=== PATIENT | male | born 1940 | race Caucasian/White ===

== ENCOUNTER → 2019-08-03 | Outpatient (CLI) | payer MEDICARE, SELFPAY ==
--- NOTE | 2019-08-03 13:21 | VDLE_ITS ---
Reason For Study: Swelling, Pain RIGHT GSV is normal. CFV is compressible, spontaneous, phasic, competent and demonstrates normal augmentation. FV is compressible, spontaneous, phasic, competent and demonstrates normal augmentation. POP V is compressible, spontaneous, phasic, competent and demonstrates normal augmentation. T/P Trunk is compressible. PTV is compressible. RT PerV is compressible. Procedure Exam performed in department. A preliminary report was called and/or faxed to Dr. Fried. Interpretation Summary Deep veins of the right lower extremity are patent and compressible segmentally. There is no evidence of right lower extremity deep vein thrombosis. Valvular competence appears intact within the proximal deep venous system on the right . The right great saphenous vein appears patent and compressible segmentally. Ordering Physician: Chris Fried Referring Physician: Chris Fried Performed By: Afua Hensley, ELLEN, RVT
== END | disposition home or self-care (01) ==
PROVIDERS: Family Provider Family Medicine; PCP Family Medicine; Referring Provider Family Medicine; Visit Provider Family Medicine
DX: M79.89 Other specified soft tissue disorders (principal); M79.661 Pain in right lower leg
CPT/HCPCS: 93971

== ENCOUNTER 2019-08-14 07:24 | Emergency (ER) | payer MEDICARE, SELFPAY ==
[2019-08-14 07:25] VITALS: BP 164/84; PULSE 60; RESP 19; TEMP 36.7; O2SAT 99; BMI 25.8
--- NOTE | 2019-08-14 07:39 | EKG12_ITS ---
Test Reason : CP Blood Pressure : / mmHG Vent. Rate : 059 BPM Atrial Rate : 059 BPM P-R Int : 186 ms QRS Dur : 088 ms QT Int : 428 ms P-R-T Axes : 112 044 001 degrees QTc Int : 423 ms Sinus bradycardia Left ventricular hypertrophy with repolarization abnormality Abnormal ECG Confirmed by NAVEEN MCCABE, MINDY ([id number]), department editor SHERIDAN GARRIDO ([id number]) on 08/17/2019 9:39:02 AM Referred By: TREE Confirmed By:MINDY HODGE MD
[2019-08-14 07:42] VITALS: O2SAT 99
--- NOTE | 2019-08-14 07:43 | RAD_ITS ---
STUDY: X-RAY CHEST REASON FOR EXAM: Male, 79 years old. Chest pain TECHNIQUE: Single AP portable view of the chest. COMPARISON: 12/29/2012 FINDINGS: Status post median sternotomy. The lungs are clear and expanded. There is no demonstrated pleural abnormality. Normal size heart. Normal mediastinum and myles. Normal visualized pulmonary arteries. Normal visualized aortic arch and descending thoracic aorta. Normal visualized thoracic spine. Multiple healed left rib fractures. There is no demonstrated abnormality of the visualized soft tissue structures of the upper abdomen. RAD/Chest 1 View (Portable) IMPRESSION: No active disease. Electronically Signed: Earl Perdomo MD at 8:05 EST Tel , Service support ,
--- NOTE | 2019-08-14 07:50 | ED.VIS.GEN ---
History of Present Illness Chief Complaint: Chest Pain Informant: Patient Limited by: - - Required redirection since he would not answer questions. Onset: Today, Yesterday Context: Sudden Onset Timing: Intermittent Quality: Discomfort neck and anterior right chest Location: Throat and anterior right chest Current Severity: - - Not present Maximum Severity: Moderate Worsened by: Nothing Relieved by: Sitting upright Associated Symptoms: Shortness of breath, diaphoresis Narrative: Patient is an elderly male with history of coronary bypass surgery 30 years ago and placement of stent 20 years ago. He states he had a stress test September of this year at [place] which revealed no abnormality. He does have history of GERD. He reports yesterday morning he awakened from sleep several times with sensation of his throat feeling closed and shortness of breath. The discomfort and sensation of his throat closing was alleviated after sitting up. He had several episodes this morning. He also experienced diaphoresis this morning. Symptoms were alleviated with sitting upright. States he had an episode every 30 minutes. He ate approximately 6 hours prior to going to bed. He had nothing between dinner and time he went to bed. He denies fever, chills or night sweats. He denies ocular, visual or auditory symptoms. He denies swelling of his tongue or throat at this time. He is not on an SHERRIE inhibitor. He did inform me several nights ago he woke up in a cold sweat. He had no other symptoms at that time. He denies black or maroon-colored stool. He does have swelling of his right lower extremity status post trauma and is wearing a compressive hose. Prior similar symptoms: No Recent Illness/Hospitalization: No - Past Medical History (1) Atherosclerotic coronary vascular disease Status: Acute (2) History of hypertension Status: Acute (3) History of type 2 diabetes mellitus Status: Acute (4) History of BPH Status: Acute (5) History of gastroesophageal reflux (GERD) Status: Acute Past Medical History - Allergies and Home Meds Allergies/Adverse Reactions: Allergies alprazolam [From Xanax] Adverse Reaction (Verified 08/14/19 07:41) Other EXTREME AGITATION Primary Care Physician: Chris Fried MD [Primary Care Provider] - Prior records reviewed: Yes Surgical History: coronary bypass surgery Lives: Spouse/ Significant Other Smoking Status: Never smoker Alcohol: None Drugs: None Review of Systems General: Reports: Sweats. Denies: Chills, Fever, Weight loss Eyes: Denies: Visual changes - bilaterally, Blurred Vision - bilaterally ENT: Denies: Rhinorrhea, Sore throat Cardiovascular: Reports: Chest pain Respiratory: Reports: Dyspnea Gastrointestinal: Denies: Abdominal pain, Nausea, Vomiting, Diarrhea, Melena, Hematochezia Genitourinary: Denies: Dysuria, Hematuria, Frequency Musculoskeletal: Denies: Myalgias, Arthralgias, Neck pain, Back pain, Swelling, Extremity Pain, -, - Neurological: Denies: Headache, Weakness, Numbness Hematologic: Denies: Easy bruising, Easy bleeding Allergy: Denies: Uticaria, Swelling of the mouth, Swelling of the tongue Physical Exam Vital Signs/Narrative: Vital Signs Temp Pulse Resp BP Pulse Ox 08/14/19 07:42 99 08/14/19 07:25 98.1 F 60 19 H 164/84 H 99 Inital Vital Signs reviewed: Yes General: Well nourished, Well developed, No Acute Distress Head: Normocephalic, Atraumatic Eyes: Perrl, EOMI. Negative for: Pale conjunctiva, Scleral icterus ENT: Moist mucous membranes, No rhinorrhea, - - Uvula is midline. There is no edema. Neck: Supple, Nontender, No lymphadenopathy, No JVD Cardiovascular: Regular rate, Regular rhythm, No murmurs, Normal S1, Normal S2, - - There is a well-healed median sternotomy scar noted. Respiratory: No distress, CTA bilaterally, Chest nontender Abdomen: Soft, Nontender, Nondistended, Normal bowel sounds Back: Nontender, Normal Inspection Extremities: Nontender, No edema Skin: Normal color, No rash, No Trauma. Negative for: Cyanosis, Diaphoresis, Jaundice Neurological: Alert, Oriented x3, Cranial nerves II-XII grossly intact, Normal Strength, Normal Sensation, Normal Gait Psychological: Normal affect, Normal Mood Diagnostic/Tx/Re-eval Chest X-Ray - ED: 1 View, Read by ED Physician, Normal, Heart, Bony Structures, No Acute Disease, Chronic Changes Impressions Chest X-Ray 08/14/19 07:43 IMPRESSION: No active disease. Electronically Signed: Earl Perdomo MD at 8:05 EST Tel , Service support , 08/14/19 07:43 Chest 1 View (Portable) [RAD] Stat Laboratory Results 08/14/19 08/14/19 07:30 07:30 WBC 5.8 RBC 3.70 L Hgb 11.3 L Hct 34.0 L MCV 91.9 MCH 30.5 MCHC 33.2 RDW Std Deviation 40.6 RDW Coeff of Shana 12.0 Plt Count 581 H MPV 9.2 Immature Gran % (Auto) 0.500 Neut % (Auto) 48.7 Lymph % (Auto) 35.2 [place] % (Auto) 12.3 H Eos % (Auto) 2.3 Baso % (Auto) 1.0 Absolute Neuts (auto) 2.8 Absolute Lymphs (auto) 2.03 Nucleated RBC % 0 Sodium 126 L Potassium 5.3 H Chloride 93 L Carbon Dioxide 25.0 Anion Gap 8 BUN 20 H Creatinine 1.77 H Estim Creat Clear Calc 36.09 Est GFR (MDRD) Af Amer 48 L Est GFR (MDRD) Non-Af 40 L BUN/Creatinine Ratio 11.3 Glucose 163 H Calcium 9.2 Troponin I < 0.015 CBC is unremarkable. There is mild anemia, which is not new per patient and . Creatinine is elevated at 1.77. Patient states that is baseline for him. Troponin with onset of symptoms approximate 48 hours ago is normal. Based on patient's history and negative work-up suspect his chest pain is secondary to GERD. - EKG Initial EKG Interpretation: Sinus Bradycardia - Has bradycardia with a ventricular rate of 59. [place] interval is 186 ms. QS duration 88 ms. QT duration 428 ms. [place] is normal. There is evidence of mild LVH with no ossific ST-T wave changes. Prior: Unchanged - Medical Decision Making Since patient is greater than age 65 with known coronary disease and risk factors EKG blood work is obtained to assess for cardiac etiology. History is suggestive of reflux. Appropriate blood work was obtained to assess for anemia, renal function. EKG was obtained as well. Will obtain chest x-ray to determine if there is hiatal hernia or any pulmonary process that may be causing his symptoms. This would include esophageal disease. Since cardiac work-up is negative and symptoms are consistent with GERD he was prescribed omeprazole. ED Disposition - Plan for ED Patient: Disposition: Home or Assisted Living Diagnosis: Chest pain due to GERD Instructions: GERD (Adult), Lifestyle Changes for Controlling GERD Prescriptions: Omeprazole 40 mg PO DAILY #30 capsule.dr Prescription Printed Referrals: Chris Fried MD [Primary Care Provider] - 3-5 Days if not improving
[2019-08-14 07:59] LABS: Absolute Lymphocyte Count 2.03 X10^3/uL (0.83-4.51); Absolute Neutrophil Count 2.8 X10^3/uL (2.0-7.7); Basophil# 0.06 X10^3/uL; Eosinophil# 0.13 X10^3/uL; Eosinophils% 2.3 % (0-5); Hemoglobin 11.3 g/dL (13.0-16.5); Lymphocyte # 2.03 X10^3/ul (4.0); Lymphocyte % 35.2 % (19-41); Mean Corp Hgb Conc 33.2 g/dL (32-36); Mean Corpuscular Hgb 30.5 pg (27.0-32.0); Mean Corpuscular Volume 91.9 fL (80-94); Mean Platelet Vol. 9.2 fl (6.2-12.0); Monocyte# 0.71 X10^3/uL; Monocyte% 12.3 % (0-10); NRBC Flagged by Analyzer 0 % (0-5); Neutrophil # 2.81 X10^3/uL (2.7-7.7); Neutrophil % 48.7 % (47-70); Platelet Count 581 K/mm3 (150-450); RBC Distribution Width SD 40.6 fl (35.1-43.9); White Blood Count 5.8 K/mm3 (4.4-11.0)
[2019-08-14 08:02] LABS: Anion Gap 8 (5-15); BUN 20 mg/dL (7-18); BUN/Creat Ratio 11.3 RATIO (10-20); Calcium,Total 9.2 mg/dL (8.5-10.1); Chloride 93 mmol/L (98-107); Creatinine, Serum 1.77 mg/dL (0.70-1.30); EST Glomerular Filtration Rate 40 mL/min (>60); Est Glom Filt Rate - Afr Amer 48 mL/min (>60); Estimated Creatinine Clearance 36.09 ml/min; Glucose 163 mg/dL (74-106); Potassium 5.3 mmol/L (3.5-5.1); Sodium Level 126 mmol/L (136-145)
[2019-08-14 09:13] VITALS: BP 134/76; PULSE 55; RESP 19; O2SAT 98
[2019-08-14 09:41] VITALS: BP 133/78; PULSE 56; RESP 18; O2SAT 99
== END 2019-08-14 09:41 | disposition home or self-care (01) ==
PROVIDERS: Emergency Provider Emergency Medicine; Family Provider Family Medicine; PCP Family Medicine
DX: K21.9 Gastro-esophageal reflux disease without esophagitis (principal); R07.9 Chest pain, unspecified; I25.10 Atherosclerotic heart disease of native coronary artery without angina pectoris; Z95.1 Presence of aortocoronary bypass graft; I10 Essential (primary) hypertension; E11.9 Type 2 diabetes mellitus without complications; N40.0 Benign prostatic hyperplasia without lower urinary tract symptoms
CPT/HCPCS: 71045; 80048; 84484; 85025; 93005; 99284; A4216

== ENCOUNTER 2019-09-01 12:55 | Inpatient (IN) | payer MEDICARE, SELFPAY ==
[2019-09-01] VITALS (8 sets, daily range): BP systolic 135–154; BP diastolic 66–78; PULSE 57–71; RESP 15–16; TEMP 36.6–37.1; O2SAT 97–98; BMI 26.4; BMI 25.9
--- NOTE | 2019-09-01 13:14 | EKG12_ITS ---
Test Reason : ABNL LABS Blood Pressure : / mmHG Vent. Rate : 060 BPM Atrial Rate : 060 BPM P-R Int : 186 ms QRS Dur : 096 ms QT Int : 412 ms P-R-T Axes : 000 056 027 degrees QTc Int : 412 ms Normal sinus rhythm Normal ECG Confirmed by NAVEEN MCCABE, MINDY ([id number]), rewrite editor RANDA PEDERSEN ([id number]) on 09/02/2019 11:25:05 AM Referred By: Bonita Randall Confirmed By:MINDY HODGE MD
--- NOTE | 2019-09-01 13:15 | ED.DCSUM_ITS ---
History of Present Illness Chief Complaint: Abn Labs Informant: Patient Narrative: Patient is a 79-year-old male with history of BPH, hypertension and diabetes mellitus presenting with abnormal lab work. Patient had blood work that showed a sodium of 120 and a potassium 5.7. This was a repeat lab draw. He was sent to the emergency room for further evaluation. Patient is on losartan. He denies any history of hyponatremia. He is not currently on any steroids. He states otherwise he is been feeling well. He denies any physical complaints at this time. Past Medical History - Allergies and Home Meds Allergies/Adverse Reactions: Allergies alprazolam [From Xanax] Adverse Reaction (Verified 09/01/19 12:58) Other EXTREME AGITATION Past Medical History: - - BPH, hypertension, proximal atrial fibrillation, coronary artery disease, hyperlipidemia, DM 2, CKD 3 Surgical History: coronary bypass surgery Lives: With Family Smoking Status: Never smoker Review of Systems General: Denies: Chills, Fever, Sweats Eyes: Denies: Visual changes - bilaterally, Diplopia ENT: Denies: Rhinorrhea, Sore throat Cardiovascular: Denies: Chest pain, Palpitations Respiratory: Denies: Dyspnea, Cough, Dyspnea on exertion Gastrointestinal: Denies: Abdominal pain, Nausea, Vomiting, Diarrhea, Melena, Hematochezia Genitourinary: Denies: Dysuria, Hematuria, Frequency Musculoskeletal: Denies: Back pain, Extremity Pain Skin: Denies: Rash, Wounds Neurological: Denies: Headache, Weakness, Numbness Physical Exam Vital Signs/Narrative: Vital Signs Temp Pulse Resp BP Pulse Ox 09/01/19 12:55 98.8 F 68 15 147/66 H 98 Inital Vital Signs reviewed: Yes General: Well nourished, Well developed, No Acute Distress Head: Normocephalic, Atraumatic Eyes: Perrl, EOMI ENT: Moist mucous membranes, No rhinorrhea Neck: Supple, Nontender Cardiovascular: Regular rate, Regular rhythm, No murmurs Respiratory: No distress, CTA bilaterally, Chest nontender Abdomen: Soft, Nontender, Nondistended, Normal bowel sounds Back: Nontender, Normal Inspection Extremities: Nontender, No edema Skin: Normal color, No rash Neurological: Alert, Oriented x3, Cranial nerves II-XII grossly intact, Normal Strength, Normal Sensation Psychological: Normal affect, Normal Mood Diagnostic/Tx/Re-eval Chest X-Ray - ED: 2 View, Read by ED Physician, Read by Radiologist, No Acute Disease Clinical Impression(s) from Imaging Studies Chest X-Ray 09/01/19 14:00 IMPRESSION: Hyperinflation. No acute abnormality is seen. Electronically Signed: Jerson Brasher, at 14:20 EST , Service support , Laboratory Data 09/01/19 09/01/19 09/01/19 13:30 13:30 14:05 WBC 7.5 RBC 3.17 L Hgb 9.9 L Hct 28.4 L MCV 89.6 MCH 31.2 MCHC 34.9 RDW Std Deviation 41.4 RDW Coeff of Shana 12.6 Plt Count 213 MPV 10.2 Immature Gran % (Auto) 0.300 Neut % (Auto) 74.1 H Lymph % (Auto) 14.6 L [place] % (Auto) 8.9 Eos % (Auto) 1.7 Baso % (Auto) 0.4 Absolute Neuts (auto) 5.6 Absolute Lymphs (auto) 1.09 Nucleated RBC % 0 Sodium Cancelled 125 L Potassium Cancelled 6.1 H* Chloride Cancelled 95 L Carbon Dioxide Cancelled 24.0 Anion Gap Cancelled 6 BUN Cancelled 21 H Creatinine Cancelled 1.61 H Estim Creat Clear Calc Cancelled 39.67 Est GFR (MDRD) Af Amer Cancelled 54 L Est GFR (MDRD) Non-Af Cancelled 44 L BUN/Creatinine Ratio Cancelled 13.0 Glucose Cancelled 117 H Calcium Cancelled 8.8 Urine Color Urine Clarity Urine pH Ur Specific [place] Urine Protein Urine Glucose (UA) Urine Ketones Urine Occult Blood Urine Nitrite Urine Bilirubin Urine Urobilinogen Ur Leukocyte Esterase Urine RBC Urine WBC Ur Squamous Epith Cells Urine Bacteria Urine Mucus 09/01/19 14:20 WBC RBC Hgb Hct MCV MCH MCHC RDW Std Deviation RDW Coeff of Shana Plt Count MPV Immature Gran % (Auto) Neut % (Auto) Lymph % (Auto) [place] % (Auto) Eos % (Auto) Baso % (Auto) Absolute Neuts (auto) Absolute Lymphs (auto) Nucleated RBC % Sodium Potassium Chloride Carbon Dioxide Anion Gap BUN Creatinine Estim Creat Clear Calc Est GFR (MDRD) Af Amer Est GFR (MDRD) Non-Af BUN/Creatinine Ratio Glucose Calcium Urine Color Yellow Urine Clarity Clear Urine pH 6.0 Ur Specific [place] 1.010 Urine Protein 30 H Urine Glucose (UA) Normal Urine Ketones Negative Urine Occult Blood Negative Urine Nitrite Negative Urine Bilirubin Negative Urine Urobilinogen Normal Ur Leukocyte Esterase Negative Urine RBC 0 SEEN Urine WBC 0 SEEN Ur Squamous Epith Cells 0 SEEN Urine Bacteria 0 SEEN Urine Mucus 0 SEEN - Rhythm Strip Rhythm Strip: Sinus Rhythm Rate: 60 Ectopy: None - EKG Initial EKG Interpretation: Sinus Rhythm, - - Normal sinus rhythm with a rate of [address] segments Normal axis - Medical Decision Making Patient is evaluated for abnormal hemoglobin potassium. He was found to have an elevated potassium as well as a low sodium. Patient is not have any EKG changes and is asymptomatic. He has not given sodium bicarb or calcium gluconate as he is not having any EKG changes. He is given a total of 1 L of IV fluids in the emergency room. He will be admitted to PCU for further electrolyte monitoring. I imagine his electrode abnormalities are secondary to his diuretics. Chest x- rays obtained does not show any abnormal masses. Patient is stable at time of disposition. He is agreeable with this plan. ED Disposition - Plan for ED Patient: Disposition: Acute Care Hospital [facility] Diagnosis: Hyperkalemia, Hyponatremia
[2019-09-01 13:37] LABS: Absolute Lymphocyte Count 1.09 X10^3/uL (0.83-4.51); Absolute Neutrophil Count 5.6 X10^3/uL (2.0-7.7); Basophil# 0.03 X10^3/uL; Basophil% 0.4 % (0-1); Eosinophil# 0.13 X10^3/uL; Eosinophils% 1.7 % (0-5); Hematocrit 28.4 % (40-54); Hemoglobin 9.9 g/dL (13.0-16.5); Lymphocyte # 1.09 X10^3/ul (4.0); Lymphocyte % 14.6 % (19-41); Mean Corp Hgb Conc 34.9 g/dL (32-36); Mean Corpuscular Hgb 31.2 pg (27.0-32.0); Mean Corpuscular Volume 89.6 fL (80-94); Mean Platelet Vol. 10.2 fl (6.2-12.0); Monocyte# 0.67 X10^3/uL; Monocyte% 8.9 % (0-10); NRBC Flagged by Analyzer 0 % (0-5); Neutrophil # 5.55 X10^3/uL (2.7-7.7); Neutrophil % 74.1 % (47-70); Platelet Count 213 K/mm3 (150-450); RBC Distribution Width CV 12.6 % (11.6-14.6); RBC Distribution Width SD 41.4 fl (35.1-43.9); Red Blood Count 3.17 M/mm3 (4.6-6.2); White Blood Count 7.5 K/mm3 (4.4-11.0)
--- NOTE | 2019-09-01 14:00 | RAD_ITS ---
STUDY: X-RAY CHEST REASON FOR EXAM: Male, 79 years old. Add potassium and decreased sodium levels. TECHNIQUE: PA and lateral views of the chest. COMPARISON: Comparison is made with prior examination of August 14, 2019. FINDINGS: EKG electrodes are seen. Hyperinflation. Scattered calcified granulomas. There is no demonstrated pleural abnormality. Sternal cerclage wires and vascular clips are present from a prior sternotomy and coronary artery bypass graft procedure (CABG). Normal mediastinum and myles. Normal visualized pulmonary arteries. There is atherosclerotic tortuosity of the aortic arch and descending thoracic aorta. There are degenerative changes of the visualized thoracic spine. Normal visualized ribs, clavicles, and shoulders. There is no demonstrated abnormality of the visualized soft tissue structures of the upper abdomen. RAD/Chest PA and Lateral IMPRESSION: Hyperinflation. No acute abnormality is seen. Electronically Signed: Jerson Brasher, at 14:20 EST , Service support ,
[2019-09-01 14:28] LABS: Bacteria 0 SEEN /hpf (None Seen); Mucous, Urine 0 SEEN /hpf (<or=2+); Red Blood Cells-Urine 0 SEEN /hpf (0-5); Squamous Epithelial Cells - UA 0 SEEN /hpf (0-5); White Blood Cells 0 SEEN /hpf (0-5)
[2019-09-01 14:29] LABS: Anion Gap 6 (5-15); BUN 21 mg/dL (7-18); Calcium,Total 8.8 mg/dL (8.5-10.1); Chloride 95 mmol/L (98-107); Creatinine, Serum 1.61 mg/dL (0.70-1.30); EST Glomerular Filtration Rate 44 mL/min (>60); Est Glom Filt Rate - Afr Amer 54 mL/min (>60); Estimated Creatinine Clearance 39.67 ml/min; Glucose 117 mg/dL (74-106); Potassium 6.1 mmol/L (3.5-5.1); Sodium Level 125 mmol/L (136-145)
--- NOTE | 2019-09-01 14:29 | ED.RN ---
LAB CALLED WITH POTASSIUM 6.1.
[2019-09-01 14:30] LABS: Color, Urine Yellow (Yellow); Glucose, Dipstick Normal (Normal); Ketone-Dipstick Negative (Negative); Leukocyte Esterase-Dipstick Negative /ul (Negative); Nitrite-Dipstick Negative (Negative); Occult Blood-Urine Negative /ul (Negative); Protein-Dipstick 30 mg/dl (Negative); Urine Bilirubin Dipstick Negative (Negative); Urine Clarity Clear (Clear); Urine Urobilinogen Normal (Normal)
--- NOTE | 2019-09-01 15:12 | PCM.HP.STD ---
Problem List (1) Atherosclerotic coronary vascular disease Status: Chronic Qualifiers: Coronary Disease-Associated Artery/Lesion type: unspecified vessel or lesion type Associated angina: angina presence unspecified (2) History of BPH Status: Chronic (3) History of gastroesophageal reflux (GERD) Status: Chronic (4) History of hypertension Status: Chronic (5) History of type 2 diabetes mellitus Status: Chronic History of Present Illness Date of Admission: 09/01/19 Chief Complaint: Abnormal labs The patient is a 79 year old M with past medical history of CAD status post CABG, stents, hypertension, hyperlipidemia, type II DM who presented from his primary care doctor's office with abnormal blood work. Patient denied any complaints of diarrhea or nausea or vomiting. He is on losartan. He denied any fever or chills or dizziness or chest pain. Vitals in ED show temperature of 98.8F, heart rate 68, blood pressure 147 over 60s, respiratory 15, SPO2 was 90% on room air. BC count of 7.5, hemoglobin 9.9, platelet count 213, sodium 125, potassium 2.5, chloride 95, BUN 21, creatinine 1.61, which is about his baseline. His UA was unremarkable. Admitting chest x-ray showed no acute cardiopulmonary process. Past Medical History Past Medical History (Chronic Problems): Chronic Problems Atherosclerotic coronary vascular disease (Chronic) History of hypertension (Chronic) History of type 2 diabetes mellitus (Chronic) History of BPH (Chronic) History of gastroesophageal reflux (GERD) (Chronic) Allergies alprazolam [From Xanax] Adverse Reaction (Verified 09/01/19 12:58) Other EXTREME AGITATION Home Medications: Ambulatory Orders Medication Instructions Recorded Amlodipine [Norvasc] 5 mg PO DAILY 08/14/19 Aspirin 325 mg PO DAILY 08/14/19 Atorvastatin Calcium [Lipitor] 40 mg PO QHS 08/14/19 Cinnamon Bark [Cinnamon] 500 mg PO DAILY 08/14/19 Isosorbide Mononitrate [Imdur] 60 mg PO DAILY 08/14/19 Losartan Potassium [Cozaar] 50 mg PO DAILY 08/14/19 Metformin HCl 850 mg PO BID 08/14/19 Metoprolol Tartrate [Lopressor 50 mg PO BID 08/14/19 (Beta Jessy)] [place]-3 Fatty Acids/Fish Oil 1 cap PO BID 08/14/19 [[place] 3 Fish Oil Softgel] Omeprazole 40 mg PO DAILY #30 capsule. 08/14/19 Vitamin A 10,000 unit PO DAILY 08/14/19 Ascorbic Acid [Vitamin C] 1,000 mg PO DAILY 09/01/19 Cyanocobalamin (Vitamin B-12) 1,000 mcg PO DAILY 09/01/19 [Vitamin B-12] Magnesium Oxide [Mag-Ox 400] 400 mg PO DAILY 09/01/19 Tamsulosin HCl [Flomax] 0.4 mg PO QHS 09/01/19 Turmeric 400 mg PO DAILY 09/01/19 Vitamin E 400 unit PO DAILY 09/01/19 Surgical History: coronary bypass surgery, - - s/p cardiac stenst Lives: Spouse/ Significant Other Smoking Status: Never smoker Tobacco Use: Non-smoker Alcohol: None Drugs: None Review of Systems Constitutional: Denies: Anorexia, Chills, Fever, Night Sweats, Malaise, Weakness, Weight Change, Fatigue Eyes: Denies: Cataracts, Conjunctivae Inflammation, Pain, Redness HEENT: Denies: Difficulty Hearing, Difficulty Swallowing, Head Aches, Hearing Changes, Sinus Congestion, Sinus Drainage Cardiovascular: Denies: Chest Pain, Claudication, Orthopnea, Palpitations, Paroxysmal Noc. Dyspnea Respiratory: Denies: Cough, Hemoptysis, Shortness of breath at rest, Shortness of breath upon exertion, Sputum production Gastrointestinal: Denies: Abdominal Pain, Constipation, Hematemesis, Hematochezia, Nausea, Vomiting Genitourinary: Denies: Dysuria, Frequency, Incontinence, Nocturia Musculoskeletal: Denies: Joint Pain, Joint stiffness, Joint swelling, Joint Tenderness Skin: Denies: Pruritis, Rash, Wounds Neurological: Denies: Difficulty swallowing, Focal weakness, Numbness, Tingling Psychiatric: Denies: Anxiety, Depression, Homicidal Ideations, Suicidal Ideations Hematologic/ Lymphatic: Denies: Easy Bruising, Easy Bleeding VTE Information - Inpt Only VTE Present on Admission: No VTE Pharm Prophylaxis ordered?: Yes Patient Problems: Active and Suspected Problems Hyperkalemia (Acute) Hyponatremia (Acute) - Physical Exam Vitals/I&O's: Vital Signs Temp Pulse Resp BP Pulse Ox 98.8 F 57 L 16 136/70 H 97 09/01/19 12:55 09/01/19 15:00 09/01/19 15:00 09/01/19 15:00 09/01/19 15:00 Oxygen Delivery Method Room Air Weight: 83.6 kg Body Mass Index (BMI) 26.4 General: Alert, Oriented x3, Cooperative HEENT: Atraumatic, PERRLA, EOMI, Normocephalic Neck: Supple, No JVD, Negative Carotid Bruits Lungs: Clear to auscultation, Normal air movement Cardiovascular: Regular rate, No murmurs Abdomen: Bowel Sounds Present, Soft, Non Tender Extremities: No edema, Capillary Refill Less than 3 Seconds Skin: No rashes, No breakdown Musculoskeletal: No Tenderness to Palpation of Joints or Extremities Neurological: Cranial nerves II-XII grossly intact Psych/Mental Status: Normal Affect, Appropriate Laboratory Results 09/01/19 13:30: WBC 7.5, RBC 3.17 L, Hgb 9.9 L, Hct 28.4 L, MCV 89.6, MCH 31.2, MCHC 34.9, RDW Std Deviation 41.4, RDW Coeff of Shana 12.6, Plt Count 213, MPV 10.2, Immature Gran % (Auto) 0.300, Neut % (Auto) 74.1 H, Lymph % (Auto) 14.6 L, [place] % (Auto) 8.9, Eos % (Auto) 1.7, Baso % (Auto) 0.4, Absolute Neuts (auto) 5.6, Absolute Lymphs (auto) 1.09, Nucleated RBC % 0 09/01/19 13:30: Sodium Cancelled, Potassium Cancelled, Chloride Cancelled, Carbon Dioxide Cancelled, Anion Gap Cancelled, BUN Cancelled, Creatinine Cancelled, Estim Creat Clear Calc Cancelled, Est GFR (MDRD) Af Amer Cancelled, Est GFR (MDRD) Non-Af Cancelled, BUN/Creatinine Ratio Cancelled, Glucose Cancelled, Calcium Cancelled 09/01/19 14:05: Sodium 125 L, Potassium 6.1 H*, Chloride 95 L, Carbon Dioxide 24.0, Anion Gap 6, BUN 21 H, Creatinine 1.61 H, Estim Creat Clear Calc 39.67, Est GFR (MDRD) Af Amer 54 L, Est GFR (MDRD) Non-Af 44 L, BUN/Creatinine Ratio 13.0, Glucose 117 H, Calcium 8.8 09/01/19 14:20: Urine Color Yellow, Urine Clarity Clear, Urine pH 6.0, Ur Specific [place] 1.010, Urine Protein 30 H, Urine Glucose (UA) Normal, Urine Ketones Negative, Urine Occult Blood Negative, Urine Nitrite Negative, Urine Bilirubin Negative, Urine Urobilinogen Normal, Ur Leukocyte Esterase Negative, Urine RBC 0 SEEN, Urine WBC 0 SEEN, Ur Squamous Epith Cells 0 SEEN, Urine Bacteria 0 SEEN, Urine Mucus 0 SEEN Current Medications Sodium Chloride () 500 mls @ 999 mls/hr IV .Q31M [facility] Stop: 09/01/19 15:45 Assessment/Plan All Active Problems Hyperkalemia (Acute) Hyponatremia (Acute) 79 year old M with past medical history of CAD status post CABG, stents, hypertension, hyperlipidemia, type II DM who presented from his primary care doctor's office with abnormal blood work. 1. Electrolyte imbalances -hyponatremia, hyperkalemia. No acute EKG changes Patient is on losartan; hold losartan Continue on IV fluids, repeat blood work Nephrology consult 2. Hypertension, controlled, continue on noted pain, continue to monitor vitals 3. Hyperlipidemia, continue on atorvastatin 4. CAD status post stent, status post CABG, continue on aspirin, statin 5. Type II DM, will hold metformin, will monitor with blood glucose checks and insulin sliding scale 6. DVT prophylaxis - Heparin SC 7. Code status - Full code Discussed in detail with the patient explaining the various types of CODE STATUS-full code, DNR CCA, DNR CC. Recommended he appoints a healthcare power of energy attorney. He says he does not want to be kept on artificial life support and would like to have a DNR. He however could not determine if he wants to be a DNR CCA or DNR CCA. He would like some more time to decide on that. He will let the team know later. Time spent discussing CODE STATUS 18 minutes Code Visit Inpatient E&M: 49316 Init Hosp L2 Procedures: 41672 Advncd Care Plan 30 Min
[2019-09-01] MEDS: 0.9% Normal Saline 1,000 ML 75 ML IV (16:54)
[2019-09-01 17:00] LABS: Bedside Glucose 112 mg/dL (70-110)
[2019-09-01 17:26] LABS: Albumin, Serum 3.4 g/dL (3.2-5.0); BUN 19 mg/dL (7-18); BUN/Creat Ratio 12.8 RATIO (10-20); Calcium,Total 8.2 mg/dL (8.5-10.1); Chloride 97 mmol/L (98-107); Creatinine, Serum 1.49 mg/dL (0.70-1.30); EST Glomerular Filtration Rate 49 mL/min (>60); Est Glom Filt Rate - Afr Amer 59 mL/min (>60); Estimated Creatinine Clearance 42.87 ml/min; Glucose 119 mg/dL (74-106); Phosphorus 2.8 mg/dL (2.5-4.9); Potassium 4.9 mmol/L (3.5-5.1); Sodium Level 128 mmol/L (136-145)
[2019-09-01] MEDS: Atorvastatin Calcium 40 MG Tablet PO (22:17)
[2019-09-01] MEDS: Tamsulosin HCl 0.4 MG Capsule PO (22:17)
[2019-09-01 22:26] LABS: Bedside Glucose 106 mg/dL (70-110)
[2019-09-01 23:19] LABS: Urine Sodium 47 mmol/L (Not Establ.)
[2019-09-01 23:26] LABS: Protein, Urine (Random) 45.1 mg/dL (<11.9)
[2019-09-02] VITALS (9 sets, daily range): BP systolic 124–142; BP diastolic 69–76; PULSE 70–92; RESP 16–18; TEMP 36.6–36.7; O2SAT 97–98
--- NOTE | 2019-09-02 05:55 | US_ITS ---
STUDY: RENAL ULTRASOUND - COMPLETE REASON FOR EXAM: Male, 79 years old. Chronic kidney disease. TECHNIQUE: Ultrasound evaluation of the kidneys was performed with real-time and static jackson-scale imaging. COMPARISON: None. FINDINGS: RIGHT KIDNEY: Normal location of the right kidney, which is normal in size. The right kidney measures 11.1 cm x 5.7 cm x 5.9 cm. There is a normal cortex of the right kidney. The renal cortex measures 1.5 cm. There is no right renal mass or cyst. There are no right renal calculi. There is no right hydronephrosis. DISTAL RIGHT URETER: There is non-visualization of the distal right ureter. There is no demonstrated right ureterovesical junction calculus. There is a visualized right ureteral jet. LEFT KIDNEY: Normal location of the left kidney, which is normal in size. The left kidney measures 11.1 cm x 4.8 cm x 5.5 cm. There is a normal cortex of the left kidney. The renal cortex measures 1.5 cm. There is no left renal mass or cyst. There are no left renal calculi. There is no left hydronephrosis. DISTAL LEFT URETER: There is non-visualization of the distal left ureter. There is no demonstrated left ureterovesical junction calculus. There is a visualized left ureteral jet. BLADDER: The distended urinary bladder has a volume of 579 ml. There is a normal wall thickness of the distended urinary bladder. There is no demonstrated mass within the urinary bladder. There are no demonstrated bladder calculi. US/Kidney and Bladder IMPRESSION: Normal ultrasound of the kidneys and urinary bladder. Electronically Signed: Jerson Brasher, at 13:11 EST , Service support ,
[2019-09-02] MEDS: Heparin Injection (Vial) 5,000 UNIT/ML VIAL 5000 UNIT SC (06:25)
[2019-09-02 06:51] LABS: Bedside Glucose 118 mg/dL (70-110)
[2019-09-02 07:00] LABS: Absolute Lymphocyte Count 1.24 X10^3/uL (0.83-4.51); Basophil# 0.02 X10^3/uL; Basophil% 0.4 % (0-1); Eosinophil# 0.13 X10^3/uL; Eosinophils% 2.6 % (0-5); Hematocrit 30.6 % (40-54); Hemoglobin 10.6 g/dL (13.0-16.5); Lymphocyte # 1.24 X10^3/ul (4.0); Lymphocyte % 24.8 % (19-41); Mean Corp Hgb Conc 34.6 g/dL (32-36); Mean Corpuscular Hgb 31.4 pg (27.0-32.0); Mean Corpuscular Volume 90.5 fL (80-94); Mean Platelet Vol. 9.8 fl (6.2-12.0); NRBC Flagged by Analyzer 0 % (0-5); Platelet Count 205 K/mm3 (150-450); RBC Distribution Width CV 12.7 % (11.6-14.6); RBC Distribution Width SD 42.2 fl (35.1-43.9); Red Blood Count 3.38 M/mm3 (4.6-6.2)
[2019-09-02 07:16] LABS: ALB/GLOB Ratio 0.9 RATIO (0.9-2.4); AST(SGOT) 22 U/L (15-37); Alanine Aminotransfer ALT/SGPT 23 U/L (16-61); Albumin, Serum 3.6 g/dL (3.2-5.0); Alkaline Phosphatase 65 U/L (45-117); Anion Gap 6 (5-15); BUN 18 mg/dL (7-18); BUN/Creat Ratio 13.4 RATIO (10-20); Calcium,Total 8.9 mg/dL (8.5-10.1); Chloride 103 mmol/L (98-107); Creatinine, Serum 1.34 mg/dL (0.70-1.30); EST Glomerular Filtration Rate 55 mL/min (>60); Est Glom Filt Rate - Afr Amer 67 mL/min (>60); Estimated Creatinine Clearance 47.67 ml/min; Globulin 3.9 g/dL (2.2-4.2); Glucose 119 mg/dL (74-106); Potassium 4.8 mmol/L (3.5-5.1); Protein, Total 7.5 g/dL (6.4-8.2); Sodium Level 134 mmol/L (136-145)
--- NOTE | 2019-09-02 08:24 | CON.PCM_ITS ---
Consultation - Renal 09/02/19 PCP/ Referring MD: Requesting physician: [] Primary care physician: Chris Fried MD Reason for Consultation:: electrolyte imbalance - History of Present Illness History of Present Illness: The patient is a 79 year old M with past medical history of CAD s/p CABG, stents, hypertension, hyperlipidemia, type II DM who presented from his primary care doctor's office for abnormal blood work. Patient denied any complaints of nausea, vomiting, diarrhea or anorexia. He denied fever or chills, no recent infectious process, no chest pain, no SOB. Denied urinary complaints. He is on losartan and aleve at home. Creatinine on admit 1.6 improved to 1.34 after Losartan discontinued and iv fluids received. Potassium was elevated at 6.1. He admits to drinking OJ. Sodium low at 125 improved to 134 today. His baseline creatinine appears to be 1.3. He has not seen a communication skills instructor in the past. Renal US ordered pending. His UA was unremarkable for blood but had trace protein. Admitting chest x-ray showed no acute cardiopulmonary process. - Allergies Allergies: Allergies alprazolam [From Xanax] Adverse Reaction (Verified 09/01/19 12:58) Other EXTREME AGITATION - Current Medications Current Medications: Current Medications Acetaminophen (Tylenol) 650 mg PO Q6H PRN PRN PRN Reason: Pain Score 1-3/Temp > 100.7 F Amlodipine Besylate (Norvasc) 5 mg PO DAILY [facility] Aspirin (Aspirin) 325 mg PO DAILY@0800 [facility] Atorvastatin Calcium (Lipitor) 40 mg PO QHS [facility] Last Admin: 09/01/19 22:17 Dose: 40 mg Documented by: Dextrose (D50w Syringe) 0 gm IV X1 PRN; Protocol PRN Reason: Hypoglycemia Glucagon () 1 mg IM .X1 PRN PRN Reason: Hypoglycemia Heparin Sodium (Porcine) (Heparin Na) 5,000 unit SC Q8 [facility] Last Admin: 09/02/19 06:25 Dose: 5,000 unit Documented by: Insulin Human Lispro (Humalog Kwikpen (Bkc)) 0 unit SC ACHS [facility]; Protocol Last Admin: 09/02/19 06:29 Dose: Not Given Documented by: Isosorbide Mononitrate (Imdur) 60 mg PO DAILY [facility] Magnesium Oxide (Mag-Ox 400) 400 mg PO DAILYCM [facility] Nitroglycerin (Nitrostat) 0.4 mg SUBLINGUAL Q5M PRN PRN Reason: CARDIAC/CHEST PAIN Ondansetron HCl (Zofran) 4 mg IV Q8H PRN PRN PRN Reason: NAUSEA/VOMITING Pantoprazole Sodium (Protonix) 40 mg PO DAILY [facility] Sodium Chloride () 10 - 40 ml IV UD PRN PRN Reason: SALINE FLUSH Tamsulosin HCl (Flomax) 0.4 mg PO QHS [facility] Last Admin: 09/01/19 22:17 Dose: 0.4 mg Documented by: - Past Medical History Past Medical History (Chronic Problems): Chronic Problems Atherosclerotic coronary vascular disease (Chronic) History of hypertension (Chronic) History of type 2 diabetes mellitus (Chronic) History of BPH (Chronic) History of gastroesophageal reflux (GERD) (Chronic) - Past Surgical History Surgical History: coronary bypass surgery, - - s/p cardiac stenst - Social History Smoking Status: Never smoker Alcohol: None Drugs: None Review of Systems Constitutional: Denies: Anorexia, Chills, Fever, Weakness, Fatigue Eyes: Denies: Vision Change Cardiovascular: Denies: Chest Pain Respiratory: Denies: Cough, Shortness of Breath Gastrointestinal: Denies: Abdominal Pain, Constipation, Diarrhea, Nausea, Vomiting Genitourinary: Denies: Dysuria, Frequency, Hematuria Musculoskeletal: Denies: Arm Pain, Back Pain Skin: Denies: Rash Neurological: Denies: Balance problems Hematologic/ Lymphatic: Denies: Anemia Patient Problems: Active and Suspected Problems Hyperkalemia (Acute) Hyponatremia (Acute) - Physical Exam Vitals/I&O's: Vital Signs Temp Pulse Resp BP Pulse Ox 98.1 F 75 16 132/76 H 97 09/02/19 02:01 09/02/19 07:50 09/02/19 02:01 09/02/19 02:01 09/02/19 02:01 Oxygen Delivery Method Room Air Weight: 80.1 kg Body Mass Index (BMI) 25.9 Intake and Output for Last 24 Hours 08/31/19 09/01/19 09/02/19 23:59 23:59 23:59 Intake Total 1240 / 1480 1540 / 1540 Output Total 2300 / 2300 Balance 1240 / 80 -760 / -760 General: Alert, Oriented x3, Cooperative, No apparent distress HEENT: PERRLA, EOMI Neck: Supple Lungs: Clear to auscultation Cardiovascular: Regular rate Abdomen: Bowel Sounds Present, Soft, Non Tender, Non-Distended Extremities: No edema Skin: No rashes Musculoskeletal: No Muscle Wasting Neurological: Cranial nerves II-XII grossly intact Psych/Mental Status: Normal Affect, Appropriate, Alert and oriented to time, place, person, mood and affect Laboratory Results 09/01/19 13:30: WBC 7.5, RBC 3.17 L, Hgb 9.9 L, Hct 28.4 L, MCV 89.6, MCH 31.2, MCHC 34.9, RDW Std Deviation 41.4, RDW Coeff of Shana 12.6, Plt Count 213, MPV 10.2, Immature Gran % (Auto) 0.300, Neut % (Auto) 74.1 H, Lymph % (Auto) 14.6 L, [place] % (Auto) 8.9, Eos % (Auto) 1.7, Baso % (Auto) 0.4, Absolute Neuts (auto) 5.6, Absolute Lymphs (auto) 1.09, Nucleated RBC % 0 09/01/19 13:30: Sodium Cancelled, Potassium Cancelled, Chloride Cancelled, Carbon Dioxide Cancelled, Anion Gap Cancelled, BUN Cancelled, Creatinine Cancelled, Estim Creat Clear Calc Cancelled, Est GFR (MDRD) Af Amer Cancelled, Est GFR (MDRD) Non-Af Cancelled, BUN/Creatinine Ratio Cancelled, Glucose Cancelled, Calcium Cancelled 09/01/19 14:05: Sodium 125 L, Potassium 6.1 H*, Chloride 95 L, Carbon Dioxide 24.0, Anion Gap 6, BUN 21 H, Creatinine 1.61 H, Estim Creat Clear Calc 39.67, Est GFR (MDRD) Af Amer 54 L, Est GFR (MDRD) Non-Af 44 L, BUN/Creatinine Ratio 13.0, Glucose 117 H, Calcium 8.8 09/01/19 14:20: Urine Color Yellow, Urine Clarity Clear, Urine pH 6.0, Ur Specific [place] 1.010, Urine Protein 30 H, Urine Glucose (UA) Normal, Urine Ketones Negative, Urine Occult Blood Negative, Urine Nitrite Negative, Urine Bilirubin Negative, Urine Urobilinogen Normal, Ur Leukocyte Esterase Negative, Urine RBC 0 SEEN, Urine WBC 0 SEEN, Ur Squamous Epith Cells 0 SEEN, Urine Bacteria 0 SEEN, Urine Mucus 0 SEEN 09/01/19 14:20: Urine Creatinine 73.90 09/01/19 14:20: Ur Random Sodium 47 09/01/19 14:20: U Random Total Protein 45.1 H 09/01/19 16:40: Sodium 128 L, Potassium 4.9, Chloride 97 L, Carbon Dioxide 23.0, BUN 19 H, Creatinine 1.49 H, Estim Creat Clear Calc 42.87, Est GFR (MDRD) Af Amer 59 L, Est GFR (MDRD) Non-Af 49 L, BUN/Creatinine Ratio 12.8, Glucose 119 H, Calcium 8.2 L, Phosphorus 2.8, Albumin 3.4 09/01/19 16:52: POC Glucose 112 H 09/01/19 22:16: POC Glucose 106 09/02/19 06:29: POC Glucose 118 H 09/02/19 06:36: WBC 5.0, RBC 3.38 L, Hgb 10.6 L, Hct 30.6 L, MCV 90.5, MCH 31.4, MCHC 34.6, RDW Std Deviation 42.2, RDW Coeff of Shana 12.7, Plt Count 205, MPV 9.8, Immature Gran % (Auto) 0.200, Neut % (Auto) 60.0, Lymph % (Auto) 24.8, [place] % (Auto) 12.0 H, Eos % (Auto) 2.6, Baso % (Auto) 0.4, Absolute Neuts (auto) 3.0, Absolute Lymphs (auto) 1.24, Nucleated RBC % 0 09/02/19 06:36: Sodium 134 L, Potassium 4.8, Chloride 103, Carbon Dioxide 25.0, Anion Gap 6, BUN 18, Creatinine 1.34 H, Estim Creat Clear Calc 47.67, Est GFR (MDRD) Af Amer 67, Est GFR (MDRD) Non-Af 55 L, BUN/Creatinine Ratio 13.4, Glucose 119 H, Calcium 8.9, Total Bilirubin 0.60, AST 22, ALT 23, Alkaline Phosphatase 65, Total Protein 7.5, Albumin 3.6, Globulin 3.9, Albumin/Globulin Ratio 0.9 Clinical Impression(s) from Imaging Studies Chest X-Ray 09/01/19 14:00 IMPRESSION: Hyperinflation. No acute abnormality is seen. Electronically Signed: Jerson Brasher, at 14:20 EST , Service support , Current Medications Acetaminophen (Tylenol) 650 mg PO Q6H PRN PRN PRN Reason: Pain Score 1-3/Temp > 100.7 F Amlodipine Besylate (Norvasc) 5 mg PO DAILY [facility] Aspirin (Aspirin) 325 mg PO DAILY@0800 [facility] Atorvastatin Calcium (Lipitor) 40 mg PO QHS [facility] Last Admin: 09/01/19 22:17 Dose: 40 mg Documented by: Dextrose (D50w Syringe) 0 gm IV X1 PRN; Protocol PRN Reason: Hypoglycemia Glucagon () 1 mg IM .X1 PRN PRN Reason: Hypoglycemia Heparin Sodium (Porcine) (Heparin Na) 5,000 unit SC Q8 [facility] Last Admin: 09/02/19 06:25 Dose: 5,000 unit Documented by: Insulin Human Lispro (Humalog Kwikpen (Bkc)) 0 unit SC ACHS [facility]; Protocol Last Admin: 09/02/19 06:29 Dose: Not Given Documented by: Isosorbide Mononitrate (Imdur) 60 mg PO DAILY [facility] Magnesium Oxide (Mag-Ox 400) 400 mg PO DAILYCM [facility] Nitroglycerin (Nitrostat) 0.4 mg SUBLINGUAL Q5M PRN PRN Reason: CARDIAC/CHEST PAIN Ondansetron HCl (Zofran) 4 mg IV Q8H PRN PRN PRN Reason: NAUSEA/VOMITING Pantoprazole Sodium (Protonix) 40 mg PO DAILY [facility] Sodium Chloride () 10 - 40 ml IV UD PRN PRN Reason: SALINE FLUSH Tamsulosin HCl (Flomax) 0.4 mg PO QHS [facility] Last Admin: 09/01/19 22:17 Dose: 0.4 mg Documented by: Assessment/Plan All Active Problems Hyperkalemia (Acute) Hyponatremia (Acute) 1. Hyponatremia likely due to dehydration. BP stable so doubt due to adrenal insuff. Sodium 125 improved to 134. Await renal US results. Ok to dc home if US unremarkable. F/U in office with me in 1-2 weeks with labs. 2. ABHIJIT on CKD Stage 3. Baseline creatinine appears to be 1.3. Creatinine 1.6 on admit. Off Losartan. 3. Hyperkalemia resolved. Follow low K diet. 4. HTN stable 5. CAD s/p CABG asymptomatic. F/U with cardiology.
[2019-09-02] MEDS: Magnesium Oxide 400 MG Tablet PO (09:22)
[2019-09-02] MEDS: Aspirin 325 MG Tablet PO (09:22)
[2019-09-02] MEDS: Isosorbide Mononitrate 60 MG Tablet PO (09:22)
[2019-09-02] MEDS: amLODIPine 5 MG Tablet PO (09:22)
[2019-09-02] MEDS: Pantoprazole Sodium 40 MG Tablet PO (09:22)
--- NOTE | 2019-09-02 11:36 | CASEMGMT ---
CRISTELA DUPREE assessment: Face to Face with patient for initial transition planning/care coordination assessment. CRISTELA DUPREE introduced self and role at [facility], pt voices understanding and consents to assessment at this time. Pt is sitting up in bed in no distress at this time. Pt is A/Ox4 at this time and answers all questions appropriately at this time. Care providers, pharmacy, and demographics verified at this time. Presentation: Low Na and K per PCP office Admitting dx: Abnormal labs PCP: Fariha Specialists: Chris nephsujey(new c/s); Mina cardio in [place] Preferred Pharmacy: [facility] Insurance: AeR Prescription Benefit: AeR Living Will/HPOA: Pt states has LW/HPOA and is aware that they are not currently on file at [facility] at this time. Pt states that Phylicia Hernandez, , is HPOA. LNOK: Phylicia Hernandez, Living Arrangements: Pt states lives with in 1 story home with 3 steps in and states no concerns at home at this time. Pt states is independent with ADL's. Transportation: Pt states drives self and states no transportation concerns at this time. DME/HHC: Pt states has the following DME but does not use: cane, walker, and grab bars in shower. Pt states no need for any further DME at this time. Pt states no hx of HHC or SNF in the past. Pt states did have a recent fall at home but is currently getting OP therapy at [facility]. Pt states no concerns with going home at time of discharge. Pt is retired. Pt states does not smoke or drink ETOH. Pt states no further concerns/needs at this time. CM to follow for any further discharge planning/needs. Advised pt to ask for CM if any further questions/concerns/needs arise, voices understanding. Pt Goal: Home Plan[place] CRISTELA DUPREE
[2019-09-02] MEDS: Insulin Lispro 100 UNIT/ML INSULN.PEN SC (11:38)
[2019-09-02 11:45] LABS: Bedside Glucose 182 mg/dL (70-110)
--- NOTE | 2019-09-02 13:43 | DCINST_ITS ---
- Discharge Diagnoses Current Active Problems: Current Active and Chronic Problems Hyperkalemia (Acute) Hyponatremia (Acute) You will use the following diet at home:: Regular Your food should be the consistency of: Regular Your liquids should be the consistency of: Regular/Thin Discharge Activity: Return to Normal Activity Call your doctor if you observe: Fever of 101 or Higher, Shortness of breath Allergies/Adverse Reactions: Allergies alprazolam [From Xanax] Adverse Reaction (Verified 09/01/19 12:58) Other EXTREME AGITATION Medications to take at Discharge Amlodipine [Norvasc] 5 mg PO DAILY 08/14/19 Aspirin 325 mg PO DAILY 08/14/19 Atorvastatin Calcium [Lipitor] 40 mg PO QHS 08/14/19 Cinnamon Bark [Cinnamon] 500 mg PO DAILY 08/14/19 Isosorbide Mononitrate [Imdur] 60 mg PO DAILY 08/14/19 Metformin HCl 850 mg PO BID 08/14/19 Metoprolol Tartrate [Lopressor (beta kings)] 50 mg PO BID 08/14/19 [place]-3 Fatty Acids/Fish Oil [[place] 3 Fish Oil Softgel] 1 cap PO BID 08/14/19 Omeprazole 40 mg PO DAILY #30 capsule. 08/14/19 Vitamin A 10,000 unit PO DAILY 08/14/19 Ascorbic Acid [Vitamin C] 1,000 mg PO DAILY 09/01/19 Cyanocobalamin (Vitamin B-12) [Vitamin B-12] 1,000 mcg PO DAILY 09/01/19 Magnesium Oxide [Mag-Ox 400] 400 mg PO DAILY 09/01/19 Tamsulosin HCl [Flomax] 0.4 mg PO QHS 09/01/19 Turmeric 400 mg PO DAILY 09/01/19 Vitamin E 400 unit PO DAILY 09/01/19 Orders to be completed after discharge: Basic Metabolic Profile (BMP) Time Frame: 1 Week, Facility: [facility], Location: Laboratory Primary Care Physician: Chris Fried MD [Primary Care Provider] - Within 1 Week Test Results: Test results from this visit will be discussed in further detail at your follow- up appointment, if applicable. Proposed Discharge Date: 09/02/19
--- NOTE | 2019-09-02 13:46 | PCM.DC.SUM ---
Discharge Date and Diagnosis - Problem List Patient Problems: Active and Suspected Problems Hyperkalemia (Acute) Hyponatremia (Acute) Date of Admission: 09/01/19 Date of Discharge: 09/02/19 - Primary Discharge Diagnosis Active and Suspected Problems Hyperkalemia (Acute) Hyponatremia (Acute) - Secondary Discharge Diagnosis Chronic Problems Atherosclerotic coronary vascular disease (Chronic) History of hypertension (Chronic) History of type 2 diabetes mellitus (Chronic) History of BPH (Chronic) History of gastroesophageal reflux (GERD) (Chronic) Hospital Course and Treatment Imaging Results: 09/02/19 05:55 Kidney and Bladder [US] AM (NON MEDS) Clinical Impression(s) from Imaging Studies Chest X-Ray 09/01/19 14:00 IMPRESSION: Hyperinflation. No acute abnormality is seen. Electronically Signed: Jerson Brasher, at 14:20 EST , Service support , Renal Ultrasound 09/02/19 05:55 IMPRESSION: Normal ultrasound of the kidneys and urinary bladder. Electronically Signed: Jerson Brasher, at 13:11 EST , Service support , Roseanna Perez: nephrology Operations: None Procedures: None Summary of Care Provided: The patient is a 79 year old M with abnormal labs. Patient had lab work that was abnormal sent to the emergency room. In the emergency room, patient sodium was 125, potassium was 6.1 and not hemolyzed and creatinine was 1.61. Patient did receive IV fluids and sodium, potassium and kidney function have all improved. Patient was on losartan which will be held. Patient will have follow-up BMP in a week's time. Patient was seen by nephrology and a ultrasound was performed. Ultrasound of the kidneys was unremarkable. Patient is advised to hold off on losartan. [] Patient Problems: Active and Suspected Problems Hyperkalemia (Acute) Hyponatremia (Acute) - Physical Exam Vitals/I&O's: Vital Signs Temp Pulse Resp BP Pulse Ox 36.6 C 75 18 142/69 H 97 09/02/19 08:00 09/02/19 08:00 09/02/19 08:00 09/02/19 08:00 09/02/19 08:40 Oxygen Delivery Method Room Air Weight: 80.1 kg Body Mass Index (BMI) 25.9 Intake and Output for Last 24 Hours 08/31/19 09/01/19 09/02/19 23:59 23:59 23:59 Intake Total 1240 / 1480 1540 / 1540 Output Total 2300 / 2300 Balance 1240 / 80 -760 / -760 General: Alert, Cooperative, No apparent distress HEENT: Atraumatic, Normocephalic Oral: Moist Mucosa, No Gingival or Mucosal Lesions/ Ulcerations Neck: No Nodes, Trachea Midline Lungs: Clear to auscultation, Normal air movement, No rhonchi, No wheeze, No rales Cardiovascular: Regular rate, Regular Rhythm, Normal S1, Normal S2 Abdomen: Bowel Sounds Present, Soft, Non Tender, Non-Distended, No Hepato-splenomegaly Psych/Mental Status: Normal Affect, Appropriate Laboratory Results 09/01/19 13:30: Sodium Cancelled, Potassium Cancelled, Chloride Cancelled, Carbon Dioxide Cancelled, Anion Gap Cancelled, BUN Cancelled, Creatinine Cancelled, Estim Creat Clear Calc Cancelled, Est GFR (MDRD) Af Amer Cancelled, Est GFR (MDRD) Non-Af Cancelled, BUN/Creatinine Ratio Cancelled, Glucose Cancelled, Calcium Cancelled 09/01/19 14:05: Sodium 125 L, Potassium 6.1 H*, Chloride 95 L, Carbon Dioxide 24.0, Anion Gap 6, BUN 21 H, Creatinine 1.61 H, Estim Creat Clear Calc 39.67, Est GFR (MDRD) Af Amer 54 L, Est GFR (MDRD) Non-Af 44 L, BUN/Creatinine Ratio 13.0, Glucose 117 H, Calcium 8.8 09/01/19 14:20: Urine Color Yellow, Urine Clarity Clear, Urine pH 6.0, Ur Specific [place] 1.010, Urine Protein 30 H, Urine Glucose (UA) Normal, Urine Ketones Negative, Urine Occult Blood Negative, Urine Nitrite Negative, Urine Bilirubin Negative, Urine Urobilinogen Normal, Ur Leukocyte Esterase Negative, Urine RBC 0 SEEN, Urine WBC 0 SEEN, Ur Squamous Epith Cells 0 SEEN, Urine Bacteria 0 SEEN, Urine Mucus 0 SEEN 09/01/19 14:20: Urine Creatinine 73.90 09/01/19 14:20: Ur Random Sodium 47 09/01/19 14:20: U Random Total Protein 45.1 H 09/01/19 16:40: Sodium 128 L, Potassium 4.9, Chloride 97 L, Carbon Dioxide 23.0, BUN 19 H, Creatinine 1.49 H, Estim Creat Clear Calc 42.87, Est GFR (MDRD) Af Amer 59 L, Est GFR (MDRD) Non-Af 49 L, BUN/Creatinine Ratio 12.8, Glucose 119 H, Calcium 8.2 L, Phosphorus 2.8, Albumin 3.4 09/01/19 16:52: POC Glucose 112 H 09/01/19 22:16: POC Glucose 106 09/02/19 06:29: POC Glucose 118 H 09/02/19 06:36: WBC 5.0, RBC 3.38 L, Hgb 10.6 L, Hct 30.6 L, MCV 90.5, MCH 31.4, MCHC 34.6, RDW Std Deviation 42.2, RDW Coeff of Shana 12.7, Plt Count 205, MPV 9.8, Immature Gran % (Auto) 0.200, Neut % (Auto) 60.0, Lymph % (Auto) 24.8, [place] % (Auto) 12.0 H, Eos % (Auto) 2.6, Baso % (Auto) 0.4, Absolute Neuts (auto) 3.0, Absolute Lymphs (auto) 1.24, Nucleated RBC % 0 09/02/19 06:36: Sodium 134 L, Potassium 4.8, Chloride 103, Carbon Dioxide 25.0, Anion Gap 6, BUN 18, Creatinine 1.34 H, Estim Creat Clear Calc 47.67, Est GFR (MDRD) Af Amer 67, Est GFR (MDRD) Non-Af 55 L, BUN/Creatinine Ratio 13.4, Glucose 119 H, Calcium 8.9, Total Bilirubin 0.60, AST 22, ALT 23, Alkaline Phosphatase 65, Total Protein 7.5, Albumin 3.6, Globulin 3.9, Albumin/Globulin Ratio 0.9 09/02/19 11:08: POC Glucose 182 H Current Medications Acetaminophen (Tylenol) 650 mg PO Q6H PRN PRN PRN Reason: Pain Score 1-3/Temp > 100.7 F Amlodipine Besylate (Norvasc) 5 mg PO DAILY [facility] Last Admin: 09/02/19 09:22 Dose: 5 mg Documented by: Aspirin (Aspirin) 325 mg PO DAILY@0800 [facility] Last Admin: 09/02/19 09:22 Dose: 325 mg Documented by: Atorvastatin Calcium (Lipitor) 40 mg PO QHS [facility] Last Admin: 09/01/19 22:17 Dose: 40 mg Documented by: Glucagon () 1 mg IM .X1 PRN PRN Reason: Hypoglycemia Heparin Sodium (Porcine) (Heparin Na) 5,000 unit SC Q8 [facility] Last Admin: 09/02/19 06:25 Dose: 5,000 unit Documented by: Dextrose (Dextrose 10%-Water) 250 mls @ 999 mls/hr IV X1 PRN; Protocol PRN Reason: HYPOGLYCEMIA Insulin Human Lispro (Humalog Kwikpen (Bkc)) 0 unit SC ACHS [facility]; Protocol Last Admin: 09/02/19 11:38 Dose: 1 u Documented by: Isosorbide Mononitrate (Imdur) 60 mg PO DAILY [facility] Last Admin: 09/02/19 09:22 Dose: 60 mg Documented by: [facility] Last Admin: 09/02/19 09:22 Dose: 400 mg Documented by: Nitroglycerin (Nitrostat) 0.4 mg SUBLINGUAL Q5M PRN PRN Reason: CARDIAC/CHEST PAIN Ondansetron HCl (Zofran) 4 mg IV Q8H PRN PRN PRN Reason: NAUSEA/VOMITING Pantoprazole Sodium (Protonix) 40 mg PO DAILY [facility] Last Admin: 09/02/19 09:22 Dose: 40 mg Documented by: Sodium Chloride () 10 - 40 ml IV UD PRN PRN Reason: SALINE FLUSH Tamsulosin HCl (Flomax) 0.4 mg PO QHS [facility] Last Admin: 09/01/19 22:17 Dose: 0.4 mg Documented by: Discharge Diet: 1800 Calorie Control Diet Discharge Activity: Return to Normal Activity Call your doctor if you observe: Fever of 101 or Higher, Shortness of breath Home Medications: Medications to take at Discharge Amlodipine [Norvasc] 5 mg PO DAILY 08/14/19 Aspirin 325 mg PO DAILY 08/14/19 Atorvastatin Calcium [Lipitor] 40 mg PO QHS 08/14/19 Cinnamon Bark [Cinnamon] 500 mg PO DAILY 08/14/19 Isosorbide Mononitrate [Imdur] 60 mg PO DAILY 08/14/19 Metformin HCl 850 mg PO BID 08/14/19 Metoprolol Tartrate [Lopressor (beta kings)] 50 mg PO BID 08/14/19 [place]-3 Fatty Acids/Fish Oil [[place] 3 Fish Oil Softgel] 1 cap PO BID 08/14/19 Omeprazole 40 mg PO DAILY #30 capsule.dr 08/14/19 Vitamin A 10,000 unit PO DAILY 08/14/19 Ascorbic Acid [Vitamin C] 1,000 mg PO DAILY 09/01/19 Cyanocobalamin (Vitamin B-12) [Vitamin B-12] 1,000 mcg PO DAILY 09/01/19 Magnesium Oxide [Mag-Ox 400] 400 mg PO DAILY 09/01/19 Tamsulosin HCl [Flomax] 0.4 mg PO QHS 09/01/19 Turmeric 400 mg PO DAILY 09/01/19 Vitamin E 400 unit PO DAILY 09/01/19 Other Amb Orders: Basic Metabolic Profile (BMP) Time Frame: 1 Week, Facility: [facility], Location: Laboratory Primary Care Physician: Chris Fried MD [Primary Care Provider] - Within 1 Week Disposition: Home Minutes spent on discharge:: 32 Patient Condition:: Good Medical Necessity - Tobacco Use Smoking Status: Never smoker Tobacco Use: Non-smoker Meaningful Use Info Meaningful Use Diagnoses (Choose all that apply): None applicable Code Visit OBSV E&M: 23669 Observation care discharge
== END 2019-09-02 15:00 | disposition home or self-care (01) | DRG 683 ==
LOC: ED 13:14 → PCU 15:41
PROVIDERS: Internal Medicine Nephrology; Admitting Provider Internal Medicine; Emergency Provider Emergency Medicine; Family Provider Family Medicine; PCP Family Medicine; Referring Provider Internal Medicine
DX: N17.9 Acute kidney failure, unspecified (principal); E87.1 Hypo-osmolality and hyponatremia; E87.5 Hyperkalemia; E78.5 Hyperlipidemia, unspecified; I25.10 Atherosclerotic heart disease of native coronary artery without angina pectoris; Z95.5 Presence of coronary angioplasty implant and graft; Z79.82 Long term (current) use of aspirin; N18.3 Chronic kidney disease, stage 3 (moderate); E11.22 Type 2 diabetes mellitus with diabetic chronic kidney disease; Z79.84 Long term (current) use of oral hypoglycemic drugs; I12.9 Hypertensive chronic kidney disease with stage 1 through stage 4 chronic kidney disease, or unspecified chronic kidney disease
CPT/HCPCS: 36415; 71046; 76770; 80048; 80053; 80069; 81001; 82570; 82962; 84156; 84300; 85025; 93005; 97802; 99251; 99285; J7030; J7040; A4216; G0463

== ENCOUNTER 2019-10-16 16:52 | Emergency (ER) | payer MEDICARE, SELFPAY ==
[2019-09-01 16:30] VITALS: BMI 25.9
[2019-10-16 16:53] VITALS: BP 144/55; PULSE 85; RESP 16; TEMP 37.2; O2SAT 96; BMI 25.9
--- NOTE | 2019-10-16 18:04 | ED.DCSUM_ITS ---
History of Present Illness Chief Complaint: Complaint Informant: Patient Onset: Today Context: Gradual Onset Timing: Intermittent Narrative: Patient is a 79-year-old male with history of BPH and CKD presenting with di fficulty urinating. Patient states that he will feel like he needs to urinate but cannot get much urine out. His symptoms started today. He sometimes has abdominal pain with it but does not have any currently. He states he has had normal bowel movements today. He denies any dysuria or hematuria. He was seen by his PCP today who ordered a urine sample. He gave a urine sample to the lab but does not know what the results were. I am unable to see any laboratory results in the computer at this time. Patient denies any other complaints at this time. He is currently asymptomatic. Past Medical History - Allergies and Home Meds Allergies/Adverse Reactions: Allergies alprazolam [From Xanax] Adverse Reaction (Verified 10/16/19 16:52) Other EXTREME AGITATION Primary Care Physician: Chris Fried MD [Primary Care Provider] - Past Medical History: - - BPH, hypertension, CKD Surgical History: coronary bypass surgery, - - s/p cardiac stenst Smoking Status: Never smoker Review of Systems General: Denies: Chills, Fever, Sweats Eyes: Denies: Visual changes - bilaterally, Diplopia ENT: Denies: Rhinorrhea, Sore throat Cardiovascular: Denies: Chest pain, Palpitations Respiratory: Denies: Dyspnea, Cough, Dyspnea on exertion Gastrointestinal: Denies: Abdominal pain, Nausea, Vomiting, Diarrhea, Melena, Hematochezia Genitourinary: Reports: - - Hesitancy. Denies: Dysuria, Hematuria, Frequency Musculoskeletal: Denies: Back pain, Extremity Pain Skin: Denies: Rash, Wounds Neurological: Denies: Headache, Weakness, Numbness Physical Exam Vital Signs/Narrative: Vital Signs Temp Pulse Resp BP Pulse Ox 10/16/19 16:53 99.0 F 85 16 144/55 H 96 Inital Vital Signs reviewed: Yes General: Well nourished, Well developed, No Acute Distress Head: Normocephalic, Atraumatic Eyes: Perrl, EOMI ENT: Moist mucous membranes, No rhinorrhea Neck: Supple, Nontender Cardiovascular: Regular rate, Regular rhythm, No murmurs Respiratory: No distress, CTA bilaterally, Chest nontender Abdomen: Soft, Nontender, Nondistended, Normal bowel sounds, - - No distended bladder palpated. Negative for: No masses, Guarding, Rebound tenderness Rectal: Deferred Back: Nontender, Normal Inspection Extremities: Nontender, No edema Skin: Normal color, No rash Neurological: Alert, Oriented x3, Cranial nerves II-XII grossly intact, Normal Strength, Normal Sensation Psychological: Normal affect, Normal Mood Diagnostic/Tx/Re-eval Laboratory Data 10/16/19 10/16/19 10/16/19 18:20 18:20 18:40 WBC 3.6 L RBC 3.42 L Hgb 10.5 L Hct 31.3 L MCV 91.5 MCH 30.7 MCHC 33.5 RDW Std Deviation 44.1 H RDW Coeff of Shana 13.1 Plt Count 175 MPV 10.2 Immature Gran % (Auto) 0.600 Neut % (Auto) 62.3 Lymph % (Auto) 17.8 L [place] % (Auto) 18.1 H Eos % (Auto) 0.6 Baso % (Auto) 0.6 Absolute Neuts (auto) 2.3 Absolute Lymphs (auto) 0.64 L Nucleated RBC % 0 Sodium 127 L Potassium 4.3 Chloride 96 L Carbon Dioxide 24.0 Anion Gap 7 BUN 24 H Creatinine 1.80 H Estim Creat Clear Calc 35.49 Est GFR (MDRD) Af Amer 47 L Est GFR (MDRD) Non-Af 39 L BUN/Creatinine Ratio 13.3 Glucose 105 Calcium 8.5 Urine Color Yellow Urine Clarity Clear Urine pH 5.0 Ur Specific [place] 1.015 Urine Protein 100 H Urine Glucose (UA) Normal Urine Ketones Negative Urine Occult Blood 10 H Urine Nitrite Negative Urine Bilirubin Negative Urine Urobilinogen Normal Ur Leukocyte Esterase Negative Urine RBC 0 SEEN Urine WBC 0 SEEN Ur Squamous Epith Cells 0 SEEN Urine Bacteria 0 SEEN Urine Mucus 0 SEEN - Medical Decision Making Patient is evaluated for hesitancy associated urination. He appears nontoxic in no acute distress. He is not have a physical exam or history consistent with acute urinary retention. He does have a history of BPH. Urinalysis is not consistent with infection. A CBC and BMP are obtained. CBC shows a leukopenia that is mild. This does seem to be slightly worsening over time. He does have a mild anemia but this is at his baseline. In addition patient does have hyponatremia at 127. Patient's creatinine is mildly elevated but at his baseline. He is given a liter of IV fluids for his hyponatremia. I think he is safe to follow-up outpatient I did touch base with PCP on-call, Dr. Myers. He is aware of the patient's hyponatremia and is agreeable to follow-up on Saturday. Patient is counseled on signs symptoms require return the emergency room. He verbalizes agreement understand this plan. He is discharged home in stable condition. ED Disposition - Plan for ED Patient: Disposition: Home or Assisted Living Diagnosis: Hyponatremia, Urinary hesitancy Instructions: Hyponatremia Referrals: Chris Fried MD [Primary Care Provider] - Additional Instructions: You do not have a urinary tract infection. You do have some urinary hesitancy but you do not have acute urinary retention. You do not require a Jerome catheter at this time. Your sodium was low today. You need to follow-up with the office on Saturday for reevaluation of your hyponatremia (low sodium). You were given IV fluids in the emergency room for this. Please return the emergency room if you have any worsening symptoms.
[2019-10-16 18:31] LABS: Absolute Lymphocyte Count 0.64 X10^3/uL (0.83-4.51); Absolute Neutrophil Count 2.3 X10^3/uL (2.0-7.7); Basophil# 0.02 X10^3/uL; Basophil% 0.6 % (0-1); Eosinophil# 0.02 X10^3/uL; Eosinophils% 0.6 % (0-5); Hematocrit 31.3 % (40-54); Hemoglobin 10.5 g/dL (13.0-16.5); Lymphocyte # 0.64 X10^3/ul (4.0); Lymphocyte % 17.8 % (19-41); Mean Corp Hgb Conc 33.5 g/dL (32-36); Mean Corpuscular Hgb 30.7 pg (27.0-32.0); Mean Corpuscular Volume 91.5 fL (80-94); Mean Platelet Vol. 10.2 fl (6.2-12.0); Monocyte# 0.65 X10^3/uL; Monocyte% 18.1 % (0-10); NRBC Flagged by Analyzer 0 % (0-5); Neutrophil # 2.25 X10^3/uL (2.7-7.7); Neutrophil % 62.3 % (47-70); Platelet Count 175 K/mm3 (150-450); RBC Distribution Width CV 13.1 % (11.6-14.6); RBC Distribution Width SD 44.1 fl (35.1-43.9); Red Blood Count 3.42 M/mm3 (4.6-6.2); White Blood Count 3.6 K/mm3 (4.4-11.0)
[2019-10-16 18:44] LABS: Bacteria 0 SEEN /hpf (None Seen); Mucous, Urine 0 SEEN /hpf (<or=2+); Red Blood Cells-Urine 0 SEEN /hpf (0-5); Squamous Epithelial Cells - UA 0 SEEN /hpf (0-5); White Blood Cells 0 SEEN /hpf (0-5)
[2019-10-16 18:50] LABS: Anion Gap 7 (5-15); BUN 24 mg/dL (7-18); BUN/Creat Ratio 13.3 RATIO (10-20); Calcium,Total 8.5 mg/dL (8.5-10.1); Chloride 96 mmol/L (98-107); EST Glomerular Filtration Rate 39 mL/min (>60); Est Glom Filt Rate - Afr Amer 47 mL/min (>60); Estimated Creatinine Clearance 35.49 ml/min; Glucose 105 mg/dL (74-106); Potassium 4.3 mmol/L (3.5-5.1); Sodium Level 127 mmol/L (136-145)
[2019-10-16 18:54] LABS: Color, Urine Yellow (Yellow); Glucose, Dipstick Normal (Normal); Ketone-Dipstick Negative (Negative); Leukocyte Esterase-Dipstick Negative /ul (Negative); Nitrite-Dipstick Negative (Negative); Occult Blood-Urine 10 /ul (Negative); Protein-Dipstick 100 mg/dl (Negative); Specific Gravity, Urine 1.015 (1.002-1.030); Urine Bilirubin Dipstick Negative (Negative); Urine Clarity Clear (Clear); Urine Urobilinogen Normal (Normal)
[2019-10-16] MEDS: 0.9% Normal Saline 1,000 ML 999 ML IV (19:43)
[2019-10-16 20:30] VITALS: BP 138/74; PULSE 77; RESP 16; TEMP 37.6; O2SAT 94
== END 2019-10-16 21:17 | disposition home or self-care (01) ==
PROVIDERS: Emergency Provider Emergency Medicine; PCP Family Medicine; Referring Provider Family Medicine
DX: E87.1 Hypo-osmolality and hyponatremia (principal); N40.1 Benign prostatic hyperplasia with lower urinary tract symptoms; R39.11 Hesitancy of micturition; D64.9 Anemia, unspecified; I12.9 Hypertensive chronic kidney disease with stage 1 through stage 4 chronic kidney disease, or unspecified chronic kidney disease; N18.9 Chronic kidney disease, unspecified; Z95.1 Presence of aortocoronary bypass graft; Z79.82 Long term (current) use of aspirin; Z79.899 Other long term (current) drug therapy
CPT/HCPCS: 80048; 81001; 85025; 96360; 99283; J7030; A4216

== ENCOUNTER 2019-11-16 09:30 | Outpatient (RCR) | payer MEDICARE, SELFPAY ==
[2019-09-01 16:30] VITALS: BMI 25.9
--- NOTE | 2019-09-07 07:47 | HP.PTEVAL ---
Patient's Visit Information DERRICK BRADSHAW is a 79 year old M referred to Physical Therapy by Chris Fried MD with a diagnosis of Unsteady gait. Date of Evaluation: 09/07/19 Physical Therapist: Terrance Solis, ELISABET, OCS, CSCS - Visit Plan Frequency: 2x /Week Duration: 4-6 Weeks Plan: 2x/week for 4-6 weeks, please teach ankle strength and balance vestibular and forward weight shift to progress to via HEP(foam, step adn recover, FW weight shift and functional balance with ankle TB. - Subjective Findings: Fell a couple weeks ago at night and swelled up R leg. It has healed but doc wants him to wrok on balance. Falls because he just loses his balance, sometimes doesn't lift feet high enough. Working at [employer] to strengthen legs. Uses a cane sometimes,i should use it more Numbness is not present but has neuropathy in feet without a lot of sensitivity. Has DM. No spinning dizzyness. Sleeps OK most of the time. Not employed. 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 Hasn't done that in a while. Was in therapy in the past for sciatic pain. No pain. Basic ADLs are getting done but not a lot of energy. Doing weight machines and TM at [employer], leg lifts. - Objective Walks normal albeit slow, some swaying in stance. Steps reciprocal with one rail today. R LE weak vs L particularly in the ankle DF at 4- vs 4 on L. knee ext adn flexion 4+ L and 4 R. hips 4 B. Coordination to reciproacl toe and heel tap is fair. able to walk on toes strength king. Sensation at deficit in R LE today past the knee to gross light touch moderately to maximally, L leg is mostly in foot. reflexes 0/3 B achilles and 1/3 B patella. Flexibility is poor in B HS nad gastroc making neutral Df on R side difficult with knee straight. - Balance Scores Functional Gait Assessment Score: 21 % Disability: 30.0000 CATSIB Score (Max score 120 seconds): 93 - Goals Goal 1:: FGA to diminish fall risk Goal Time Frame: 4-6 Weeks Goal 2:: I approp HEP to minimize future problems Goal Time Frame: 4-6 Weeks Goal 3:: Pt feel 50% better in balance and mobility. Goal Time Frame: 4-6 Weeks - Rehabilitation Potential Physical Therapy Diagnosis: Unsteady gait from neuropathy likely. Rehabilitation Potential: Good - Anticipated Interventions Patient/Client Instruction: Educate patient on: Condition, Plan of Care For the Purpose of:: To improve muscle performance and motor function, To improve ability of physical actions for home/community/work/leisure Therapeutic Exercise to Include: Strength training, Balance training, Flexibilty training, Gait and locomotor training For the Purpose of:: To improve muscle performance and motor function, To increase tolerance to activity/condition/position, To improve ability of physical actions for home/community/work/leisure Thank you for the opportunity to evaluate your patient. For Medicare and Medicare HMO plans, please review the plan of care and approve it. It will need to be FAXED BACK to us at [phone] for Medicare purposes. For Medicare only, by signing this I certify the plan of care. Please let me know if there are questions or concerns regarding this plan of care. Physician Signature: Date:
[2019-09-24 17:53] LABS: Albumin, Serum 3.7 g/dL (3.2-5.0); BUN 25 mg/dL (7-18); BUN/Creat Ratio 13.8 RATIO (10-20); Calcium,Total 8.5 mg/dL (8.5-10.1); Chloride 105 mmol/L (98-107); Creatinine, Serum 1.81 mg/dL (0.70-1.30); EST Glomerular Filtration Rate 39 mL/min (>60); Est Glom Filt Rate - Afr Amer 47 mL/min (>60); Glucose 133 mg/dL (74-106); Phosphorus 3.1 mg/dL (2.5-4.9); Potassium 4.5 mmol/L (3.5-5.1); Sodium Level 135 mmol/L (136-145)
--- NOTE | 2019-10-08 10:42 | HP.PTREVAL ---
Chris Fried MD, It has been my pleasure to treat DERRICK BRADSHAW over the last 8 visits for Unsteady gait. Please see the progress note below for an update on the physical therapy plan of care! Subjective: Stability is much better. getting up out of bed still needs to wait for a second but then very stable. Objective/Function: Walking with moving head and VOR can be a challenge. Better otherwise improving 3 points on FGA. Good progress adn still some room to get better with functional gait balance. Plan Plan: weekly x 4 for gait balance with head movements, VOR, bending, turning, steps. This is to compliment his I gym workout in [facility] for balance and strength. Goals Goal 1:: FGA to diminish fall risk Goal Time Frame: 4-6 Weeks Goal Progress: Goal Met Goal 2:: I approp HEP to minimize future problems Goal Time Frame: 4-6 Weeks Goal Progress: Goal Met Goal 3:: Pt feel 50% better in balance and mobility. Goal Time Frame: 4-6 Weeks Goal Progress: Goal Met Goal 4:: FGa to diminish fall risk Goal Time Frame: 2-4 Weeks Goal Progress: NEW GOAL Anticipated Interventions Patient/Client Instruction: Educate patient on: Condition, Plan of Care For the Purpose of:: To improve muscle performance and motor function, To improve ability of physical actions for home/community/work/leisure Therapeutic Exercise to Include: Strength training, Balance training, Flexibilty training, Gait and locomotor training For the Purpose of:: To improve muscle performance and motor function, To increase tolerance to activity/condition/position, To improve ability of physical actions for home/community/work/leisure Please do not hesitate to contact me at [phone] by phone or if you have questions or concerns regarding this new plan of care! Sincerely, Terrance Solis, DPT, OCS, CSCS
--- NOTE | 2019-11-16 10:13 | HP.PTDCSUM ---
HP - PT D/C Summary It has been my pleasure to treat DERRICK BRADSHAW under orders from Chris Fried MD, for the diagnosis of Unsteady gait for a total of 12 visit(s). Discharge Date: 11/16/19 Please see the following information for a summary of their discharge status. - Subjective Subjective: Getting better. Going to fitness center at [place]. Goes there 3x/week. Balance is pretty good. No problems with balance outside of exercises. Core focus has been helpful. - Overall Improvement % Improvement: 75 - Objective Objective/Function: FGA is +8 overall and higher than expected for his age. Doing very well with gait. Feeling safer adn ready to arya on hos own. - Goals Goal 1:: FGA to diminish fall risk Goal Progress: Goal Met Goal 2:: I approp HEP to minimize future problems Goal Progress: Goal Met Goal 3:: Pt feel 50% better in balance and mobility. Goal Progress: Goal Met Goal 4:: FGa to diminish fall risk Goal Progress: Goal Met - Plan Plan: d/c - D/C Information If there are questions or concerns regarding this patient's physical therapy, please feel free to call me at [phone]. Thank you for the referral of this patient. Sincerely, Terrance Solis, DPT, OCS, CSCS
== END 2019-11-16 19:00 | disposition home or self-care (01) ==
LOC: PT 09:30
PROVIDERS: Internal Medicine Nephrology; Family Provider Family Medicine; PCP Family Medicine; Referring Provider Family Medicine; Visit Provider Family Medicine
DX: R26.81 Unsteadiness on feet (principal)
CPT/HCPCS: 36415; 80069; 97110; 97116; 97162; 97164; 97530

== ENCOUNTER → 2020-02-11 11:16 | Outpatient (CLI) | payer MEDICARE, SELFPAY ==
[2020-02-11 13:07] LABS: Albumin, Serum 3.8 g/dL (3.2-5.0); BUN 25 mg/dL (7-18); Calcium,Total 9.1 mg/dL (8.5-10.1); Chloride 101 mmol/L (98-107); Creatinine, Serum 1.78 mg/dL (0.70-1.30); EST Glomerular Filtration Rate 40 mL/min (>60); Est Glom Filt Rate - Afr Amer 48 mL/min (>60); Glucose 140 mg/dL (74-106); Phosphorus 3.9 mg/dL (2.5-4.9); Potassium 4.7 mmol/L (3.5-5.1); Sodium Level 134 mmol/L (136-145)
== END ==
PROVIDERS: PCP Family Medicine; Visit Provider Internal Medicine Nephrology
DX: E87.1 Hypo-osmolality and hyponatremia (principal)
CPT/HCPCS: 36415; 80069; 82088; 82533

== ENCOUNTER → 2020-03-21 10:01 | Outpatient (CLI) | payer MEDICARE, SELFPAY ==
[2020-03-21 11:06] LABS: Albumin, Serum 3.3 g/dL (3.2-5.0); BUN 21 mg/dL (7-18); BUN/Creat Ratio 13.9 RATIO (10-20); Calcium,Total 8.6 mg/dL (8.5-10.1); Chloride 103 mmol/L (98-107); Creatinine, Serum 1.51 mg/dL (0.70-1.30); EST Glomerular Filtration Rate 48 mL/min (>60); Est Glom Filt Rate - Afr Amer 58 mL/min (>60); Glucose 165 mg/dL (74-106); Phosphorus 2.7 mg/dL (2.5-4.9); Potassium 4.1 mmol/L (3.5-5.1); Sodium Level 137 mmol/L (136-145)
== END ==
PROVIDERS: PCP Family Medicine; Referring Provider Internal Medicine Nephrology; Visit Provider Internal Medicine Nephrology
DX: N18.3 Chronic kidney disease, stage 3 (moderate) (principal)
CPT/HCPCS: 36415; 80069

== ENCOUNTER → 2020-08-03 10:26 | Outpatient (CLI) | payer MEDICARE, SELFPAY ==
[2020-08-03 12:42] LABS: Albumin, Serum 3.6 g/dL (3.2-5.0); BUN 21 mg/dL (7-18); BUN/Creat Ratio 13.1 RATIO (10-20); Calcium,Total 8.5 mg/dL (8.5-10.1); Chloride 103 mmol/L (98-107); EST Glomerular Filtration Rate 45 mL/min (>60); Est Glom Filt Rate - Afr Amer 54 mL/min (>60); Glucose 145 mg/dL (74-106); Phosphorus 2.7 mg/dL (2.5-4.9); Potassium 4.1 mmol/L (3.5-5.1); Sodium Level 137 mmol/L (136-145)
== END ==
PROVIDERS: PCP Family Medicine; Visit Provider Internal Medicine Nephrology
DX: E87.1 Hypo-osmolality and hyponatremia (principal)
CPT/HCPCS: 36415; 80069

== ENCOUNTER → 2020-08-10 09:21 | Outpatient (CLI) | payer MEDICARE, SELFPAY ==
[2020-08-10 12:33] LABS: PTHIN 206.5 pg/mL (18.4-80.1)
== END ==
PROVIDERS: PCP Family Medicine; Visit Provider Internal Medicine Nephrology
DX: N18.32 Chronic kidney disease, stage 3b (principal)
CPT/HCPCS: 36415; 83970

== ENCOUNTER → 2021-02-08 12:04 | Outpatient (CLI) | payer MEDICARE, SELFPAY ==
[2021-02-08 13:12] LABS: Albumin, Serum 3.2 g/dL (3.2-5.0); BUN 19 mg/dL (7-18); BUN/Creat Ratio 11.7 RATIO (10-20); Calcium,Total 8.1 mg/dL (8.5-10.1); Chloride 104 mmol/L (98-107); Creatinine, Serum 1.62 mg/dL (0.70-1.30); EST Glomerular Filtration Rate 44 mL/min (>60); Est Glom Filt Rate - Afr Amer 53 mL/min (>60); Glucose 136 mg/dL (74-106); Phosphorus 2.7 mg/dL (2.5-4.9); Potassium 3.5 mmol/L (3.5-5.1); Sodium Level 140 mmol/L (136-145)
[2021-02-08 13:23] LABS: PTHIN 153.5 pg/mL (18.4-80.1)
== END ==
PROVIDERS: PCP Family Medicine; Referring Provider Internal Medicine Nephrology; Visit Provider Internal Medicine Nephrology
DX: E87.1 Hypo-osmolality and hyponatremia (principal); N18.32 Chronic kidney disease, stage 3b
CPT/HCPCS: 36415; 80069; 83970

== ENCOUNTER 2021-12-01 08:12 | Emergency (ER) | payer MEDICARE, SELFPAY ==
[2021-12-01 08:15] VITALS: BP 186/67; PULSE 55; RESP 18; TEMP 36.6; O2SAT 97; BMI 26.5
--- NOTE | 2021-12-01 08:49 | EKG12_ITS ---
Test Reason : CHEST TIGHTNESS Blood Pressure : / mmHG Vent. Rate : 054 BPM Atrial Rate : 054 BPM P-R Int : 182 ms QRS Dur : 096 ms QT Int : 470 ms P-R-T Axes : 068 035 038 degrees QTc Int : 445 ms Sinus bradycardia Left ventricular hypertrophy with repolarization abnormality Abnormal ECG Confirmed by NAVEEN MCCABE, MINDY ([id number]), publications editor HAKAN NOWAK ([id number]) on 12/04/2021 11:11:42 AM Referred By: CHEO Confirmed By:MINDY HODGE MD
--- NOTE | 2021-12-01 08:57 | RAD_ITS ---
STUDY: X-RAY CHEST REASON FOR EXAM: Male, 81 years old. Chest pain TECHNIQUE: Single AP portable view of the chest. COMPARISON: Comparison is made with prior study dated 09/01/2019. FINDINGS: EKG electrodes are seen. Hyperinflation. The lungs are clear. There is no demonstrated pleural abnormality. Sternal cerclage wires and vascular clips are present from a prior sternotomy and coronary artery bypass graft procedure (CABG). Normal mediastinum and myles. Normal visualized pulmonary arteries. There is atherosclerotic calcification of the aortic arch with tortuosity. Normal visualized thoracic spine. Healed left rib fractures. Calcific tendinitis of the right shoulder. There is no demonstrated abnormality of the visualized soft tissue structures of the upper abdomen. RAD/Chest 1 View (Portable) IMPRESSION: Hyperinflation. The lungs are clear. Calcific tendinitis of the right shoulder. Healed left rib fractures. Electronically Signed: Jerson Brasher MD at 9:21 EST ,
--- NOTE | 2021-12-01 08:59 | ED.VIS.CHEST ---
HPI History of Present Illness Chief Complaint: Chest Pain Informant: patient Onset/Context/Timing Onset: Today Timing: Intermittent Quality: Positive for Dull Current Severity: Mild Maximum Severity: Mild Worsened By: Nothing Relieved By: Nothing Associated Symptoms: Negative for Nausea, Vomiting, Diaphoresis, Dyspnea, Cough, Fever, Lightheadedness, Acid Reflux and Palpitations Narrative Narrative: 81-year-old male history of CAD, diabetes, reflux, stage III chronic kidney disease. Patient underwent double bypass surgery 1991 and a cardiac stent in 2001. He is on aspirin only. States he been under a lot of stress because his was diagnosed with dementia. He is not sure that is what is causing this or if it something else. He does walk on a treadmill at least 10 minutes twice a week and said that has not been any problem. He has had no exertional chest pain or shortness of breath recently. He states he has tingling in both arms but no radiation of pain to his arm neck or back. No dyspnea. Prior Similar Symptoms: Yes Recent Illness/Hospitalization: No CVD Risk Factors: Positive for Hypertension and Diabetes; Negative for Smoking PE Risk Factors: Negative for Recent Travel/Surgery, Recent Immobilization, Prior DVT or PE, Cancer and OCP + Smoking + >/=35 TAD Risk Factors: Negative for Marfan's Syndrome [facility] Medical History Hypertension Home Medications amlodipine 5 mg PO DAILY 08/14/19 [History Last Taken 09/01/19] aspirin 325 mg PO DAILY 08/14/19 [History Last Taken 09/01/19] atorvastatin 40 mg PO QHS 08/14/19 [History Last Taken 08/31/19] cinnamon bark 500 mg PO DAILY 08/14/19 [History Last Taken 09/01/19] isosorbide mononitrate 60 mg PO DAILY 08/14/19 [History Last Taken 09/01/19] metformin 850 mg PO BID 08/14/19 [History Last Taken 09/01/19] metoprolol tartrate 50 mg PO BID 08/14/19 [History Last Taken 09/01/19] omega-3 fatty acids-fish oil 1 cap PO BID 08/14/19 [History Last Taken 09/01/19] omeprazole 40 mg PO DAILY #30 capsule. 08/14/19 [Rx Last Taken 09/01/19] vitamin A 10,000 unit PO DAILY 08/14/19 [History Last Taken 09/01/19] ascorbic acid (vitamin C) 1,000 mg PO DAILY 09/01/19 [History Last Taken 08/31/19] cyanocobalamin (vitamin B-12) 1,000 mcg PO DAILY 09/01/19 [History Last Taken 08/31/19] magnesium oxide 400 mg PO DAILY 09/01/19 [History Last Taken 08/31/19] tamsulosin 0.4 mg PO QHS 09/01/19 [History Last Taken 08/31/19] turmeric 400 mg PO DAILY 09/01/19 [History Last Taken 08/31/19] vitamin E 400 unit PO DAILY 09/01/19 [History Last Taken 09/01/19] Allergy/AdvReac Type Severity Reaction Status Date / Time alprazolam [From Xanax] AdvReac Other Verified 12/01/21 08:18 Surgical History History of coronary artery stent placement Hx of CABG Social History Smoking Status: Never smoker ROS ROS ED ROS Narrative No recent illness. Review of Systems ROS Unobtainable: Denies due to encephalopathy Constitutional Constitutional ED: Denies fever(s) Eyes Eyes: Denies none ENT ENT ED: Denies ear pain Cardiovascular Cardiovascular: Reports as per HPI and chest pain; Denies palpitations or racing heartbeat Respiratory/Chest Respiratory/Chest: Denies cough or dyspnea Gastrointestinal Gastrointestinal: Denies abdominal pain Genitourinary Genitourinary ED: Denies dysuria Musculoskeletal Musculoskeletal: Denies myalgias Integumentary Denies rash Neurologic Neurologic: Denies headache(s) Psychiatric Psychiatric: Denies depression Endocrine Endocrinology: Denies polyuria Hematologic/Lymphatic Hematologic/Lymphatic: Denies easy bruising Allergic/Immunologic Allergic/Immunologic ED: Denies urticaria EXAM Physical Exam Narrative Exam Narrative: 81-year-old male no acute distress vital signs stable afebrile. Pulse ox 97% on room air no hypoxia. H EENT exam unremarkable. Moist weeks membranes. Lungs are clear. Heart regular rhythm rate about 55. No murmur. Chest wall nontender. Abdomen soft nontender. Moving all 4 extremities. Equal symmetrical radial pulses. Calves are nontender without edema or cords. Neurologically is awake and alert with no focal motor deficits. Const Vital Signs: 12/01/21 08:15 12/01/21 08:18 12/01/21 09:07 Temperature 98 F Temperature Source Oral Pulse Rate 55 L Respiratory Rate 18 Respiratory Effort Normal Blood Pressure 186/67 H Blood Pressure Mean 106 Pulse Ox 97 Oxygen Delivery Method Room Air Room Air 12/01/21 09:53 12/01/21 10:00 12/01/21 11:00 Temperature Temperature Source Pulse Rate 52 L 48 L 53 L Respiratory Rate 18 16 16 Respiratory Effort Blood Pressure 143/88 H 165/69 H 159/78 H Blood Pressure Mean 106 101 105 Pulse Ox 98 92 98 Oxygen Delivery Method Room Air Room Air Room Air Positive well nourished and well developed; Negative for obese, cachectic, contractures or unkempt General Appearance ED: well developed and NAD; Negative for unkempt, cachectic, contractures or pallor Nutritional Appearance: Negative for cachectic or obese HEENT Reports moist mucous membranes normocephalic and atraumatic; Negative for trauma or tenderness Eyes PERRL and EOMs intact bilaterally Neck no lymphadenopathy, supple and no JVD Chest Wall Negative for inspection of chest normal or palpation of chest normal Resp normal respiratory effort and clear to auscultation bilaterally Effort and Inspection: respiratory distress Auscultation: Negative for rales, rhonchi or wheezes Cardio regular rhythm, S1 normal heart sound, S2 normal heart sound and no murmurs; Negative for regular rate Rate: Negative for bradycardia GI normal to inspection, nondistended, normoactive bowel sounds, soft to palpation, non-tender, non-distended and no masses; Negative for hepatosplenomegaly Auscultation: hyperactive bowel sounds Palpation: Negative for splenomegaly Back/Spine no CVA tenderness General Back: Negative for CVA tenderness Extremity normal to inspection General Extremety ED: Negative for edema, pulses abnormal or tenderness General Extremity: Negative for edema or pulses abnormal Neuro oriented x3 Sensorium / Orientation: awake, alert, oriented to person, oriented to place and oriented to time Motor Exam: strength 5/5 throughout Psych mental status grossly normal Appearance: Negative for unkempt Attitude: No agitated Mood & Affect: Negative for depressed or tearful Skin no rashes or lesions noted and no wounds General Skin Exam: Negative for jaundice or pallor Heart Score History: Slightly/Non-Suspicious ECG: Normal Age: >/= 65 years Risk Factors: >/= 3 Risk Factors or History of CAD Troponin: </= Normal Limit Score: 4 MDM MDM MDM Narrative Medical decision making narrative: 81-year-old male with atypical nonreproducible chest pain with a prior cardiac history. Will undergo a cardiac work-up. Treated with p.o. aspirin. Repeat exam patient is doing well at 11:30 AM. We went over all his test results. He and I are both comfortable with him being discharged home with outpatient follow-up. Lab Data Attestation: I reviewed the patient's lab results. Lab results narrative: CBC White count 7. H&H 11.7 and 32.4. Platelets normal. Electrolytes unremarkable gap of 6 BUN of 28 creatinine of 2.15 is got a history of renal insufficiency. Glucose is 181. He has a history of diabetes. His initial troponin was 19 and a repeat 2-hour delta troponin was 17. Labs: Laboratory Results - last 24 hr 12/01/21 12/01/21 12/01/21 08:30 08:30 10:59 WBC 7.0 RBC 3.78 L Hgb 11.7 L Hct 32.4 L MCV 85.7 MCH 31.0 MCHC 36.1 H RDW Std Deviation 39.2 RDW Coeff of Shana 12.6 Plt Count 259 MPV 10.2 Immature Gran % (Auto) 0.300 Neut % (Auto) 61.3 Lymph % (Auto) 22.9 [place] % (Auto) 13.0 H Eos % (Auto) 1.9 Baso % (Auto) 0.6 Absolute Neuts (auto) 4.3 Absolute Lymphs (auto) 1.61 Nucleated RBC % 0 Sodium 136 Potassium 3.6 Chloride 100 Carbon Dioxide 30.0 Anion Gap 6 BUN 28 H Creatinine 2.15 H Estim Creat Clear Calc 28.77 Est GFR (MDRD) Af Amer 38 L Est GFR (MDRD) Non-Af 32 L BUN/Creatinine Ratio 13.0 Glucose 181 H Calcium 9.4 Troponin I High Sens 19 17 Radiography Chest X-Ray - ED: 1 View, Read by ED Physician, Heart, Lungs, Mediastinum, Bony Structures, No Acute Disease and Chronic Changes Diagnostic Testing: Clinical Impression(s) from Imaging Studies Chest X-Ray 12/01/21 08:57 IMPRESSION: Hyperinflation. The lungs are clear. Calcific tendinitis of the right shoulder. Healed left rib fractures. Electronically Signed: Jesron Brasher MD at 9:21 EST , Chest x-ray cuddles portable, single view interpreted globally soft and radiologist shows chronic changes no acute process. Normal cardiac silhouette. Prior sternal wires from his CABG. Old left healed rib fractures. Rhythm Strip Rhythm Strip: Sinus Rhythm Rate: 54 Ectopy: None EKG Initial EKG: Attestation: I personally reviewed and interpreted this EKG as follows: Interpretation: Sinus Rhythm, No Acute Injury Pattern and Sinus Bradycardia Comments: Sinus bradycardia rate of 54 no acute signs of [place] nor ischemia. Discharge Plan Triage Chief Complaint: Chest Pain ED Provider: Yfn Benítez Dx/Rx/DC Orders Clinical Impression: Chest pain, History of hypertension, History of type 2 diabetes mellitus, CKD stage 3 due to type 2 diabetes mellitus Instructions: ED Pain, Acute, Uncertain Cause Prescriptions: No Action atorvastatin 40 MG tablet 40 mg PO QHS RF: 0 aspirin 325 MG tablet 325 mg PO DAILY RF: 0 metformin 850 MG tablet 850 mg PO BID RF: 0 amlodipine 5 MG tablet 5 mg PO DAILY RF: 0 isosorbide mononitrate 60 MG tablet 60 mg PO DAILY RF: 0 vitamin A 10,000 UNIT capsule 10,000 unit PO DAILY RF: 0 metoprolol tartrate 50 MG tablet 50 mg PO BID RF: 0 cinnamon bark 500 MG capsule 500 mg PO DAILY RF: 0 omega-3 fatty acids-fish oil 1 EACH capsule,delayed release(DR/EC) 1 cap PO BID RF: 0 omeprazole 40 MG capsule,delayed release(DR/EC) 40 mg PO DAILY Qty: 30 RF: 0 ascorbic acid (vitamin C) 1,000 MG tablet 1,000 mg PO DAILY RF: 0 tamsulosin 0.4 MG capsule 0.4 mg PO QHS RF: 0 cyanocobalamin (vitamin B-12) 1,000 MCG capsule 1,000 mcg PO DAILY RF: 0 turmeric 400 MG capsule 400 mg PO DAILY RF: 0 magnesium oxide 400 MG tablet 400 mg PO DAILY RF: 0 vitamin E 400 UNIT capsule 400 unit PO DAILY RF: 0 Primary Care Provider: Chris Fried Referrals: Chris Fried MD [Primary Care Provider] - 3-5 Days if not improving Activity Restrictions/Additional Instructions: Follow-up your primary care physician or 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 Your labs and chest x-ray today were unremarkable as was your EKG. If you are feeling worse or have increasing pain return. Otherwise follow-up they may want further evaluation. Disposition Disposition: Home, Self Care
[2021-12-01] MEDS: Aspirin 81 MG TAB.CHEW 324 MG PO (09:09)
[2021-12-01 09:14] LABS: Absolute Lymphocyte Count 1.61 X10^3/uL (0.83-4.51); Absolute Neutrophil Count 4.3 X10^3/uL (2.0-7.7); Basophil# 0.04 X10^3/uL; Basophil% 0.6 % (0-1); Eosinophil# 0.13 X10^3/uL; Eosinophils% 1.9 % (0-5); Hematocrit 32.4 % (40-54); Hemoglobin 11.7 g/dL (13.0-16.5); Lymphocyte # 1.61 X10^3/ul (0.83-4.51); Lymphocyte % 22.9 % (19-41); Mean Corp Hgb Conc 36.1 g/dL (32-36); Mean Corpuscular Volume 85.7 fL (80-94); Mean Platelet Vol. 10.2 fl (6.2-12.0); Monocyte# 0.91 X10^3/uL; NRBC Flagged by Analyzer 0 % (0-5); Neutrophil # 4.31 X10^3/uL (2.7-7.7); Neutrophil % 61.3 % (47-70); Platelet Count 259 K/mm3 (150-450); RBC Distribution Width CV 12.6 % (11.6-14.6); RBC Distribution Width SD 39.2 fl (35.1-43.9); Red Blood Count 3.78 M/mm3 (4.6-6.2)
[2021-12-01 09:23] LABS: Anion Gap 6 (5-15); BUN 28 mg/dL (7-18); Calcium,Total 9.4 mg/dL (8.5-10.1); Chloride 100 mmol/L (98-107); Creatinine, Serum 2.15 mg/dL (0.70-1.30); EST Glomerular Filtration Rate 32 mL/min (>60); Est Glom Filt Rate - Afr Amer 38 mL/min (>60); Estimated Creatinine Clearance 28.77 ml/min; Glucose 181 mg/dL (74-106); Potassium 3.6 mmol/L (3.5-5.1); Sodium Level 136 mmol/L (136-145); Troponin-I HS 19 pg/mL (3.0-78.0)
[2021-12-01 09:53] VITALS: BP 143/88; PULSE 52; RESP 18; O2SAT 98
[2021-12-01 10:00] VITALS: BP 165/69; PULSE 48; RESP 16; O2SAT 92
[2021-12-01 11:00] VITALS: BP 159/78; PULSE 53; RESP 16; O2SAT 98
[2021-12-01 11:20] LABS: Troponin-I HS 17 pg/mL (3.0-78.0)
[2021-12-01 11:52] VITALS: BP 154/79; PULSE 58; O2SAT 98
== END 2021-12-01 11:59 | disposition home or self-care (01) ==
PROVIDERS: Emergency Provider Emergency Medicine; PCP Family Medicine; Visit Provider Emergency Medicine
DX: R07.9 Chest pain, unspecified (principal); E11.22 Type 2 diabetes mellitus with diabetic chronic kidney disease; N18.30 Chronic kidney disease, stage 3 unspecified; I25.10 Atherosclerotic heart disease of native coronary artery without angina pectoris; I12.9 Hypertensive chronic kidney disease with stage 1 through stage 4 chronic kidney disease, or unspecified chronic kidney disease; Z95.5 Presence of coronary angioplasty implant and graft; Z79.82 Long term (current) use of aspirin; Z79.84 Long term (current) use of oral hypoglycemic drugs; Z79.899 Other long term (current) drug therapy
CPT/HCPCS: 71045; 80048; 84484; 85025; 93005; 99285; A4216

== ENCOUNTER → 2022-05-31 | Outpatient (CLI) | payer MEDICARE, SELFPAY ==
[2022-05-31 12:39] LABS: Protein:Creat Ratio 757 mg/g CRE (0-200)
== END | disposition home or self-care (01) ==
PROVIDERS: PCP Family Medicine; Visit Provider Internal Medicine Nephrology
DX: E11.22 Type 2 diabetes mellitus with diabetic chronic kidney disease (principal); N18.9 Chronic kidney disease, unspecified
CPT/HCPCS: 82570; 84156

== ENCOUNTER → 2022-07-02 | Outpatient (CLI) | payer MEDICARE, SELFPAY ==
[2022-07-02 12:45] LABS: PTHIN 130.8 pg/mL (18.4-80.1)
[2022-07-02 13:18] LABS: Anion Gap 6 (5-15); BUN 35 mg/dL (7-18); BUN/Creat Ratio 16.4 RATIO (10-20); Calcium,Total 8.6 mg/dL (8.5-10.1); Chloride 99 mmol/L (98-107); Creatinine, Serum 2.13 mg/dL (0.70-1.30); EST Glomerular Filtration Rate 32 mL/min (>60); Est Glom Filt Rate - Afr Amer 39 mL/min (>60); Glucose 151 mg/dL (74-106); Potassium 3.5 mmol/L (3.5-5.1); Sodium Level 136 mmol/L (136-145)
== END | disposition home or self-care (01) ==
LOC: POLAB3 11:13
PROVIDERS: PCP Family Medicine; Visit Provider Internal Medicine Nephrology
DX: E87.5 Hyperkalemia (principal); N25.81 Secondary hyperparathyroidism of renal origin
CPT/HCPCS: 36415; 80048; 83970

== ENCOUNTER → 2022-12-04 | Outpatient (CLI) | payer MEDICARE, SELFPAY ==
[2022-12-04 12:36] LABS: PTHIN 133.2 pg/mL (18.4-80.1)
[2022-12-04 12:49] LABS: Albumin, Serum 3.6 g/dL (3.2-5.0); BUN 25 mg/dL (7-18); BUN/Creat Ratio 14.2 RATIO (10-20); Calcium,Total 8.6 mg/dL (8.5-10.1); Chloride 99 mmol/L (98-107); Creatinine, Serum 1.76 mg/dL (0.70-1.30); EST Glomerular Filtration Rate 40 mL/min (>60); Est Glom Filt Rate - Afr Amer 48 mL/min (>60); Glucose 184 mg/dL (74-106); Phosphorus 2.8 mg/dL (2.5-4.9); Potassium 3.7 mmol/L (3.5-5.1); Sodium Level 134 mmol/L (136-145)
== END | disposition home or self-care (01) ==
PROVIDERS: PCP Family Medicine; Referring Provider Internal Medicine Nephrology; Visit Provider Internal Medicine Nephrology
DX: N25.81 Secondary hyperparathyroidism of renal origin (principal); N18.32 Chronic kidney disease, stage 3b; E87.5 Hyperkalemia
CPT/HCPCS: 36415; 80069; 83970

== ENCOUNTER → 2023-06-11 | Outpatient (CLI) | payer MEDICARE, SELFPAY ==
[2023-06-11 10:49] LABS: Albumin, Serum 3.5 g/dL (3.2-5.0); BUN 41 mg/dL (7-18); BUN/Creat Ratio 22.4 RATIO (10-20); Calcium,Total 8.9 mg/dL (8.5-10.1); Chloride 109 mmol/L (98-107); Creatinine, Serum 1.83 mg/dL (0.70-1.30); EST Glomerular Filtration Rate 38 mL/min (>60); Est Glom Filt Rate - Afr Amer 46 mL/min (>60); Glucose 162 mg/dL (74-106); Phosphorus 3.7 mg/dL (2.5-4.9); Potassium 5.3 mmol/L (3.5-5.1); Sodium Level 137 mmol/L (136-145)
[2023-06-11 12:36] LABS: Protein, Urine (Random) 79.8 mg/dL (<11.9); Protein:Creat Ratio 889 mg/g CRE (0-200)
== END | disposition home or self-care (01) ==
LOC: LAB 09:14
PROVIDERS: PCP Family Medicine; Referring Provider Internal Medicine Nephrology; Visit Provider Internal Medicine Nephrology
DX: E11.22 Type 2 diabetes mellitus with diabetic chronic kidney disease (principal); N25.81 Secondary hyperparathyroidism of renal origin; N18.32 Chronic kidney disease, stage 3b
CPT/HCPCS: 36415; 80069; 82570; 83970; 84156

== ENCOUNTER 2023-12-25 16:31 | Emergency (ER) | payer MEDICARE, SELFPAY ==
[2023-12-25 16:32] VITALS: BP 145/111; PULSE 74; RESP 16; TEMP 35.6; O2SAT 95
--- NOTE | 2023-12-25 16:48 | EDS_ITS ---
HPI History of Present Illness HPI Narrative: 83-year-old male [id number]. He was walking today normally walks about a couple miles a day. Tripped and fell and when he landed he went to catch himself with his right hand and injured his right long and ring fingers. He has lacerations and appears to have dislocations. He went to the urgent care setting the emergency department. He is unsure of his last tetanus shot. He denies any other injuries. Did not hit his head. He is on no blood thinners. Chief Complaint: Upper Extremity Injury Informant: patient Occured/Mechanism Mechanism/Context: Yes injury and Yes blunt trauma Onset/Context/Timing Onset: Today and Hours Context: Sudden Onset Timing: Continuous Quality of Pain: Aching Current Severity: Moderate Maximum Severity: Moderate Associated Symptoms Associated Symptoms: Negative for Parasthesia, Weakness or Loss of Funtion Narrative Narrative: 83-year-old male [id number] tripped and fell and went to catch himself injuring his right hand both the long and ring fingers with lacerations and suspected dislocations. Tetanus Immunization: Unknown Prior similar symptoms: No Recent Illness/Hospitalization: No [facility] Medical History Hypertension Home Medications amlodipine 5 mg tablet 5 mg PO DAILY 08/14/19 [History Last Taken 09/01/19] aspirin 325 mg tablet 325 mg PO DAILY 08/14/19 [History Last Taken 09/01/19] atorvastatin 40 mg tablet 40 mg PO QHS 08/14/19 [History Last Taken 08/31/19] cinnamon bark 500 mg capsule 500 mg PO DAILY 08/14/19 [History Last Taken 09/01/19] isosorbide mononitrate 60 mg tablet,extended release 24 hr 60 mg PO DAILY 08/14/19 [History Last Taken 09/01/19] metformin 850 mg tablet 850 mg PO BID 08/14/19 [History Last Taken 09/01/19] metoprolol tartrate 50 mg tablet 50 mg PO BID 08/14/19 [History Last Taken 09/01/19] omega-3 fatty acids-fish oil 684 mg-1,200 mg capsule,delayed release 1 cap PO BID 08/14/19 [History Last Taken 09/01/19] omeprazole 40 mg capsule,delayed release 40 mg PO DAILY ##30 08/14/19 [Rx Last Taken 09/01/19] vitamin A 3,000 mcg (10,000 unit) capsule 10,000 unit PO DAILY 08/14/19 [History Last Taken 09/01/19] ascorbic acid (vitamin C) 1,000 mg tablet 1,000 mg PO DAILY 09/01/19 [History Last Taken 08/31/19] cyanocobalamin (vitamin B-12) 1,000 mcg capsule 1,000 mcg PO DAILY 09/01/19 [History Last Taken 08/31/19] magnesium oxide 400 mg (241.3 mg magnesium) tablet 400 mg PO DAILY 09/01/19 [History Last Taken 08/31/19] tamsulosin 0.4 mg capsule 0.4 mg PO QHS 09/01/19 [History Last Taken 08/31/19] turmeric 400 mg capsule 400 mg PO DAILY 09/01/19 [History Last Taken 08/31/19] vitamin E 268 mg (400 unit) capsule 400 unit PO DAILY 09/01/19 [History Last Taken 09/01/19] cephalexin 500 mg capsule 500 mg PO TID 7 days #21 caps 12/25/23 [Rx Last Taken Unknown] Allergy/AdvReac Type Severity Reaction Status Date / Time alprazolam [From Xanax] AdvReac Other Verified 12/01/21 08:18 Surgical History History of coronary artery stent placement Hx of CABG Social History Smoking Status: Never smoker ROS ROS ED ROS Narrative Denies recent illness. Review of Systems ROS Unobtainable: Denies due to encephalopathy Constitutional Constitutional ED: Denies chills or fever(s) Eyes Eyes: Denies blurry vision ENT ENT ED: Denies ear pain Cardiovascular Cardiovascular: Denies chest pain or palpitations Respiratory/Chest Respiratory/Chest: Denies cough or dyspnea Gastrointestinal Gastrointestinal: Denies abdominal pain, constipation, diarrhea, melena, nausea or vomiting Genitourinary Genitourinary ED: Denies dysuria or hematuria Musculoskeletal Musculoskeletal: Denies back pain Integumentary Denies abscess Neurologic Neurologic: Denies headache(s) Psychiatric Psychiatric: Denies anxiety or depression Endocrine Endocrinology: Denies cold intolerance Hematologic/Lymphatic Hematologic/Lymphatic: Denies easy bleeding, easy bruising or lymphadenopathy Allergic/Immunologic Allergic/Immunologic ED: Denies mouth swelling, tongue swelling or urticaria EXAM Physical Exam Narrative Exam Narrative: Well-appearing 83-year-old male. Vital signs stable afebrile. Initial blood pressure elevated 145/111. H EENT exam pupils round react to light. No signs of trauma to his face or scalp. Nontender. No hematoma. No lacerations. Neck nontender. Trachea midline. Back nontender. Lungs clear equal symmetrical. Heart regular rhythm rate about 75 no murmur. Chest wall ribs nontender. Abdomen soft nontender. Pelvic girdle intact. Left upper and both lower extremities are nontender no deformities. Normal range of motion. Right hand he has a laceration on the right long finger and the ring finger at the PIP on the palmar side. The one has exposed tendons. They may be dislocated. Neurologically is awake and alert. Answering questions and following commands. He ambulated into the room himself. Const Vital Signs: 12/25/23 16:32 Temperature 96.1 F L Temperature Source Temporal Pulse Rate 74 Respiratory Rate 16 Blood Pressure 145/111 H Blood Pressure Mean 122 Pulse Ox 95 Oxygen Delivery Method Room Air Positive well nourished and well developed; Negative for obese, cachectic, contractures or unkempt General Appearance ED: well developed and NAD; Negative for unkempt, cachectic, contractures, cyanotic or diaphoretic Nutritional Appearance: Negative for cachectic or obese HEENT Reports moist mucous membranes normocephalic and atraumatic; Negative for trauma or tenderness Eyes EOMs intact bilaterally General Eye ED: Negative for other Neck full ROM and supple General: Negative for tenderness Chest Wall inspection of chest normal and palpation of chest normal Chest: Negative for other Resp normal respiratory effort and clear to auscultation bilaterally Effort and Inspection: Negative for pain with movement Auscultation: Negative for rales, rhonchi or wheezes Cardio regular rate, regular rhythm, S1 normal heart sound, S2 normal heart sound and no murmurs Rate: Negative for bradycardia or tachycardic Rhythm: Negative for abnormal rhythm GI non-tender, non-distended and no masses Inspection: Negative for abdominal distention Auscultation: normoactive bowel sounds Palpation: soft; Negative for tender, guarding or rebound tenderness present Bladder / Kidney Exam: No other Back/Spine no CVA tenderness General Back: Negative for CVA tenderness Cervical Spine: Negative for cervical spine tenderness Thoracic Spine / Upper Back: Negative for thoracic spinal tenderness Lumbar Spine / Lower Back: Negative for lumbar spinal tenderness Extremity Negative for normal to inspection or full ROM Extremity Narrative: Right hand injury. Palmar aspect laceration of the PIP of both the right long and ring fingers. Palmar side. Exposed tendon. Decreased range of motion. Neuro oriented x3, CN's II-XII intact bilaterally and moves all extremities Sensorium / Orientation: alert, oriented to person, oriented to place and oriented to time; Negative for orientation impaired, lethargic or stuporous Motor Exam: strength 5/5 throughout Psych mental status grossly normal Appearance: Negative for unkempt Attitude: No agitated Mood & Affect: Negative for depressed, anxious or tearful Skin Skin Narrative: Laceration of the palmar side of the PIP of both the right long and ring fingers . General Skin Exam: Negative for petechiae Rashes: no rashes Trauma: laceration; Negative for no lacerations or abrasions MDM MDM MDM Narrative Medical decision making narrative: 83-year-old male [id number]. Tripped and fell went to catch himself and injured his right long and ring fingers. Most likely dislocations at the PIP. With laceration to palmar side of the PIP. Tetanus will be updated. X-ray obtained. Suture set up. There is exposed flexor tendon on at least one of the lacerations. He will need antibiotic coverage and close follow-up. History & Record Review Discussion w/independent historian: Patient Radiography Diagnostic Testing: Right hand x-ray, 3 views, interpreted by myself shows dislocated right long finger at the PIP. With a small avulsion fracture. No other fractures or dislocation noted. Interpreted both by myself and the radiologist. Postreduction x-ray, 3 views, interpreted by myself shows no acute abnormality. Good reduction. Good alignment. Procedures Lacerations Right long finger laceration at flexor PIP:: Length: 2.5 in Depth: Tendon Shape: Linear Prep: Marlena-Nela Laceration repair: Digital block, Irrigated, Nerve block and Skin sutures Number of Sutures/[place]: 6 Suture Information: Ethilon, Simple and 4-0 Comment: Right long finger dislocation with a laceration to PIP involve the skin subcu tissue down to the tendon. Tendon is not a. To be torn or lacerated. Digital block. Cleaned with his Shur-Clens. Washed and irrigated with saline. Explored. Closed using 6 simple erupted 4-0 Ethilon sutures. Proper hemostasis wound closure is obtained. Postreduction he had good flexion extension and sensation. Good hemostasis and wound closure was obtained. Patient was instructed on wound care. Right ring finger PIP laceration repair:: Length: 2.5 in Depth: Tendon Shape: Linear Prep: Shure-Clens Laceration repair: Lidocaine and Local Number of Sutures/[place]: 6 Suture Information: Ethilon, Simple and 4-0 Comment: Right ring finger laceration to PIP. Involve the skin and subcu tissue. You can see the flexor tendon. Does appear to be involved. He has normal range of motion. Normal distal sensation. Local anesthetized lidocaine. Cleaned with Shur-Clens. Irrigated and washed with saline. Explored. Closed using six 4-0 Ethilon simple interrupted sutures. Proper hemostasis and wound closure obtained. Normal flexion extension post closure. Distally normal sensation. Discharge Plan Triage Chief Complaint: Upper Extremity Injury ED Provider: Yfn Benítez Dx/Rx/DC Orders Clinical Impression: Dislocated finger, Finger laceration Instructions: ED Finger Dislocation, ED Laceration, Hand: All Closures Prescriptions: New cephalexin 500 mg capsule 500 mg PO TID 7 Days Qty: 21 0RF No Action atorvastatin 40 MG tablet 40 mg PO QHS aspirin 325 MG tablet 325 mg PO DAILY metformin 850 MG tablet 850 mg PO BID amlodipine 5 MG tablet 5 mg PO DAILY isosorbide mononitrate 60 MG tablet 60 mg PO DAILY vitamin A 10,000 UNIT capsule 10,000 unit PO DAILY metoprolol tartrate 50 MG tablet 50 mg PO BID cinnamon bark 500 MG capsule 500 mg PO DAILY omega-3 fatty acids-fish oil 1 EACH capsule,delayed release(DR/EC) 1 cap PO BID omeprazole 40 MG capsule,delayed release(DR/EC) 40 mg PO DAILY Qty: 30 0RF ascorbic acid (vitamin C) 1,000 MG tablet 1,000 mg PO DAILY tamsulosin 0.4 MG capsule 0.4 mg PO QHS cyanocobalamin (vitamin B-12) 1,000 MCG capsule 1,000 mcg PO DAILY turmeric 400 MG capsule 400 mg PO DAILY magnesium oxide 400 MG tablet 400 mg PO DAILY vitamin E 400 UNIT capsule 400 unit PO DAILY Primary Care Provider: Chris Fried Referrals: Chris Fried MD [Primary Care Provider] - 10-14 Days suture removal Activity Restrictions/Additional Instructions: Clean finger daily with soap and water. Apply antibiotic ointment. Dry thoroughly. Do not soak in any water or liquids. Watch for any signs of infection such as pus, redness, swelling or fever if seen return. Keflex the antibiotic 1 pill 3 times a day for 1 week to try to prevent any infection. Your right long finger was dislocated. Has been reduced. Start doing range of motion with it to prevent stiffness once the stitches were taken out. If you do not have normal range of motion he need to follow-up with an orthopedic physician. At this time it does not appear to be a tendon injury to either finger. I could see the tendons but they do not seem to be torn or lacerated. Disposition Disposition: Home, Self Care
--- NOTE | 2023-12-25 17:21 | RAD_ITS ---
INDICATION: Trauma, fall, hand injury, attention third and fourth digits EXAMINATION/TECHNIQUE: X-RAY - RIGHT XR Hand Min 3 Views 4 VIEWS COMPARISON: None. FINDINGS: SOFT TISSUES: Soft tissue swelling about the third PIP joint. No radiopaque foreign body. BONES/JOINTS: Posteromedial dislocation of the third middle phalanx on the third proximal phalanx with small fragment of avulsed cortex dorsally. Remaining joint spaces anatomically aligned with degenerative changes. No sclerotic or destructive changes observed. RAD/Hand Min 3 Views IMPRESSION: Dislocation at the third PIP joint with small dorsal cortical avulsion fracture. Electronically Signed: Juan Luis Mahoney MD at 17:56 EDT ,
[2023-12-25] MEDS: Diphth,Pertuss(Acell),Tet Vac 0.5 ML Vial IM (17:58)
[2023-12-25] MEDS: Lidocaine 1% (20 ml mdv) 20 ML Vial INFILT (17:58)
--- NOTE | 2023-12-25 18:30 | RAD_ITS ---
INDICATION: Postreduction EXAMINATION/TECHNIQUE: X-RAY - RIGHT HAND XR Fingers Min 2 Views 3 VIEWS COMPARISON: Right hand series earlier same date FINDINGS: Interval anatomic reduction of the third PIP joint. Small avulsed cortical fragment at the joint line medially seen on single view. RAD/Finger(s) Min 2 Views IMPRESSION: Anatomic alignment of the third PIP joint with small cortical avulsion fracture. Electronically Signed: Juan Luis Mahoney MD at 19:23 EDT ,
[2023-12-25 19:06] VITALS: BP 108/77; PULSE 82; RESP 16; TEMP 36.7; O2SAT 96
== END 2023-12-25 19:07 | disposition home or self-care (01) ==
PROVIDERS: Emergency Provider Emergency Medicine; PCP Family Medicine; Visit Provider Emergency Medicine
DX: S63.252A Unspecified dislocation of right middle finger, initial encounter (principal); S63.254A Unspecified dislocation of right ring finger, initial encounter; S61.212A Laceration without foreign body of right middle finger without damage to nail, initial encounter; S61.218A Laceration without foreign body of other finger without damage to nail, initial encounter; Z95.5 Presence of coronary angioplasty implant and graft; Z95.1 Presence of aortocoronary bypass graft; W19.XXXA Unspecified fall, initial encounter
CPT/HCPCS: 12002; 73130; 73140; 90715; 99283

== ENCOUNTER → 2024-06-24 | Outpatient (CLI) | payer MEDICARE, SELFPAY ==
[2024-06-24 13:01] LABS: PTHIN 153.6 pg/mL (18.4-80.1)
[2024-06-24 13:40] LABS: Protein, Urine (Random) 49.5 mg/dL (<11.9); Protein:Creat Ratio 673 mg/g CRE (0-200)
== END | disposition home or self-care (01) ==
LOC: POLAB3 12:09
PROVIDERS: PCP Family Medicine; Visit Provider Internal Medicine Nephrology
DX: E11.22 Type 2 diabetes mellitus with diabetic chronic kidney disease (principal); N18.9 Chronic kidney disease, unspecified; E21.1 Secondary hyperparathyroidism, not elsewhere classified
CPT/HCPCS: 36415; 82570; 83970; 84156

== ENCOUNTER 2025-06-15 12:33 | Inpatient (IN) | payer MEDICARE, SELFPAY ==
[2025-06-15] VITALS (8 sets, daily range): BP systolic 137–178; BP diastolic 66–95; PULSE 62–89; RESP 16–22; TEMP 36.2–37; O2SAT 96–100; BMI 27.3; BMI 26.9
--- NOTE | 2025-06-15 12:57 | ED.VIS.CHEST ---
HPI History of Present Illness Chief Complaint: Chest Pain Detail of Chief Complaint: Chest pain Informant: patient Narrative Narrative: Patient presents to the emergency department with complaint of chest discomfort since around 11 AM. Patient states that he initially started with hiccups that are continuing. Denies recent illness. Denies recent travel or surgery. There is no radiation of the chest pain that he describes more as a pressure. Patient with known history of coronary artery disease with prior CABG and cardiac stenting. Denies recent travel or surgery. [facility] Medical History Hypertension Home Medications ?Medication ?Instructions ?Recorded ?Last Taken ?Type amlodipine 5 mg tablet 5 mg PO DAILY 08/14/19 09/01/19 History aspirin 325 mg tablet 325 mg PO DAILY 08/14/19 09/01/19 History atorvastatin 40 mg tablet 40 mg PO QHS 08/14/19 08/31/19 History cinnamon bark 500 mg capsule 500 mg PO DAILY 08/14/19 09/01/19 History isosorbide mononitrate 60 mg 60 mg PO DAILY 08/14/19 09/01/19 History tablet,extended release 24 hr metformin 850 mg tablet 850 mg PO BID 08/14/19 09/01/19 History metoprolol tartrate 50 mg tablet 50 mg PO BID 08/14/19 09/01/19 History omega-3 fatty acids-fish oil 684 1 cap PO BID 08/14/19 09/01/19 History mg-1,200 mg capsule,delayed release omeprazole 40 mg capsule,delayed 40 mg PO DAILY ##30 08/14/19 09/01/19 Rx release vitamin A 3,000 mcg (10,000 unit) 10,000 unit PO DAILY 08/14/19 09/01/19 History capsule ascorbic acid (vitamin C) 1,000 mg 1,000 mg PO DAILY 09/01/19 08/31/19 History tablet cyanocobalamin (vitamin B-12) 1,000 mcg PO DAILY 09/01/19 08/31/19 History 1,000 mcg capsule magnesium oxide 400 mg (241.3 mg 400 mg PO DAILY 09/01/19 08/31/19 History magnesium) tablet tamsulosin 0.4 mg capsule 0.4 mg PO QHS 09/01/19 08/31/19 History turmeric 400 mg capsule 400 mg PO DAILY 09/01/19 08/31/19 History vitamin E 268 mg (400 unit) capsule 400 unit PO DAILY 09/01/19 09/01/19 History cephalexin 500 mg capsule 500 mg PO TID 7 days #21 caps 12/25/23 Unknown Rx Allergy/AdvReac Type Severity Reaction Status Date / Time alprazolam (From Xanax) AdvReac Other Verified 06/15/25 12:36 Surgical History History of coronary artery stent placement Hx of CABG Social History Smoking Status: Never smoker ROS ROS ED Review of Systems ROS Unobtainable: other Constitutional Constitutional ED: Reports lethargy; Denies chills, fever(s), sweats or weight loss Eyes Eyes: Denies blurry vision, change in vision or diplopia ENT ENT ED: Denies rhinorrhea or sore throat Cardiovascular Cardiovascular: Reports chest pain; Denies orthopnea or racing heartbeat Respiratory/Chest Respiratory/Chest: Denies cough, dyspnea, dyspnea on exertion, orthopnea or sputum Gastrointestinal Gastrointestinal: Reports other Details: Hiccups ; Denies abdominal pain, diarrhea, nausea or vomiting Genitourinary Genitourinary ED: Denies dysuria, hematuria or urinary frequency Musculoskeletal Musculoskeletal: Denies arthralgias, back pain, myalgias or neck pain Integumentary Denies abscess, Abrasions or rash Neurologic Neurologic: Denies headache(s) or weakness Psychiatric Psychiatric: Denies anxiety, depression or suicidal thoughts Endocrine Endocrinology: Denies polydipsia, polyphagia or polyuria Hematologic/Lymphatic Hematologic/Lymphatic: Denies easy bleeding, easy bruising or lymphadenopathy Allergic/Immunologic Allergic/Immunologic ED: Denies mouth swelling, tongue swelling or urticaria EXAM Physical Exam Const Vital Signs: 06/15/25 12:34 06/15/25 13:13 06/15/25 13:14 Temperature 98.1 F Temperature Source Oral Pulse Rate 62 Respiratory Rate 22 H Respiratory Effort Normal Blood Pressure 178/84 H Blood Pressure Mean 115 Pulse Ox 100 Oxygen Delivery Method Room Air Room Air Positive well nourished and well developed General Appearance ED: well developed and NAD HEENT Reports TM's clear and moist mucous membranes normocephalic and atraumatic; Negative for trauma or tenderness Tympanic Membrane ED: Yes TM's clear Eyes PERRL and EOMs intact bilaterally General Eye ED: Negative for pale conjunctiva or scleral icterus Neck no lymphadenopathy, supple and no JVD General: Negative for tenderness Chest Wall inspection of chest normal and palpation of chest normal Chest: Negative for tenderness Resp normal respiratory effort and clear to auscultation bilaterally Effort and Inspection: Negative for respiratory distress or pain with movement Auscultation: Negative for rhonchi, wheezes or diminished lung sounds Cardio regular rate, regular rhythm, S1 normal heart sound, S2 normal heart sound and no murmurs Peripheral Pulses: pulses 2+ throughout GI normal to inspection, nondistended, normoactive bowel sounds, soft to palpation, non-tender, non-distended and no masses Back/Spine no CVA tenderness and no thoracic nor lumbar tenderness Extremity normal to inspection General Extremety ED: Negative for edema General Extremity: Negative for edema Neuro oriented x3, CN's II-XII intact bilaterally, no sensory deficits noted and gait normal Sensorium / Orientation: awake, alert, oriented to person, oriented to place and oriented to time Motor Exam: strength 5/5 throughout and strength abnormal Psych mental status grossly normal Skin no rashes or lesions noted and no wounds MDM MDM MDM Narrative Medical decision making narrative: Patient presents with chest pain and hiccups. Clinically looks well. Will obtain EKG and labs. Will give Thorazine for the hiccups as he has allergy to Xanax. EKG obtained arrival showed a sinus rhythm with rate of 59 bpm with right bundle branch block. CBC with differential obtained showed white count of 9.0 with hemoglobin 13.2 and platelet count 248. Chemistries with a sodium of 116 and potassium of 5.4. CO2 was 19.9. BUN 44 creatinine 2.3. Troponin was elevated at 57. After treatment with Thorazine his hiccups resolved and his chest pain is currently resolved. His D-dimer was elevated however given his kidney function will not be able to obtain a CTA of his chest at this time to rule out PE. I did start patient empirically on heparin given the elevated troponin and the elevated D-dimer. Patient received normal saline. Will discuss with hospitalist to evaluate for admission for hyponatremia as well as non-ST elevation NC. May need hydration and possible CTA of chest to rule out PE versus VQ scan. Lab Data Attestation: I reviewed the patient's lab results. Labs: Laboratory Results - last 24 hr 06/15/25 13:13 WBC 9.0 RBC 4.22 L Hgb 13.2 Hct 36.9 L MCV 87.4 MCH 31.3 MCHC 35.8 RDW Std Deviation 39.2 RDW Coeff of Shana 12.3 Plt Count 248 MPV 10.0 Immature Gran % (Auto) 0.600 Neut % (Auto) 76.0 H Lymph % (Auto) 14.4 L [place] % (Auto) 7.9 Eos % (Auto) 0.9 Baso % (Auto) 0.2 Absolute Neuts (auto) 6.8 Absolute Lymphs (auto) 1.29 Nucleated RBC % 0 D-Dimer Quant (PE/DVT) 1.48 H* Sodium 116 L* Potassium 5.4 H Chloride 81 L Carbon Dioxide 19.9 L Anion Gap 14 BUN 44 H Creatinine 2.30 H Estim Creat Clear Calc 25.57 L Est GFR (MDRD) Non-Af 28 L BUN/Creatinine Ratio 19.0 Glucose 194 H Calcium 8.8 Troponin T High Sens 57 H* Radiography Diagnostic Testing: Clinical Impression(s) from Imaging Studies Chest X-Ray 06/15/25 13:20 IMPRESSION: Hyperinflation. Prior CABG. Findings suggestive of mild linear scarring at the lung bases. Reading Location: [place] [id number] EKG Initial EKG: Attestation: I personally reviewed and interpreted this EKG as follows: Comments: Sinus rhythm with rate of 59 bpm with right bundle branch block Discharge Plan Triage Chief Complaint: Chest Pain ED Provider: Maricruz Valenzuela Dx/Rx/DC Orders Clinical Impression: Acute hyponatremia, Chest pain, Acute hyperkalemia Prescriptions: No Action atorvastatin 40 MG tablet 40 mg PO QHS aspirin 325 MG tablet 325 mg PO DAILY metformin 850 MG tablet 850 mg PO BID amlodipine 5 MG tablet 5 mg PO DAILY isosorbide mononitrate 60 MG tablet 60 mg PO DAILY vitamin A 10,000 UNIT capsule 10,000 unit PO DAILY metoprolol tartrate 50 MG tablet 50 mg PO BID cinnamon bark 500 MG capsule 500 mg PO DAILY omega-3 fatty acids-fish oil 1 EACH capsule,delayed release(DR/EC) 1 cap PO BID omeprazole 40 MG capsule,delayed release(DR/EC) 40 mg PO DAILY Qty: 30 0RF ascorbic acid (vitamin C) 1,000 MG tablet 1,000 mg PO DAILY tamsulosin 0.4 MG capsule 0.4 mg PO QHS cyanocobalamin (vitamin B-12) 1,000 MCG capsule 1,000 mcg PO DAILY turmeric 400 MG capsule 400 mg PO DAILY magnesium oxide 400 MG tablet 400 mg PO DAILY vitamin E 400 UNIT capsule 400 unit PO DAILY cephalexin 500 mg capsule 500 mg PO TID 7 Days Qty: 21 0RF Primary Care Provider: Chris Fried Referrals: Chris Fried MD [Primary Care Provider, Family Practice] Print Language: Ghanaian
--- NOTE | 2025-06-15 13:00 | EKG12_ITS ---
Test Reason : CHEST PAIN Blood Pressure : */* mmHG Vent. Rate : 59 BPM Atrial Rate : 59 BPM P-R Int : 178 ms QRS Dur : 142 ms QT Int : 476 ms P-R-T Axes : 40 17 40 degrees QTcB Int : 471 ms Sinus bradycardia Right bundle branch block Abnormal ECG Confirmed by NAVEEN MCCABE, MINDY ([id number]), production editor HAKAN NOWAK ([id number]) on 06/16/2025 6:00:23 AM Referred By: Confirmed By: MINDY HODGE MD
--- NOTE | 2025-06-15 13:00 | EKG12_ITS ---
Test Reason : CHEST PAIN Blood Pressure : */* mmHG Vent. Rate : 59 BPM Atrial Rate : 59 BPM P-R Int : 178 ms QRS Dur : 142 ms QT Int : 476 ms P-R-T Axes : 40 17 40 degrees QTcB Int : 471 ms Sinus bradycardia Right bundle branch block Abnormal ECG Confirmed by NAVEEN MCCABE, MINDY ([id number]), editor sound HAKAN NOWAK ([id number]) on 06/16/2025 6:00:23 AM Referred By: Confirmed By: MINDY HODGE MD
--- NOTE | 2025-06-15 13:20 | RAD_ITS ---
PROCEDURE: CHEST 1 VIEW (PORTABLE) 06/15/2025 REASON FOR EXAM: CHEST PAIN TECHNIQUE: Frontal view of the chest. COMPARISON: Prior study dated December 01, 2021. FINDINGS: Hardware: EKG electrodes are seen. Heart: Prior CABG. Mild cardiomegaly. Lungs: Hyperinflation. Mild increased linear markings at the lung bases suggestive of mild scarring. No focal infiltrate. Bones: Degenerative changes are identified within the thoracic spine. Osteoarthritis of the right shoulder. Other: RAD/Chest 1 View (Portable) IMPRESSION: Hyperinflation. Prior CABG. Findings suggestive of mild linear scarring at the lung bases. Reading Location: [place] [address]
--- NOTE | 2025-06-15 13:20 | RAD_ITS ---
PROCEDURE: CHEST 1 VIEW (PORTABLE) 06/15/2025 REASON FOR EXAM: CHEST PAIN TECHNIQUE: Frontal view of the chest. COMPARISON: Prior study dated December 01, 2021. FINDINGS: Hardware: EKG electrodes are seen. Heart: Prior CABG. Mild cardiomegaly. Lungs: Hyperinflation. Mild increased linear markings at the lung bases suggestive of mild scarring. No focal infiltrate. Bones: Degenerative changes are identified within the thoracic spine. Osteoarthritis of the right shoulder. Other: RAD/Chest 1 View (Portable) IMPRESSION: Hyperinflation. Prior CABG. Findings suggestive of mild linear scarring at the lung bases. Reading Location: [place] [address]
[2025-06-15 13:25] LABS: Hematocrit 36.9 % (40-54); Hemoglobin 13.2 g/dL (13.0-16.5); Immature Granulocytes Count 0.050 X10^3/uL (0.0-0.0); Mean Corp Hgb Conc 35.8 g/dL (32-36); Mean Corpuscular Volume 87.4 fL (80-94); Mean Platelet Vol. 10.0 fl (6.2-12.0); NRBC Flagged by Analyzer 0 % (0-5); Platelet Count 248 K/mm3 (150-450); RBC Distribution Width CV 12.3 % (11.6-14.6); RBC Distribution Width SD 39.2 fl (35.1-43.9); Red Blood Count 4.22 M/mm3 (4.6-6.2); White Blood Count 9.0 K/mm3 (4.4-11.0)
[2025-06-15] MEDS: 0.9% Normal Saline (1000mL) 1,000 ML 150 ML IV (13:27)
[2025-06-15 13:40] LABS: D-Dimer Quantitative (DVT/PE) 1.48 FEU/ug/m (0.27-0.49)
[2025-06-15 13:55] LABS: BUN 44 mg/dL (4-19); BUN/Creat Ratio 19.0 RATIO (10-20); Calcium,Total 8.8 mg/dL (7.6-11.0); Carbon Dioxide 19.9 mmol/L (21.0-32.0); Chloride 81 mmol/L (98-108); Estimated Creatinine Clearance 25.57 ml/min (50-250); Glucose 194 mg/dL (70-99); Potassium 5.4 mmol/L (3.3-5.1)
[2025-06-15] MEDS: Heparin Injection (Vial) 5,000 UNIT/ML VIAL 6000 UNIT IV (14:41)
[2025-06-15] MEDS: HEPARIN/D5w 25,000 UNITS 25,000 UNITS/250 ML IV.SOLN. 13 UNITS CONT INF (15:02)
[2025-06-15 15:06] LABS: Prothrombin Time (Protime)PT. 13.2 SECONDS (11.7-14.9)
[2025-06-15 15:07] LABS: Partial Thromboplast Time 27.9 Seconds (24.1-36.2)
--- NOTE | 2025-06-15 15:15 | PCM.HP.STD ---
HPI - General General Date of Admission: 06/15/25 Date of Service: 06/15/25 Chief Complaint: Hiccups and chest pressure HPI Narrative DERRICK BRADSHAW, is a 84-year-old male history of hypertension, GERD, BPH, diabetes, coronary artery disease with stenting and CABG who presented [facility] ED 06/15/2025 due to chest discomfort that started at 11 AM. Initially started with hiccups that were continuous and then developed the pressure. In the ED temp 98.1, heart rate 62, blood pressure 178/84, respiratory rate 22 and pulse ox 100% on room air. In the ED temp of 9 with a hemoglobin 13.2. Sodium 116 with no values since 2022 when that revealed normal sodium, potassium 5.4, BUN of 44 and creatinine 2.30 with no values available since 2022. Troponin found to be 57 and D-dimer 1.48. Chest x-ray with findings suggestive of mild linear scarring at the lung bases. Patient did not have CTA given his kidney dysfunction but with elevated D-dimer and chest pressure he was started on a heparin drip, also given IV fluids for his low sodium. Of note he was given Thorazine for hiccups which did initially resolve his hiccups and at that time the chest pressure went away. Hospitalist contacted for admission for hyponatremia and his elevated D-dimer and troponin with presenting complaint with chest pain. Patient evaluated at bedside, reports that for couple of days he has had a little bit of diarrhea off and on and a little bit of a dry cough and slight shortness of breath, today he developed hiccups and afterwards he developed the pressure feeling in the center of his chest that went away when hiccups resolved, hiccups resumed 30 to 60 minutes later were present on my evaluation but feeling in chest did not resume. Denies any fevers, no changes in urination, some chronic swelling in legs no changes. Thinks he might of had a recent new medication change but he is unsure what it was. No other new or acute complaints. Does note he follows with Dr. Roseanna Perez for nephrology for his kidneys. Also notes history of hyponatremia but he is not sure what the cause was, appears previously it was thought to be due to dehydration. [facility], [facility] Medical History Hypertension Home Medications ?Medication ?Instructions ?Recorded ?Last Taken ?Type amlodipine 5 mg tablet 5 mg PO DAILY 08/14/19 09/01/19 History aspirin 325 mg tablet 325 mg PO DAILY 08/14/19 09/01/19 History atorvastatin 40 mg tablet 40 mg PO QHS 08/14/19 08/31/19 History cinnamon bark 500 mg capsule 500 mg PO DAILY 08/14/19 09/01/19 History isosorbide mononitrate 60 mg 60 mg PO DAILY 08/14/19 09/01/19 History tablet,extended release 24 hr metformin 850 mg tablet 850 mg PO BID 08/14/19 09/01/19 History metoprolol tartrate 50 mg tablet 50 mg PO BID 08/14/19 09/01/19 History omega-3 fatty acids-fish oil 684 1 cap PO BID 08/14/19 09/01/19 History mg-1,200 mg capsule,delayed release omeprazole 40 mg capsule,delayed 40 mg PO DAILY ##30 08/14/19 09/01/19 Rx release vitamin A 3,000 mcg (10,000 unit) 10,000 unit PO DAILY 08/14/19 09/01/19 History capsule ascorbic acid (vitamin C) 1,000 mg 1,000 mg PO DAILY 09/01/19 08/31/19 History tablet cyanocobalamin (vitamin B-12) 1,000 mcg PO DAILY 09/01/19 08/31/19 History 1,000 mcg capsule magnesium oxide 400 mg (241.3 mg 400 mg PO DAILY 09/01/19 08/31/19 History magnesium) tablet tamsulosin 0.4 mg capsule 0.4 mg PO QHS 09/01/19 08/31/19 History turmeric 400 mg capsule 400 mg PO DAILY 09/01/19 08/31/19 History vitamin E 268 mg (400 unit) capsule 400 unit PO DAILY 09/01/19 09/01/19 History cephalexin 500 mg capsule 500 mg PO TID 7 days #21 caps 12/25/23 Unknown Rx Allergy/AdvReac Type Severity Reaction Status Date / Time alprazolam (From Xanax) AdvReac Other Verified 06/15/25 12:36 Surgical History History of coronary artery stent placement Hx of CABG Social History Smoking Status: Never smoker ROS ROS Narrative General: Denies fever/chills HENT: Denies headache, denies stuffy nose, denies sore throat EYES: Denies changes in vision Resp: Slight dry cough, slight shortness of breath for couple of days Cardiac: Had some pain in the center of his chest which resolved GI: Denies abdominal pain, has had a couple episodes of diarrhea over the past couple of days, denies nausea/vomiting : Denies changes in urination Extremity some chronic lower extremity swelling MSK: Denies weakness Neuro: Denies any numbness/tingling Heme: Denies any bleeding or bruising Skin: Denies rashes Psychiatric: No complaints voiced Vital Signs Vital Signs Vital Signs: 06/15/25 12:34 06/15/25 13:13 06/15/25 13:14 Temperature 98.1 F Temperature Source Oral Pulse Rate 62 Respiratory Rate 22 H Respiratory Effort Normal Blood Pressure 178/84 H Blood Pressure Mean 115 Pulse Ox 100 Oxygen Delivery Method Room Air Room Air Weight Weight: 86.4 kg Body Mass Index (BMI) 27.3 Physical Exam Narrative General: Alert, no apparent distress HEENT: Atraumatic, normocephalic Eyes: Anicteric, normal conjunctiva, extraocular movements grossly intact Neck: Supple Respiratory: No overt wheezes or rhonchi, normal respiratory effort Cardiovascular: Regular rate and rhythm GI: Soft, nontender, nondistended Extremities: No edema but patient presently has compression stockings on Musculoskeletal: Moving all extremities Neuro: No overt focal neurological deficits Skin: No rashes appreciated Psych: Cooperative Results Lab / Micro Data 06/15/25 13:13 06/15/25 13:13 Labs: Laboratory Results - last 24 hr 06/15/25 13:13: WBC 9.0, RBC 4.22 L, Hgb 13.2, Hct 36.9 L, MCV 87.4, MCH 31.3, MCHC 35.8, RDW Std Deviation 39.2, RDW Coeff of Shana 12.3, Plt Count 248, MPV 10.0, Immature Gran % (Auto) 0.600, Neut % (Auto) 76.0 H, Lymph % (Auto) 14.4 L, Mcdonough % (Auto) 7.9, Eos % (Auto) 0.9, Baso % (Auto) 0.2, Absolute Neuts (auto) 6.8, Absolute Lymphs (auto) 1.29, Nucleated RBC % 0, PT 13.2, INR 1.0, APTT 27.9, D-Dimer Quant (PE/DVT) 1.48 H*, Sodium 116 L*, Potassium 5.4 H, Chloride 81 L, Carbon Dioxide 19.9 L, Anion Gap 14, BUN 44 H, Creatinine 2.30 H, Estim Creat Clear Calc 25.57 L, Est GFR (MDRD) Non-Af 28 L, BUN/Creatinine Ratio 19.0, Glucose 194 H, Calcium 8.8, Troponin T High Sens 57 H* Imaging Radiology Impression Chest X-Ray 06/15/25 13:20 IMPRESSION: Hyperinflation. Prior CABG. Findings suggestive of mild linear scarring at the lung bases. Reading Location: [facility] Assessment & Plan Assessment/Plan (1) Hyponatremia: (2) Chest pain: PLAN: Plan # Hyponatremia -Unclear chronicity -Last sodium 137 but that was in 2022 -Does have a history of hyponatremia which was previously felt to be due to dehydration and improved with IV fluids -Sodium of 116 -Serum osmolality -Urine studies -Trend BMP -TSH - Lipid panel -proBNP -I's and O's -Patient does report diarrhea and previously had hyponatremia but improved with IV fluids, unclear if this is a cause or contributor -Was given IV fluids in the ED -Further treatment pending underlying etiology # Chest discomfort and hiccups - Patient developed hiccups and subsequently developed discomfort in the center of his chest that resolved when hiccups resolved and has not resumed even though hiccups have resumed -Troponin of 57, will cycle troponins -Did also have an elevated D-dimer but with kidney function patient was not a good candidate for a CTA -Patient started on heparin drip in ED -Order echocardiogram -Patient with abnormal chest x-ray with mild scarring at lung bases so unclear accuracy of V/Q scan would be -Maintain heparin drip for now as workup is obtained above - Hiccups could have a wide range of causes, will start IV PPI, patient did respond to Thorazine, will schedule small dose of gabapentin - If no improvement can consider further workup # Hyperkalemia -Patient received IV fluids in the ED -Will repeat BMP as above # ABHIJIT on CKD versus progression of CKD -Previous baseline creatinine around 1.8, in the ED 44 BUN and 2.3 creatinine -I's and O's -Urine studies -Management as above # Slight shortness of breath and diarrhea -Will check COVID and respiratory panel -Did receive some fluids in the ED -Had an elevated D-dimer but is not hypoxic -Is presently on heparin drip -Chest x-ray with mild increased linear markings at the lung bases suggestive of mild scarring with no focal infiltrate, given chest x-ray not completely normal unclear utility of a VQ scan #Hx of CAD -w/ previous stenting and CABG -Continue home medications #GERD -Change PPI to IV #Type 2 diabetes mellitus -Glucose checks and sliding scale insulin #Chronic BPH with obstruction -Continue home medications #Hypertension - Awaiting updated med rec #DVT ppx: Patient on heparin drip Francesca Burrell MD Charges/Coding Visit Charges Inpatient E&M: 96062 Init Hosp L2
[2025-06-15 16:22] LABS: Troponin T High Sens 2 HR 52 ng/L (<=22)
[2025-06-15 17:15] LABS: Cholesterol 105 mg/dL (<=200); Low Density Lipoprotein Calc. 56 mg/dL; Magnesium 2.0 mg/dL (1.5-2.2); Pro- Brain NATRIURETIC PEPTIDE 1109 pg/mL (<=1800); Triglycerides 36 mg/dL; Uric Acid 6.5 mg/dL (3.5-7.2); Very Low Density Lipoprotein 7 mg/dL (5-40); cholesterol:hdl ratio screen 2.49
[2025-06-15 17:18] LABS: Anion Gap 17 (5-15); BUN 42 mg/dL (4-19); BUN/Creat Ratio 18.9 RATIO (10-20); Calcium,Total 8.2 mg/dL (7.6-11.0); Carbon Dioxide 16.3 mmol/L (21.0-32.0); Chloride 83 mmol/L (98-108); Estimated Creatinine Clearance 26.49 ml/min (50-250); Glucose 183 mg/dL (70-99); Potassium 4.7 mmol/L (3.3-5.1)
--- NOTE | 2025-06-15 17:19 | ECHOD_ITS ---
Reason For Study Reason For Study: Chest Pain Procedure This was a 2D Doppler, Color Flow transthoracic echocardiogram. Exam performed portable in patient room. Left Ventricle Normal LV size. Mild concentric left ventricular hypertrophy. The left ventricular ejection fraction is 65 %. Stage 1 diastolic dysfunction. Right Ventricle Normal right ventricle. Atria The left atrium is moderately enlarged. Normal right atrium. Mitral Valve Moderate (2+) mitral valve insufficiency. Tricuspid Valve Mild tricuspid valve insufficiency. Normal pulmonary artery pressure. Aortic Valve Mild diffuse aortic valve calcification. Mild diffuse aortic valve thickening. Pulmonic Valve Trivial pulmonic valve insufficiency. Great Vessels Normal sized aortic root. Pericardium/Pleural No pericardial effusion. MMode/2D Measurements & Calculations LVIDd: 4.8 cm IVSd: 1.2 cm Ao root diam: 3.6 cm LVIDs: 3.0 cm LVPWd: 1.4 cm LA dimension: 4.7 cm RVDd: 3.5 cm FS: 37.0 % LAV(MOD-bp): 68.0 ml LVAd ap4: 34.4 cm2 SV(MOD-sp4): 74.5 ml LAV(MOD-bp) Indexed: 33.5 ml/m2 LVLd ap4: 8.3 cm SI(MOD-sp4): 36.7 ml/m2 LAV(MOD-sp2): 59.0 ml EDV(MOD-sp4): 117.6 ml LAV(MOD-sp4): 75.5 ml EDV(sp4-el): 120.5 ml LVAs ap4: 19.4 cm2 LVLs ap4: 7.3 cm ESV(MOD-sp4): 43.1 ml ESV(sp4-el): 43.7 ml EF(MOD-sp4): 63.4 % EF(sp4-el): 63.7 % SV(sp4-el): 76.7 ml LA A4 area: 23.4 cm2 LA dimension(2D): 5.0 cm RA A4 area: 14.8 cm2 TAPSE: 1.7 cm Time Measurements MV dec time: 0.14 sec Doppler Measurements & Calculations MV E max thomas: 79.5 cm/sec Lat Peak E' Thomas: 10.5 cm/sec Med Peak E' Thomas: 8.5 cm/sec MV A max thomas: 85.9 cm/sec E/E' lat: 7.6 E/E' med: 9.3 MV E/A: 0.92 MV V2 max: 111.6 cm/sec MV P1/2t max thomas: 91.2 cm/sec Ao V2 max: 151.3 cm/sec MV max P.0 mmHg MV P1/2t: 54.7 msec Ao max P.2 mmHg MV V2 mean: 57.3 cm/sec Ao V2 mean: 98.6 cm/sec MV mean P.5 mmHg MV dec slope: 487.9 cm/sec2 Ao mean P.5 mmHg MV V2 VTI: 34.3 cm MVA(P1/2t): 4.0 cm2 Ao V2 VTI: 34.7 cm AV (velocity ratio): 0.74 LV V1 max: 105.3 cm/sec PA V2 max: 122.6 cm/sec TR max thomas: 249.1 cm/sec LV V1 max P.4 mmHg PA V2 mean: 84.2 cm/sec TR max P.8 mmHg LV V1 mean P.5 mmHg LV V1 mean: 74.4 cm/sec LV V1 VTI: 25.6 cm ECHO/Echo Complete Interpretation Summary Mild concentric left ventricular hypertrophy. The left ventricular ejection fraction is 65 %. Stage 1 diastolic dysfunction. The left atrium is moderately enlarged. Moderate (2+) mitral valve insufficiency. Mild tricuspid valve insufficiency. Mildly calcified aortic valve leaflets. Aortic valve sclerosis without stenosis . Ordering Physician: Francesca Burrell Performed By: Chance Agee RCS
--- NOTE | 2025-06-15 17:29 | PCM.HOSP.N ---
Hospitalist Note Sodium unchanged despite fluids given in the ED, creatinine slightly improved, still awaiting urine studies however given lack of improvement with hydration we will hold off on further hydration while awaiting urine studies, continue to trend BMPs and given a decrease in bicarb and increase in gap will check lactic acid and VBG
[2025-06-15 18:21] LABS: Osmolality, Serum 267 mOsm/KG (280-301)
[2025-06-15 18:34] LABS: Hematocrit 34.6 % (40-54); Hemoglobin 12.5 g/dL (13.0-16.5); Immature Granulocytes Count 0.030 X10^3/uL (0.0-0.0); Mean Corp Hgb Conc 36.1 g/dL (32-36); Mean Corpuscular Volume 86.7 fL (80-94); Mean Platelet Vol. 10.3 fl (6.2-12.0); NRBC Flagged by Analyzer 0 % (0-5); Platelet Count 234 K/mm3 (150-450); RBC Distribution Width CV 12.2 % (11.6-14.6); RBC Distribution Width SD 38.6 fl (35.1-43.9); Red Blood Count 3.99 M/mm3 (4.6-6.2); White Blood Count 8.7 K/mm3 (4.4-11.0)
[2025-06-15 19:19] LABS: Troponin T High Sens 4 HR 46 ng/L (<=22)
[2025-06-15 20:52] LABS: Anion Gap 15 (5-15); BUN 41 mg/dL (4-19); BUN/Creat Ratio 19.2 RATIO (10-20); Calcium,Total 8.2 mg/dL (7.6-11.0); Carbon Dioxide 16.9 mmol/L (21.0-32.0); Chloride 84 mmol/L (98-108); Estimated Creatinine Clearance 27.74 ml/min (50-250); Glucose 152 mg/dL (70-99); Potassium 4.7 mmol/L (3.3-5.1)
[2025-06-15 21:11] LABS: CORTISOL PM 13.80 ug/dL (2.68-10.50)
[2025-06-15 21:36] LABS: Mucous, Urine 0 SEEN /hpf (<or=2+)
[2025-06-15 21:43] LABS: SITE Not entered; VBG BASE EXCESS -3 mmol/L (-1.0-3.5); VBG PO2 178 mmHg (25-40); VBG SO2 100 % (50-70); VBG TCO2 22 mmol/L (23-33)
[2025-06-15 21:52] LABS: Creatinine, Urine (random) 21.90 mg/dL (39.00-259.00); Urea Nitrogen, Urine 218 mg/dL (NO RANGE EST.)
[2025-06-15 21:53] LABS: Color, Urine Straw (Yellow); Glucose, Dipstick 1000 mg/dl (Normal); Ketone-Dipstick Negative (Negative); Leukocyte Esterase-Dipstick Negative /ul (Negative); Nitrite-Dipstick Negative (Negative); Occult Blood-Urine 25 /ul (Negative); Protein-Dipstick 100 mg/dl (Negative); Specific Gravity, Urine 1.010 (1.002-1.030); Urine Bilirubin Dipstick Negative (Negative)
[2025-06-15 22:03] LABS: Osmolality, Urine 347 mOsm/KG
[2025-06-15] MEDS: 0.9% Saline Lock 10 ML Syringe IV (22:15)
[2025-06-15 22:35] LABS: Partial Thromboplast Time 209.6 Seconds (24.1-36.2)
[2025-06-15 22:44] LABS: Red Blood Cells-Urine 0-5 SEEN /hpf (0-5); Squamous Epithelial Cells - UA 0-5 SEEN /hpf (0-5)
--- NOTE | 2025-06-15 22:54 | NURSING ---
pt came in for hyponatremia, Na 116. Pt w/ weakness and unsteadiness per aid with activity and ambulation, requiring 2 people assist. Primofit used tonight to promote dragan rest and provide safety d/t weakness.
[2025-06-16 00:37] LABS: Anion Gap 15 (5-15); Troponin T High Sensitivity 57 ng/L (<=22)
[2025-06-16 01:06] LABS: Anion Gap 15 (5-15); BUN 42 mg/dL (4-19); BUN/Creat Ratio 20.5 RATIO (10-20); Calcium,Total 8.1 mg/dL (7.6-11.0); Carbon Dioxide 16.8 mmol/L (21.0-32.0); Chloride 83 mmol/L (98-108); Estimated Creatinine Clearance 28.83 ml/min (50-250); Glucose 134 mg/dL (70-99); Potassium 4.3 mmol/L (3.3-5.1)
[2025-06-16 03:15] VITALS: BP 162/84; PULSE 63; RESP 18; TEMP 36.4; O2SAT 99
[2025-06-16 06:30] VITALS: BP 152/72; PULSE 60; RESP 16; TEMP 36.4; O2SAT 97
--- NOTE | 2025-06-16 07:11 | PN.HOSP_ITS ---
Reason for Visit Chief Complaint: Hiccups and chest pressure Subjective Subjective No issues earlier. Patient is a bit more confused than previous per discussion with son. On questioning oriented to self, time, POTUS and is able to tell me he is in [place] but cannot tell me he is in the hospital. Still has intermittent hiccups. No significant complaints otherwise. Objective Data Objective Data Vital Signs: Vital Signs Temp Pulse Resp BP Pulse Ox O2 Del Method 97.5 F L 63 18 162/84 H 99 Room Air 06/16/25 03:15 06/16/25 03:15 06/16/25 03:15 06/16/25 03:15 06/16/25 03:15 06/16/25 03:23 Oxygen Delivery Method Room Air Weight: 85 kg Body Mass Index (BMI) 26.9 Intake & Output: Intake and Output for Last 24 Hours 06/14/25 06/15/25 06/16/25 23:59 23:59 23:59 Intake Total 1099.02 / 1099.02 100 / 100 Output Total 1750 / 1750 Balance 1099.02 / 1099.02 -1650 / -1650 Lab / Micro Data 06/16/25 06:50 06/16/25 19:16 Labs: Laboratory Results - last 24 hr 06/15/25 13:13: WBC 9.0, RBC 4.22 L, Hgb 13.2, Hct 36.9 L, MCV 87.4, MCH 31.3, MCHC 35.8, RDW Std Deviation 39.2, RDW Coeff of Shana 12.3, Plt Count 248, MPV 10.0, Immature Gran % (Auto) 0.600, Neut % (Auto) 76.0 H, Lymph % (Auto) 14.4 L, Power % (Auto) 7.9, Eos % (Auto) 0.9, Baso % (Auto) 0.2, Absolute Neuts (auto) 6.8, Absolute Lymphs (auto) 1.29, Nucleated RBC % 0, PT 13.2, INR 1.0, APTT 27.9, D-Dimer Quant (PE/DVT) 1.48 H*, Sodium 116 L*, Potassium 5.4 H, Chloride 81 L, Carbon Dioxide 19.9 L, Anion Gap 15, BUN 44 H, Creatinine 2.30 H, Estim Creat Clear Calc 25.57 L, Est GFR (MDRD) Non-Af 28 L, BUN/Creatinine Ratio 19.0, Glucose 194 H, Calcium 8.8, Troponin T High Sens 57 H* 06/15/25 15:45: Sodium 116 L*, Potassium 4.7, Chloride 83 L, Carbon Dioxide 16.3 L, Anion Gap 17 H, BUN 42 H, Creatinine 2.22 H, Estim Creat Clear Calc 26.49 L, Est GFR (MDRD) Non-Af 29 L, BUN/Creatinine Ratio 18.9, Glucose 183 H, Uric Acid 6.5, Calcium 8.2, Magnesium 2.0, Troponin T Hi Sens 2 Hr 52 H, NT pro BNP II 1109, Triglycerides 36, Cholesterol 105, LDL Cholesterol, Calc 56, VLDL Cholesterol 7, HDL Cholesterol 42, Cholesterol/HDL Ratio 2.49, TSH 3.720 06/15/25 17:41: Lactic Acid 1.9 06/15/25 17:47: WBC 8.7, RBC 3.99 L, Hgb 12.5 L, Hct 34.6 L, MCV 86.7, MCH 31.3, MCHC 36.1 H, RDW Std Deviation 38.6, RDW Coeff of Shana 12.2, Plt Count 234, MPV 10.3, Immature Gran % (Auto) 0.300, Neut % (Auto) 76.9 H, Lymph % (Auto) 15.3 L, Power % (Auto) 7.0, Eos % (Auto) 0.3, Baso % (Auto) 0.2, Absolute Neuts (auto) 6.7, Absolute Lymphs (auto) 1.33, Nucleated RBC % 0, Serum Osmolality 267 L, T roponin T Hi Sens 4Hr 46 H 06/15/25 17:51: POC Glucose 155 H 06/15/25 17:59: Urine Color Straw, Urine Clarity Clear, Urine pH 7.0, Ur Specific [place] 1.010, Urine Protein 100 H, Urine Glucose (UA) 1000 H, Urine Ketones Negative, Urine Occult Blood 25 H, Urine Nitrite Negative, Urine Bilirubin Negative, Urine Urobilinogen Normal, Ur Leukocyte Esterase Negative, Urine RBC 0-5 SEEN, Urine WBC 0-5 SEEN, Ur Squamous Epith Cells 0-5 SEEN, Urine Bacteria 0 SEEN, Urine Mucus 0 SEEN, Urine Osmolality 347, Ur Random Sodium 83, Urine Creatinine 21.90 L, Urine Potassium 30.7, Urine Chloride 74, Urine Urea Nitrogen 218 06/15/25 19:50: Sodium 116 L*, Potassium 4.7, Chloride 84 L, Carbon Dioxide 16.9 L, Anion Gap 15, BUN 41 H, Creatinine 2.12 H, Estim Creat Clear Calc 27.74 L, E st GFR (MDRD) Non-Af 30 L, BUN/Creatinine Ratio 19.2, Glucose 152 H, Calcium 8.2, Cortisol PM Sample 13.80 H 06/15/25 21:23: APTT 209.6 H* 06/15/25 22:10: POC Glucose 135 H 06/15/25 23:58: Sodium 115 L*, Potassium 4.3, Chloride 83 L, Carbon Dioxide 16.8 L, Anion Gap 15, BUN 42 H, Creatinine 2.04 H, Estim Creat Clear Calc 28.83 L, E st GFR (MDRD) Non-Af 32 L, BUN/Creatinine Ratio 20.5 H, Glucose 134 H, Calcium 8.1 06/16/25 06:36: POC Glucose 138 H Micro: Microbiology 06/15/25 17:54 Mucosa - Nasopharyngeal Coronavirus COVID-19 PCR - Final 06/15/25 17:54 Mucosa - Nasopharyngeal Respiratory Panel (PCR) - Final ABG Data ABG results: ABG 06/15/25 21:38 Specimen Type ALVIN Sample Site Not entered VBG pH 7.48 H VBG pO2 178 H VBG HCO3 21 L VBG Total CO2 22 L VBG O2 Sat (Calc) 100 H VBG Base Excess -3 L POC Mix VBG pCO2 Pt Tmp 28.3 L O2 Delivery Device Not entered Radiography Diagnostic Testing: Radiology Impression Chest X-Ray 06/15/25 13:20 IMPRESSION: Hyperinflation. Prior CABG. Findings suggestive of mild linear scarring at the lung bases. Reading Location: [facility] Physical Exam Const alert, no apparent distress, average body habitus and well nourished Constitutional Narrative: Elderly, white male, sitting up in a chair at the bedside, son is at the bedside, patient appears comfortable, nontoxic, On questioning oriented to self, time, POTUS and is able to tell me he is in [place] but cannot tell me he is in the hospital, mild confusion HEENT head/scalp atraumatic and moist oral mucous membranes HEENT Narrative: Dentures in place Head and Scalp: normocephalic Resp normal respiratory effort, no retractions, no use of accessory muscles and clear to auscultation bilaterally Resp Narrative: Diminished diffusely but clear Auscultation: Negative for rales, rhonchi or wheezes Cardio regular rate, regular rhythm, S1 normal heart sound, S2 normal heart sound, no murmurs, no rub, no gallops and no clicks GI normal to inspection, nondistended, normoactive bowel sounds, soft to palpation and non-tender Extremity no clubbing, cyanosis or edema Extremity Narrative: 2+ pedal pulses Neuro moves all extremities and no focal motor deficits Neuro Narrative: Generalized weakness noted Speech: speech normal Psych Psych Narrative: Affect is slightly flat Assessment & Plan Assessment/Plan (1) Mineralocorticoid deficiency: (2) Acute hyperkalemia: (3) Acute hyponatremia: (4) Dysphagia: (5) Urinary retention: PLAN: Plan Hyponatremia - Appears to be fairly acute as labs from about 1-1/2 to 2 weeks ago sodium was 136 - Continue to check serial sodiums--> had a slight drop on his last 1 from previous and if this continues we will need to notify nephrology as patient may need to be transferred and started on 3% saline - Does have a history of hyponatremia which was previously felt to be due to dehydration and improved with IV fluids - Thus far per discussion with nephrology they feel that this is mineralocorticoid deficiency and he is on fludrocortisone however compliance is questionable - Start sodium tablets 1 g 3 times daily -Extra fludrocortisone was given by nephrology today - Continue fluid restriction - Was given IV fluids in the ED - Further treatment pending underlying etiology Troponin elevation - Patient developed hiccups and subsequently developed discomfort in the center of his chest that resolved when hiccups resolved and has not resumed even though hiccups have resumed - Initial troponin was 57 with delta of -Did also have an elevated D-dimer but with kidney function patient was not a good candidate for a CTA -Patient started on heparin drip in ED - Echocardiogram shows EF of 65% with stage I diastolic dysfunction, moderate left atrial enlargement, moderate mitral valve insufficiency, mild tricuspid valve insufficiency and mildly calcified aortic leaflets with sclerosis and no stenosis -Patient with abnormal chest x-ray with mild scarring at lung bases so unclear accuracy of V/Q scan would be -Maintain heparin drip for now as workup is obtained above D-dimer elevation - Patient has baseline renal dysfunction so not a candidate for CTA and VQ scan will not be helpful given chronic changes in his lungs - Check bilateral lower extremity Dopplers - will continue heparin drip for now - May be related to decreased clearance with renal dysfunction at baseline if Dopplers are negative will discontinue heparin drip as elevation was not marked Hiccups - Continue as needed therapy initiated on admission Hyperkalemia - Resolved CKD stage IV - Serum creatinine seems to be running between 1.9 and 2.1 -I's and O's - Nephrology is following - Avoid nephrotoxins Slight shortness of breath - Continue heparin drip for now -COVID/respiratory viral panel unremarkable -Chest x-ray with mild increased linear markings at the lung bases suggestive of mild scarring with no focal infiltrate, given chest x-ray not completely normal unclear utility of a VQ scan - Stable on room air currently - Patient is showing some signs of dysphagia with air-fluid levels on modified barium swallow may be related to some aspiration Dysphagia - MBS performed and concern for esophageal narrowing - GI consulted and pending evaluation - Would likely need EGD to assess for narrowing -GI consulted and discussed with Dr. Robins - Continue speech therapy - currently on full liquid diet but n.p.o. after midnight Hx of CAD/essential hypertension/hyperlipidemia -w/ previous stenting and CABG -continue home amlodipine -continue home aspirin - continue home atorvastatin - Continue home Jardiance - Continue home isosorbide mononitrate - Continue home losartan - continue metoprolol Acute urinary retention on chronic BPH with obstruction - Continue home Flomax but increase to his home dose of 0.8 from 0.4 - Patient required Recurrent Straight Cath so will place Jerome - Will try out in a day or 2 if still having retention will refer to urology after discharge with Jerome in place GERD - Continue PPI DM-2 -Glucose checks and sliding scale insulin - Hold home oral agents DVT prophylaxis - Continue heparin drip CODE STATUS - Full code Charges/Coding Visit Charges Inpatient E&M: 14327 Subs Hosp L2
[2025-06-16 07:27] LABS: Hematocrit 34.6 % (40-54); Hemoglobin 12.8 g/dL (13.0-16.5); Immature Granulocytes Count 0.050 X10^3/uL (0.0-0.0); Mean Corp Hgb Conc 37.0 g/dL (32-36); Mean Corpuscular Volume 85.6 fL (80-94); Mean Platelet Vol. 10.2 fl (6.2-12.0); NRBC Flagged by Analyzer 0 % (0-5); Platelet Count 225 K/mm3 (150-450); RBC Distribution Width CV 12.2 % (11.6-14.6); RBC Distribution Width SD 37.9 fl (35.1-43.9); Red Blood Count 4.04 M/mm3 (4.6-6.2); White Blood Count 7.6 K/mm3 (4.4-11.0)
[2025-06-16 07:53] LABS: Anion Gap 13 (5-15); BUN 39 mg/dL (4-19); BUN/Creat Ratio 19.7 RATIO (10-20); Calcium,Total 8.5 mg/dL (7.6-11.0); Carbon Dioxide 18.7 mmol/L (21.0-32.0); Chloride 84 mmol/L (98-108); Estimated Creatinine Clearance 30.00 ml/min (50-250); Glucose 119 mg/dL (70-99); Potassium 4.5 mmol/L (3.3-5.1)
[2025-06-16 08:13] LABS: Partial Thromboplast Time 81.5 Seconds (24.1-36.2)
[2025-06-16] MEDS: Magnesium Chloride 64 MG Delay Rel.Tablet 128 MG PO (08:41)
--- NOTE | 2025-06-16 09:03 | CASEMGMT ---
Dx: Hyponatremia, Chest Pain LACE: 2 6-Clicks: 23 Medical record reviewed and patient evaluated for identification of discharge planning needs. Based on this review, at this time criteria are not present to indicate a need for discharge planning. Will remain available to assist with discharge planning needs as identified or requested.
--- NOTE | 2025-06-16 10:56 | PCM.PN.BLA ---
Progress Note spoke to patient. reviewed outpatient records. looks like he follows with Dr Roseanna Perez. consult will be forwarded to Dr Magda Perez. notified hospitalist.
--- NOTE | 2025-06-16 10:56 | PCM.PN.BLA ---
Progress Note spoke to patient. reviewed outpatient records. looks like he follows with Dr Roseanna Perez. consult will be forwarded to Dr Magda Perez. notified hospitalist.
[2025-06-16 12:00] VITALS: BP 162/79; PULSE 60; RESP 16; TEMP 36.3; O2SAT 98
[2025-06-16 12:41] VITALS: PULSE 79
[2025-06-16] MEDS: Metoprolol(XL)Succ 100 MG Tablet PO (12:41)
[2025-06-16] MEDS: Pantoprazole Sodium 40 MG in 0.9% Normal Saline (100mL MB+) 100 ML 300 MG IV ×2 (12:42→21:50)
[2025-06-16] MEDS: LINAGLIPTIN 5 MG TABLET PO (12:43)
[2025-06-16 14:20] LABS: Anion Gap 13 (5-15); BUN 40 mg/dL (4-19); BUN/Creat Ratio 19.2 RATIO (10-20); Calcium,Total 8.4 mg/dL (7.6-11.0); Carbon Dioxide 19.0 mmol/L (21.0-32.0); Chloride 82 mmol/L (98-108); Estimated Creatinine Clearance 28.41 ml/min (50-250); Glucose 161 mg/dL (70-99); Potassium 4.9 mmol/L (3.3-5.1)
[2025-06-16 15:08] LABS: Partial Thromboplast Time 54.2 Seconds (24.1-36.2)
--- NOTE | 2025-06-16 15:28 | PCM.CONS.R ---
Assessment & Plan Assessment/Plan (1) Acute hyponatremia: PLAN: with edema suspect from fluid retention from urinary retention vs mineralocorticoid deficiency. Monitor with negative fluid balance. Unclear if he has been taking his florinef. BP stable. Urine sodium 83. Cortisol 13.8, TSH wnl. Edema improved with lund to CD. Sodium 114 to 116 on admit, 134 on 06/10/25 as outpt. Increase florinef to 0.2mg daily. (2) Acute hyperkalemia: PLAN: follow low K diet, holding potassium supplement. Mineralocorticoid deficiency vs due to urinary retention or both. TTKG <6 to suggest mineralocorticoid deficiency (3) Chest pain: PLAN: on heparin drip. Hx hiccups with esophageal stricture on swallow evaluation (4) Acute kidney injury: PLAN: Creatinine 2.8 on 06/10/25, 2.3 on admit 06/15, improved to 2.0 today with resolution of urinary retention with lund to CD (5) CKD stage 3 due to type 2 diabetes mellitus: PLAN: baseline creatinine 1.8 to 2.0 eGFR 30-24cc/min on ARB therapy, SGLT2 inhibitor (6) History of BPH: PLAN: on flomax at home. 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 Sodium low at 116, potassium 5.4. He has a history of CKD stage 3b due to diabetes, adrenal insufficiency on florinef. He was last seen in my office in June 2024 with stable sodium of 138, baseline creatinine of 1.8 to 2.0. He has a history of compliance adherence with his florinef in the past. He failed to f/u in my office in January 2025 with no recent labs. Upon review of [facility] labs, creatinine was 2.8 potassium 5.7 sodium 134 on 06/10/25. States has been eating bananas. Stopped taking his potassium supplement at home. Creatinine improved to 2.07 egfr 31cc/min potassium 4.9 after lund catheter insertion. Sodium remains low at 114 today. TSH normal. Cortisol 13.8. Urine sodium 83 urine osmolarity 347. He has a care provider that comes to the house 5 days a week for a few hours who assist with his medications. He denied trouble swallowing his pills at home. He had difficulty urinating with hesitancy. Lund catheter inserted with over 1L urine drained x2. He has BPH on flomax at home. He had increased leg edema treated with diuretics by pcp. Edema improved since hospitalized. He had a cookie swallow evaluation due to coughing with meals. This showed stricture. He denied food getting stuck in his chest. His friend at bedside takes him to breakfast and has not witnessed any choking with meals. He is unsteady on his feet today. He was given gabapentin for his hiccups that caused altered mental status. [facility] Medical History CAD (coronary artery disease) of artery bypass graft Diabetes mellitus BPH (benign prostatic hyperplasia) Hypertension Medical History no medical history Home Medications ?Medication ?Instructions ?Recorded ?Last Taken ?Type amlodipine 5 mg tablet 5 mg PO DAILY blood pressure 08/14/19 09/01/19 History atorvastatin 40 mg tablet 40 mg PO QHS cholesterol 08/14/19 08/31/19 History cinnamon bark 500 mg capsule 500 mg PO DAILY supplement 08/14/19 09/01/19 History isosorbide mononitrate 60 mg 60 mg PO 1200 heart 08/14/19 09/01/19 History tablet,extended release 24 hr omega-3 fatty acids-fish oil 684 1 cap PO BID supplement 08/14/19 09/01/19 History mg-1,200 mg capsule,delayed release ascorbic acid (vitamin C) 1,000 mg 1,000 mg PO DAILY supplement 09/01/19 08/31/19 History tablet cyanocobalamin (vitamin B-12) 1,000 mcg PO DAILY supplement 09/01/19 08/31/19 History 1,000 mcg capsule magnesium oxide 400 mg (241.3 mg 400 mg PO DAILY supplement 09/01/19 08/31/19 History magnesium) tablet tamsulosin 0.4 mg capsule 0.8 mg PO QHS as directed 09/01/19 08/31/19 History UBIDE Q10 50 mg PO 1200 supplement 06/15/25 Unknown History amlodipine 10 mg tablet 10 mg PO 1200 BLOOD PRESSURE 06/15/25 Unknown History ascorbic acid (vitamin C) 500 mg 500 mg PO DAILY supplement 06/15/25 Unknown History tablet (C-500) aspirin 81 mg tablet,delayed 81 mg PO 1200 DIRECTED 06/15/25 Unknown History release (Adult Aspirin Regimen) atorvastatin 80 mg tablet 80 mg PO QHS CHOLESTEROL 06/15/25 Unknown History calcitriol 0.25 mcg capsule 0.25 mcg PO .MWF supplement 06/15/25 Unknown History cinnamon bark 500 mg capsule 2,000 mg PO BID supplement 06/15/25 Unknown History (Cinnamon) empagliflozin 25 mg tablet 25 mg PO DAILY DIRECTED 06/15/25 Unknown History (Jardiance) fludrocortisone 0.1 mg tablet 0.1 mg PO 1200 DIRECTED 06/15/25 Unknown History glipizide 2.5 mg tablet, extended 2.5 mg PO DAILY DIABETES 06/15/25 Unknown History release 24 hr hydrochlorothiazide 25 mg tablet 25 mg PO 1200 DIRECTED 06/15/25 Unknown History losartan 100 mg tablet 100 mg PO DAILY DIRECTED 06/15/25 Unknown History metoprolol succinate 100 mg 100 mg PO DAILY heart/ blood 06/15/25 Unknown History tablet,extended release 24 hr pressure sertraline 50 mg tablet 50 mg PO DAILY as directed 06/15/25 Unknown History sitagliptin phosphate 50 mg tablet 50 mg PO 1200 DIRECTED 06/15/25 Unknown History (Januvia) tumeric 1 tab PO DAILY supplement 06/15/25 Unknown History vitamin A 2,400 mcg capsule 2,400 mcg PO DAILY supplement 06/15/25 Unknown History vitamin E 180 mg PO DAILY supplement 06/15/25 Unknown History Allergy/AdvReac Type Severity Reaction Status Date / Time alprazolam (From Xanax) AdvReac Other Verified 06/15/25 12:36 Surgical History Hx of CABG History of coronary artery stent placement Social History Smoking Status: Never smoker ROS Review of Systems ROS Unobtainable: other Details: poor historian Constitutional Constitutional: Reports weakness; Denies chills or fever(s) Eyes Eyes: Denies loss of vision ENT HEENT: Denies nasal congestion Cardiovascular Cardiovascular: Reports chest pain and edema Respiratory/Chest Respiratory/Chest: Denies dyspnea on exertion or shortness of breath at rest Gastrointestinal Gastrointestinal: Denies abdominal pain, diarrhea, hematemesis, nausea or vomiting Genitourinary Genitourinary: Reports change in urinary stream, difficulty urinating and urinary hesitancy; Denies dysuria or flank pain Musculoskeletal Musculoskeletal: Reports abnormal gait Integumentary Integumentary: Denies rash Neurologic Neurologic: Reports weakness; Denies syncope or tremor(s) Psychiatric Psychiatric: Denies anxiety Hematologic/Lymphatic Hematologic/Lymphatic: Reports easy bruising Physical Exam Const alert and oriented x3 Constitutional Narrative: poor historian HEENT normocephalic Cardio regular rate GI non-tender and non-distended Auscultation: normoactive bowel sounds Palpation: soft Bladder / Kidney Exam: catheter in place Extremity no clubbing, cyanosis or edema Extremity Narrative: generalized weakness Skin no rashes or lesions noted General Skin Exam: ecchymosis Neuro Sensorium / Orientation: awake and alert Psych cooperative Lab / Micro Data 06/17/25 04:41 06/17/25 14:07 Labs: Laboratory Results - last 24 hr 06/15/25 13:13: Sodium 116 L*, Anion Gap 15, Troponin T High Sens 57 H* 06/15/25 15:45: Sodium 116 L*, Potassium 4.7, Chloride 83 L, Carbon Dioxide 16.3 L, Anion Gap 17 H, BUN 42 H, Creatinine 2.22 H, Estim Creat Clear Calc 26.49 L, Est GFR (MDRD) Non-Af 29 L, BUN/Creatinine Ratio 18.9, Glucose 183 H, Uric Acid 6.5, Calcium 8.2, Magnesium 2.0, Troponin T Hi Sens 2 Hr 52 H, NT pro BNP II 1109, Triglycerides 36, Cholesterol 105, LDL Cholesterol, Calc 56, VLDL Cholesterol 7, HDL Cholesterol 42, Cholesterol/HDL Ratio 2.49, TSH 3.720 06/15/25 17:41: Lactic Acid 1.9 06/15/25 17:47: WBC 8.7, RBC 3.99 L, Hgb 12.5 L, Hct 34.6 L, MCV 86.7, MCH 31.3, MCHC 36.1 H, RDW Std Deviation 38.6, RDW Coeff of Shana 12.2, Plt Count 234, MPV 10.3, Immature Gran % (Auto) 0.300, Neut % (Auto) 76.9 H, Lymph % (Auto) 15.3 L, Bowie % (Auto) 7.0, Eos % (Auto) 0.3, Baso % (Auto) 0.2, Absolute Neuts (auto) 6.7, Absolute Lymphs (auto) 1.33, Nucleated RBC % 0, Serum Osmolality 267 L, Troponin T Hi Sens 4Hr 46 H 06/15/25 17:51: POC Glucose 155 H 06/15/25 17:59: Urine Color Straw, Urine Clarity Clear, Urine pH 7.0, Ur Specific Merrill 1.010, Urine Protein 100 H, Urine Glucose (UA) 1000 H, Urine Ketones Negative, Urine Occult Blood 25 H, Urine Nitrite Negative, Urine Bilirubin Negative, Urine Urobilinogen Normal, Ur Leukocyte Esterase Negative, Urine RBC 0-5 SEEN, Urine WBC 0-5 SEEN, Ur Squamous Epith Cells 0-5 SEEN, Urine Bacteria 0 SEEN, Urine Mucus 0 SEEN, Urine Osmolality 347, Ur Random Sodium 83, Urine Creatinine 21.90 L, Urine Potassium 30.7, Urine Chloride 74, Urine Urea Nitrogen 218 06/15/25 19:50: Sodium 116 L*, Potassium 4.7, Chloride 84 L, Carbon Dioxide 16.9 L, Anion Gap 15, BUN 41 H, Creatinine 2.12 H, Estim Creat Clear Calc 27.74 L, Est GFR (MDRD) Non-Af 30 L, BUN/Creatinine Ratio 19.2, Glucose 152 H, Calcium 8.2, Cortisol PM Sample 13.80 H 06/15/25 21:23: APTT 209.6 H* 06/15/25 22:10: POC Glucose 135 H 06/15/25 23:58: Sodium 115 L*, Potassium 4.3, Chloride 83 L, Carbon Dioxide 16.8 L, Anion Gap 15, BUN 42 H, Creatinine 2.04 H, Estim Creat Clear Calc 28.83 L, Est GFR (MDRD) Non-Af 32 L, BUN/Creatinine Ratio 20.5 H, Glucose 134 H, Calcium 8.1 06/16/25 06:36: POC Glucose 138 H 06/16/25 06:50: WBC 7.6, RBC 4.04 L, Hgb 12.8 L, Hct 34.6 L, MCV 85.6, MCH 31.7, MCHC 37.0 H, RDW Std Deviation 37.9, RDW Coeff of Shana 12.2, Plt Count 225, MPV 10.2, Immature Gran % (Auto) 0.700, Neut % (Auto) 72.7 H, Lymph % (Auto) 16.3 L, Bowie % (Auto) 9.1, Eos % (Auto) 0.9, Baso % (Auto) 0.3, Absolute Neuts (auto) 5.5, Absolute Lymphs (auto) 1.23, Nucleated RBC % 0, APTT 81.5 H, Sodium 115 L*, Potassium 4.5, Chloride 84 L, Carbon Dioxide 18.7 L, Anion Gap 13, BUN 39 H, Creatinine 1.96 H, Estim Creat Clear Calc 30.00 L, Est GFR (MDRD) Non-Af 34 L, BUN/Creatinine Ratio 19.7, Glucose 119 H, Calcium 8.5 06/16/25 12:25: POC Glucose 147 H 06/16/25 12:52: Sodium 114 L*, Potassium 4.9, Chloride 82 L, Carbon Dioxide 19.0 L, Anion Gap 13, BUN 40 H, Creatinine 2.07 H, Estim Creat Clear Calc 28.41 L, Est GFR (MDRD) Non-Af 31 L, BUN/Creatinine Ratio 19.2, Glucose 161 H, Calcium 8.4 06/16/25 14:42: APTT 54.2 H Micro: Microbiology 06/15/25 17:54 Mucosa - Nasopharyngeal Coronavirus COVID-19 PCR - Final 06/15/25 17:54 Mucosa - Nasopharyngeal Respiratory Panel (PCR) - Final ABG Data ABG results: ABG 06/15/25 21:38 Specimen Type ALVIN Sample Site Not entered VBG pH 7.48 H VBG pO2 178 H VBG HCO3 21 L VBG Total CO2 22 L VBG O2 Sat (Calc) 100 H VBG Base Excess -3 L POC Mix VBG pCO2 Pt Tmp 28.3 L O2 Delivery Device Not entered Imaging Radiology Impression Echocardiogram 06/15/25 17:19 Interpretation Summary Mild concentric left ventricular hypertrophy. The left ventricular ejection fraction is 65 %. Stage 1 diastolic dysfunction. The left atrium is moderately enlarged. Moderate (2+) mitral valve insufficiency. Mild tricuspid valve insufficiency. Mildly calcified aortic valve leaflets. Aortic valve sclerosis without stenosis. Ordering Physician: Francesca Burrell Performed By: Chance Agee RCS
[2025-06-16] MEDS: HEPARIN/D5w 25,000 UNITS 25,000 UNITS/250 ML IV.SOLN. 10 UNITS CONT INF (15:42)
--- NOTE | 2025-06-16 15:45 | SP.MBSS_ITS ---
Modified Barium Swallow Patient Information Study Date: 06/16/25 Study Time: 15:00 Direct Billable Minutes: 95 Total Minutes procedure & reportin Diagnosis: GERD K21.9; Dysphagia R13.10 Referring Physician: Sharmila Perez Reason for Referral: Assess swallow function, assess risk for aspiration, and determine recommendations for any necessary dysphagia interventions. Medical History: Per physician H&P, pt is a 84-year-old male history of hypertension, GERD, BPH, diabetes, coronary artery disease with stenting and CABG. Pt presented to [facility] ED 06/15/2025 w/ chest discomfort and hiccups starting day of admission. Chest x- ray with findings suggestive of mild linear scarring at the lung bases. Pt admitted for hyponatremia and elevated D-dimer and troponin with presenting complaint with chest pain. Pt also reported slight SOB and a dry cough the past couple of days. ST was consulted for dysphagia evaluation 06/16/2025 due to RN observing coughing at breakfast w/ turkey felix. RN removed tray from pt due to extent of coughing. BSE 06/16/2025 revealed throat clear 1X w/ po trials; otherwise, no overt s/s of aspiration w/ po trials and unremarkable oral [facility] exam. Unfortunately, he again did not tolerate lunch well. He had extensive coughing w/ a sandwich and RN alerted REFINERY SUPERINTENDENT. REFINERY SUPERINTENDENT recommended re-evaluation of his swallow function via this MBSS. Current Diet Ordered: Regular textures / Thin liquids Dentition: Natural Teeth Mental Status: Impaired (Per RN, some confusion at baseline) Respiratory Status: Oxygenating on Room Air Penetration-Aspiration Scale Penetration-Aspiration Scale: OBJECTIVE ASSESSMENT OF SWALLOW FUNCTION (QUANTITATIVE ? PER TRIAL): PENETRATION / ASPIRATION SCALE (MOSHER): 1 = does not enter airway 2 = enters airway/above vocal folds/ejected 3 = enters airway/above vocal folds/not ejected 4 = enters airway/contacts vocal folds/ejected 5 = enters airway/contacts vocal folds/not ejected 6 = enters airway/below vocal folds/ejected 7 = enters airway/below vocal folds/not ejected despite effort 8 = enters airway/below vocal folds/no effort VIDEOFLOROSCOPIC SCALE SCORE (MOSHER): Grade I = aspiration of material that has penetrated into the laryngeal vestibule, intact cough reflex Grade II = aspiration < 10 % of the bolus, intact cough reflex Grade III = aspiration of < 10 % of the bolus, reduced cough reflex or aspiration of > 10 % of the bolus, intact cough reflex Grade IV = aspiration of > 10 % of the bolus, reduced cough reflex Penetration-Aspiration Scale Score Thin Liquid via teaspoon: Result: 1= does not enter airway Thin Liquid via large single sip: cup: Result: 2= enter airway/above vocal folds/ejected (Initial PAS of 3, but complete ejection w/ independent use of multiple swallows) Comment: Esophageal screen - Retention throughout the middle and lower esophagus. Pudding via teaspoon: Result: 1= does not enter airway Comment: Esophageal screen - Mild retention in the upper esophagus. Moderate retention in the middle and lower esophagus. Thin Liquid via single sip: straw: Result: 1= does not enter airway Comment: Esophageal screen - Retention in the middle and lower esophagus w/ retrograde flow to the upper esophagus. Barium appeared suspended in some other content in the esophagus, possibly food from meals earlier in the day. 1/2 Cookie: Result: 1= does not enter airway Comment: Esophageal screen - Majority of previous trial had cleared (mild retention still in the lower esophagus). Retention of cookie throughout the middle and lower esophagus. Thin Liquid via small single sip: cup: Result: 3= enters airways/above vocal folds/not ejected Comment: Esophageal screen - Retention in the middle and lower esophagus w/ retrograde flow to the upper esophagus. Liquid wash did not appear to clear retention of cookie. Thin Liquid via small single sip: cup Effortful swallow: Result: 2= enter airway/above vocal folds/ejected Comment: Esophageal screen - Esophageal screen - Retention in the middle and lower esophagus w/ retrograde flow to the upper esophagus. Liquid wash again did not appear to clear retention of cookie. Thin Liquid via small single sip: cup Effortful swallow Trial 2: Result: 1= does not enter airway Oral Phase Labial Seal: Interlabial escape, no progression to anterior lip Tongue Control During Bolus Hold: Posterior escape of less than half of bolus Bolus Preparation/Mastication: Timely and efficient chewing and mashing Bolus Transport/Lingual Motion: Delayed initiation of tongue motion Oral Residue: Majority of bolus remaining (piecemeal deglutition of large cup sip) Pharyngeal Phase Initiation of Pharyngeal Swallow: Bolus head in pyriforms Soft Palate Elevation: Trace column of contrast/air between soft palate and pharyngeal wall Laryngeal Elevation: Partial superior movement thyroid cart/partial apprx aryt- epig petiole Anterior Hyoid Excursion: Partial anterior movement Epiglottic Movement: Complete inversion Laryngeal Vestibule Closure at Height of Swallow: Incomplete; narrow column of air/contrast in laryngeal vestibule Pharyngeal Stripping Wave: Present - complete Pharyngoesophageal Segment Opening: Parital distension and partial duration; parital obstruction of flow Tongue Base Retraction: Narrow column of contrast between tongue base & post. pharyngeal wall Pharyngeal Residue: Trace residue within or on pharyngeal structures Esophageal Phase Esophageal Clearance: Esophageal retention w/ retrograde flow below pharyngoesophageal seg. Diagnosis/Impression Diagnosis: Esophageal dysphagia R13.14; Mild oropharyngeal dysphagia R13.12 MBS Impressions: The oral phase is primarily marked by... -Large cup sip resulted in decreased bolus control and loss of <1/2 of the trial to the pyriform sinuses. -Delayed tongue motion for A-P transport. -Piecemeal deglutition w/ large sips. The pharyngeal phase is primarily marked by... -Mildly decreased TB retraction w/ some liquid trials, but overall good pharyngeal motility. -Mildly decreased airway closure w/ laryngeal penetration of thin liquids via small cup sip w/o complete ejection. No aspiration. Small sips and effortful swallows decreased risk for aspiration. The esophageal phase is primarily marked by... -Esophageal retention of liquids, pudding, and cookie in the middle and lower esophagus. When provided liquid washes for pudding and cookie, pt had retrograde flow to the upper esophagus. He is at high risk for reflux aspiration. Recommendations Diet: Thin Liquids (FULL LIQUIDS UNTIL GI CONSULT) Compensatory Strategies: Small Bites, Small Sips (Effortful/hard swallows), Slow Rate (Sips 1 at a time), Alternate bites/solids and sips/liquids (1:1 Ratio) and Sitting upright (During and 60min after meals) Supervision: 1:1 Direct Supervision Recommend Repeat Modified Barium Swallow: TBD Need for Skilled Speech Therapy Services: Yes Comment: ST POC TO INCLUDE... -Train the patient in use of strategies to decrease risk for aspiration and reflux aspiration. -Ongoing assessment of diet tolerance of recommended textures. -Train the patient in oropharyngeal exercise program to improve bolus control, swallow onset, and airway closure during the swallow (lingual resistance, Michael, effortful, CTAR). GOALS TO BE ADDED TO ACUTE DYSPHAGIA POC... (LTG 1.0) The patient will consume least restrictive diet textures without overt s/s of aspiration with 90% acc with minimal verbal cues to encourage use of strategies to decrease risk for aspiration and reflux aspiration. (STG 1.1) The patient will complete an oropharyngeal exercise program X10-15 reps, 3-5X/day with minimal verbal cues to improve bolus control, swallow onset, and airway closure during the swallow (lingual resistance, Michael, effortful, CTAR). Recommended Referrals: GI Consult Education Completed: 1. Described result of evaluation., 2. Pt understands evaluation & agrees with goals and treatment plan. and 7. Pt requires further education on strategies & risks. Status Active ST Patient: Active Contact Information [facility] Speech Therapy:: Laura Cuenca M.A. [facility]-REFINERY SUPERINTENDENT Speech-Language Pathologist [facility] [address] [place] [address] [email or web address] [phone]
--- NOTE | 2025-06-16 15:45 | SP.MBSS_ITS ---
Modified Barium Swallow Patient Information Study Date: 06/16/25 Study Time: 15:00 Direct Billable Minutes: 95 Total Minutes procedure & reportin Diagnosis: GERD K21.9; Dysphagia R13.10 Referring Physician: Sharmila Perez Reason for Referral: Assess swallow function, assess risk for aspiration, and determine recommendations for any necessary dysphagia interventions. Medical History: Per physician H&P, pt is a 84-year-old male history of hypertension, GERD, BPH, diabetes, coronary artery disease with stenting and CABG. Pt presented to [facility] ED 06/15/2025 w/ chest discomfort and hiccups starting day of admission. Chest x- ray with findings suggestive of mild linear scarring at the lung bases. Pt admitted for hyponatremia and elevated D-dimer and troponin with presenting complaint with chest pain. Pt also reported slight SOB and a dry cough the past couple of days. ST was consulted for dysphagia evaluation 06/16/2025 due to RN observing coughing at breakfast w/ turkey felix. RN removed tray from pt due to extent of coughing. BSE 06/16/2025 revealed throat clear 1X w/ po trials; otherwise, no overt s/s of aspiration w/ po trials and unremarkable oral [facility] exam. Unfortunately, he again did not tolerate lunch well. He had extensive coughing w/ a sandwich and RN alerted WAREHOUSE PULLER. WAREHOUSE PULLER recommended re-evaluation of his swallow function via this MBSS. Current Diet Ordered: Regular textures / Thin liquids Dentition: Natural Teeth Mental Status: Impaired (Per RN, some confusion at baseline) Respiratory Status: Oxygenating on Room Air Penetration-Aspiration Scale Penetration-Aspiration Scale: OBJECTIVE ASSESSMENT OF SWALLOW FUNCTION (QUANTITATIVE ? PER TRIAL): PENETRATION / ASPIRATION SCALE (MOSHER): 1 = does not enter airway 2 = enters airway/above vocal folds/ejected 3 = enters airway/above vocal folds/not ejected 4 = enters airway/contacts vocal folds/ejected 5 = enters airway/contacts vocal folds/not ejected 6 = enters airway/below vocal folds/ejected 7 = enters airway/below vocal folds/not ejected despite effort 8 = enters airway/below vocal folds/no effort VIDEOFLOROSCOPIC SCALE SCORE (MOSHER): Grade I = aspiration of material that has penetrated into the laryngeal vestibule, intact cough reflex Grade II = aspiration < 10 % of the bolus, intact cough reflex Grade III = aspiration of < 10 % of the bolus, reduced cough reflex or aspiration of > 10 % of the bolus, intact cough reflex Grade IV = aspiration of > 10 % of the bolus, reduced cough reflex Penetration-Aspiration Scale Score Thin Liquid via teaspoon: Result: 1= does not enter airway Thin Liquid via large single sip: cup: Result: 2= enter airway/above vocal folds/ejected (Initial PAS of 3, but complete ejection w/ independent use of multiple swallows) Comment: Esophageal screen - Retention throughout the middle and lower esophagus. Pudding via teaspoon: Result: 1= does not enter airway Comment: Esophageal screen - Mild retention in the upper esophagus. Moderate retention in the middle and lower esophagus. Thin Liquid via single sip: straw: Result: 1= does not enter airway Comment: Esophageal screen - Retention in the middle and lower esophagus w/ retrograde flow to the upper esophagus. Barium appeared suspended in some other content in the esophagus, possibly food from meals earlier in the day. 1/2 Cookie: Result: 1= does not enter airway Comment: Esophageal screen - Majority of previous trial had cleared (mild retention still in the lower esophagus). Retention of cookie throughout the middle and lower esophagus. Thin Liquid via small single sip: cup: Result: 3= enters airways/above vocal folds/not ejected Comment: Esophageal screen - Retention in the middle and lower esophagus w/ retrograde flow to the upper esophagus. Liquid wash did not appear to clear retention of cookie. Thin Liquid via small single sip: cup Effortful swallow: Result: 2= enter airway/above vocal folds/ejected Comment: Esophageal screen - Esophageal screen - Retention in the middle and lower esophagus w/ retrograde flow to the upper esophagus. Liquid wash again did not appear to clear retention of cookie. Thin Liquid via small single sip: cup Effortful swallow Trial 2: Result: 1= does not enter airway Oral Phase Labial Seal: Interlabial escape, no progression to anterior lip Tongue Control During Bolus Hold: Posterior escape of less than half of bolus Bolus Preparation/Mastication: Timely and efficient chewing and mashing Bolus Transport/Lingual Motion: Delayed initiation of tongue motion Oral Residue: Majority of bolus remaining (piecemeal deglutition of large cup sip) Pharyngeal Phase Initiation of Pharyngeal Swallow: Bolus head in pyriforms Soft Palate Elevation: Trace column of contrast/air between soft palate and pharyngeal wall Laryngeal Elevation: Partial superior movement thyroid cart/partial apprx aryt- epig petiole Anterior Hyoid Excursion: Partial anterior movement Epiglottic Movement: Complete inversion Laryngeal Vestibule Closure at Height of Swallow: Incomplete; narrow column of air/contrast in laryngeal vestibule Pharyngeal Stripping Wave: Present - complete Pharyngoesophageal Segment Opening: Parital distension and partial duration; parital obstruction of flow Tongue Base Retraction: Narrow column of contrast between tongue base & post. pharyngeal wall Pharyngeal Residue: Trace residue within or on pharyngeal structures Esophageal Phase Esophageal Clearance: Esophageal retention w/ retrograde flow below pharyngoesophageal seg. Diagnosis/Impression Diagnosis: Esophageal dysphagia R13.14; Mild oropharyngeal dysphagia R13.12 MBS Impressions: The oral phase is primarily marked by... -Large cup sip resulted in decreased bolus control and loss of <1/2 of the trial to the pyriform sinuses. -Delayed tongue motion for A-P transport. -Piecemeal deglutition w/ large sips. The pharyngeal phase is primarily marked by... -Mildly decreased TB retraction w/ some liquid trials, but overall good pharyngeal motility. -Mildly decreased airway closure w/ laryngeal penetration of thin liquids via small cup sip w/o complete ejection. No aspiration. Small sips and effortful swallows decreased risk for aspiration. The esophageal phase is primarily marked by... -Esophageal retention of liquids, pudding, and cookie in the middle and lower esophagus. When provided liquid washes for pudding and cookie, pt had retrograde flow to the upper esophagus. He is at high risk for reflux aspiration. Recommendations Diet: Thin Liquids (FULL LIQUIDS UNTIL GI CONSULT) Compensatory Strategies: Small Bites, Small Sips (Effortful/hard swallows), Slow Rate (Sips 1 at a time), Alternate bites/solids and sips/liquids (1:1 Ratio) and Sitting upright (During and 60min after meals) Supervision: 1:1 Direct Supervision Recommend Repeat Modified Barium Swallow: TBD Need for Skilled Speech Therapy Services: Yes Comment: ST POC TO INCLUDE... -Train the patient in use of strategies to decrease risk for aspiration and reflux aspiration. -Ongoing assessment of diet tolerance of recommended textures. -Train the patient in oropharyngeal exercise program to improve bolus control, swallow onset, and airway closure during the swallow (lingual resistance, Michael, effortful, CTAR). GOALS TO BE ADDED TO ACUTE DYSPHAGIA POC... (LTG 1.0) The patient will consume least restrictive diet textures without overt s/s of aspiration with 90% acc with minimal verbal cues to encourage use of strategies to decrease risk for aspiration and reflux aspiration. (STG 1.1) The patient will complete an oropharyngeal exercise program X10-15 reps, 3-5X/day with minimal verbal cues to improve bolus control, swallow onset, and airway closure during the swallow (lingual resistance, Michael, effortful, CTAR). Recommended Referrals: GI Consult Education Completed: 1. Described result of evaluation., 2. Pt understands evaluation & agrees with goals and treatment plan. and 7. Pt requires further education on strategies & risks. Status Active ST Patient: Active Contact Information [facility] Speech Therapy:: Laura Cuenca M.A. [facility] Speech-Language Pathologist [facility] [address] [place] [address] [email or web address] [phone]
[2025-06-16 18:00] VITALS: BP 116/67; PULSE 55; RESP 17; TEMP 36.4; O2SAT 97
[2025-06-16 20:27] LABS: Anion Gap 14 (5-15); BUN 40 mg/dL (4-19); BUN/Creat Ratio 19.3 RATIO (10-20); Calcium,Total 8.3 mg/dL (7.6-11.0); Carbon Dioxide 16.1 mmol/L (21.0-32.0); Chloride 81 mmol/L (98-108); Estimated Creatinine Clearance 28.55 ml/min (50-250); Glucose 141 mg/dL (70-99); Potassium 4.8 mmol/L (3.3-5.1)
[2025-06-16 21:43] VITALS: BP 148/79; PULSE 60; RESP 17; TEMP 36.4; O2SAT 99
--- NOTE | 2025-06-16 21:46 | VDLE_ITS ---
Reason For Study Reason For Study: Elevated D Dimer RIGHT LEFT GSV is normal. GSV is normal. CFV is compressible, spontaneous, phasic, competent CFV is compressible, spontaneous, phasic, competent, and demonstrates normal augmentation. and demonstrates normal augmentation. FV is compressible, spontaneous, phasic, competent FV is compressible, spontaneous, phasic, competent and demonstrates normal augmentation. and demonstrates normal augmentation. POP V is compressible, spontaneous, phasic, competent POP V is compressible, spontaneous, phasic, competent and demonstrates normal augmentation. and demonstrates normal augmentation. T/P Trunk is compressible. T/P Trunk is compressible. PTV is compressible. PTV is compressible. RT PerV is compressible. LT PerV is compressible. Procedure This is a venous duplex using B-mode, color flow and spectral Doppler. Exam performed portable in patient room. The exam was diagnostic. A preliminary report was called and/or faxed to MANAGER DRILLING. VL/Venous Duplex US - Jatinder Extrem Interpretation Summary Deep veins of the lower extremities are bilaterally patent and compressible seg mentally. There is no evidence of deep vein thrombosis on either side. Valvular competence appears intact within the p roximal deep venous systems bilaterally. The great saphenous veins appear bilaterally patent and compressible segmentall y. Ordering Physician: Sharmila Perez Performed By: Samuel Pineda RVT
--- NOTE | 2025-06-16 21:46 | VDLE_ITS ---
Reason For Study Reason For Study: Elevated D Dimer RIGHT LEFT GSV is normal. GSV is normal. CFV is compressible, spontaneous, phasic, competent CFV is compressible, spontaneous, phasic, competent, and demonstrates normal augmentation. and demonstrates normal augmentation. FV is compressible, spontaneous, phasic, competent FV is compressible, spontaneous, phasic, competent and demonstrates normal augmentation. and demonstrates normal augmentation. POP V is compressible, spontaneous, phasic, competent POP V is compressible, spontaneous, phasic, competent and demonstrates normal augmentation. and demonstrates normal augmentation. T/P Trunk is compressible. T/P Trunk is compressible. PTV is compressible. PTV is compressible. RT PerV is compressible. LT PerV is compressible. Procedure This is a venous duplex using B-mode, color flow and spectral Doppler. Exam performed portable in patient room. The exam was diagnostic. A preliminary report was called and/or faxed to TECHNICAL DOCUMENT WRITER. VL/Venous Duplex US - Jatinder Extrem Interpretation Summary Deep veins of the lower extremities are bilaterally patent and compressible seg mentally. There is no evidence of deep vein thrombosis on either side. Valvular competence appears intact within the p roximal deep venous systems bilaterally. The great saphenous veins appear bilaterally patent and compressible segmentall y. Ordering Physician: Sharmila Perez Performed By: Samuel Pineda RVT
[2025-06-16] MEDS: 0.9% Saline Lock 10 ML Syringe IV (21:49)
[2025-06-16] MEDS: MELATONIN 10 MG TABLET PO (22:41)
[2025-06-16 23:00] LABS: Partial Thromboplast Time 131.0 Seconds (24.1-36.2)
[2025-06-16 23:05] LABS: Anion Gap 15 (5-15); BUN 41 mg/dL (4-19); BUN/Creat Ratio 19.9 RATIO (10-20); Calcium,Total 8.2 mg/dL (7.6-11.0); Carbon Dioxide 15.1 mmol/L (21.0-32.0); Chloride 81 mmol/L (98-108); Estimated Creatinine Clearance 28.27 ml/min (50-250); Glucose 124 mg/dL (70-99); Potassium 4.4 mmol/L (3.3-5.1)
[2025-06-17] VITALS (12 sets, daily range): BP systolic 105–144; BP diastolic 56–93; PULSE 54–62; RESP 14–18; TEMP 36.3–36.7; O2SAT 95–99; BMI 26.9
--- NOTE | 2025-06-17 00:43 | PCM.HOSP.N ---
Hospitalist Note PTT supratherapeutic at 131 from heparin gtt, heparin to be restarted at 0100; per nrsg, pt is to have an EGD with esophageal dilation this AM for stricture but he is not on the endo schedule. Heparin placed on HOLD. Pt has no c/o CP, nrsg has concerns with his confusion and frequent bed exit alarms. Dopplers for BLE scheduled today.
[2025-06-17 05:54] LABS: Hematocrit 28.4 % (40-54); Hemoglobin 10.5 g/dL (13.0-16.5); Mean Corp Hgb Conc 37.0 g/dL (32-36); Mean Corpuscular Volume 84.8 fL (80-94); Mean Platelet Vol. 10.7 fl (6.2-12.0); Platelet Count 218 K/mm3 (150-450); RBC Distribution Width CV 12.4 % (11.6-14.6); RBC Distribution Width SD 37.3 fl (35.1-43.9); Red Blood Count 3.35 M/mm3 (4.6-6.2); White Blood Count 8.2 K/mm3 (4.4-11.0)
[2025-06-17 06:08] LABS: Magnesium 2.0 mg/dL (1.5-2.2)
[2025-06-17 06:22] LABS: Anion Gap 17 (5-15); BUN 40 mg/dL (4-19); BUN/Creat Ratio 19.8 RATIO (10-20); Calcium,Total 8.1 mg/dL (7.6-11.0); Carbon Dioxide 12.7 mmol/L (21.0-32.0); Chloride 85 mmol/L (98-108); Estimated Creatinine Clearance 28.97 ml/min (50-250); Glucose 97 mg/dL (70-99); Potassium 4.1 mmol/L (3.3-5.1)
[2025-06-17 06:37] LABS: Prothrombin Time (Protime)PT. 14.9 SECONDS (11.7-14.9)
[2025-06-17 06:38] LABS: Partial Thromboplast Time 41.4 Seconds (24.1-36.2)
--- NOTE | 2025-06-17 07:28 | PN.HOSP_ITS ---
Reason for Visit Chief Complaint: Hiccups and chest pressure Subjective Subjective No issues overnight. Sodium continues to trend up with increasing mineralocorticoid. Went for EGD and treatment was rendered. Plan is for SNF at discharge and patient is amenable Objective Data Objective Data Vital Signs: Vital Signs Temp Pulse Resp BP Pulse Ox O2 Del Method 97.7 F L 62 17 133/93 H 98 Room Air 06/17/25 06:20 06/17/25 06:20 06/17/25 06:20 06/17/25 06:20 06/17/25 06:20 06/17/25 06:20 Oxygen Delivery Method Room Air Weight: 85 kg Body Mass Index (BMI) 26.9 Intake & Output: Intake and Output for Last 24 Hours 06/15/25 06/16/25 06/17/25 23:59 23:59 23:59 Intake Total 1099.02 / 1099.02 994.73 / 1114.73 220 / 220 Output Total 3250 / 3550 1550 / 1550 Balance 1099.02 / 1099.02 -2255.27 / -2435.27 -1330 / -1330 Lab / Micro Data 06/17/25 04:41 06/17/25 14:07 Labs: Laboratory Results - last 24 hr 06/16/25 06:50: APTT 81.5 H, Sodium 115 L*, Potassium 4.5, Chloride 84 L, Carbon Dioxide 18.7 L, Anion Gap 13, BUN 39 H, Creatinine 1.96 H, Estim Creat Clear Calc 30.00 L, Est GFR (MDRD) Non-Af 34 L, BUN/Creatinine Ratio 19.7, Glucose 119 H, Calcium 8.5 06/16/25 12:25: POC Glucose 147 H 06/16/25 12:52: Sodium 114 L*, Potassium 4.9, Chloride 82 L, Carbon Dioxide 19.0 L, Anion Gap 13, BUN 40 H, Creatinine 2.07 H, Estim Creat Clear Calc 28.41 L, E st GFR (MDRD) Non-Af 31 L, BUN/Creatinine Ratio 19.2, Glucose 161 H, Calcium 8.4 06/16/25 14:42: APTT 54.2 H 06/16/25 16:30: POC Glucose 194 H 06/16/25 19:16: Sodium 111 L*, Potassium 4.8, Chloride 81 L, Carbon Dioxide 16.1 L, Anion Gap 14, BUN 40 H, Creatinine 2.06 H, Estim Creat Clear Calc 28.55 L, E st GFR (MDRD) Non-Af 32 L, BUN/Creatinine Ratio 19.3, Glucose 141 H, Calcium 8.3 06/16/25 21:38: APTT 131.0 H*, Sodium 112 L*, Potassium 4.4, Chloride 81 L, C arbon Dioxide 15.1 L, Anion Gap 15, BUN 41 H, Creatinine 2.08 H, Estim Creat Clear Calc 28.27 L, Est GFR (MDRD) Non-Af 31 L, BUN/Creatinine Ratio 19.9, G lucose 124 H, Calcium 8.2 06/16/25 21:54: POC Glucose 122 H 06/17/25 04:41: WBC 8.2, RBC 3.35 L, Hgb 10.5 L, Hct 28.4 L, MCV 84.8, MCH 31.3, MCHC 37.0 H, RDW Std Deviation 37.3, RDW Coeff of Shana 12.4, Plt Count 218, MPV 10.7, Sodium 115 L*, Potassium 4.1, Chloride 85 L, Carbon Dioxide 12.7 L, Anion Gap 17 H, BUN 40 H, Creatinine 2.03 H, Estim Creat Clear Calc 28.97 L, Est GFR (MDRD) Non-Af 32 L, BUN/Creatinine Ratio 19.8, Glucose 97, Calcium 8.1, Phosphorus 4.4, Magnesium 2.0 06/17/25 06:10: PT 14.9, INR 1.1, APTT 41.4 H 06/17/25 06:24: POC Glucose 126 H Micro: Microbiology 06/15/25 17:54 Mucosa - Nasopharyngeal Coronavirus COVID-19 PCR - Final 06/15/25 17:54 Mucosa - Nasopharyngeal Respiratory Panel (PCR) - Final Radiography Diagnostic Testing: Radiology Impression Echocardiogram 06/15/25 17:19 Interpretation Summary Mild concentric left ventricular hypertrophy. The left ventricular ejection fraction is 65 %. Stage 1 diastolic dysfunction. The left atrium is moderately enlarged. Moderate (2+) mitral valve insufficiency. Mild tricuspid valve insufficiency. Mildly calcified aortic valve leaflets. Aortic valve sclerosis without stenosis. Ordering Physician: Francesca Burrell Performed By: Chance Agee RCS Physical Exam Const alert, oriented x3, no apparent distress and well nourished Constitutional Narrative: Elderly, white male, sitting up in bed, family at bedside, patient is comfortable, nontoxic, A and O x 3 today, appears somewhat chronically frail HEENT head/scalp atraumatic and moist oral mucous membranes HEENT Narrative: Mallampati 3, no thrush Head and Scalp: normocephalic Resp normal respiratory effort, no retractions, no use of accessory muscles and clear to auscultation bilaterally Resp Narrative: Diminished diffusely but clear Auscultation: Negative for rales, rhonchi or wheezes Cardio regular rate, regular rhythm, S1 normal heart sound, S2 normal heart sound, no murmurs, no rub, no gallops and no clicks GI normal to inspection, nondistended, normoactive bowel sounds, soft to palpation and non-tender Extremity no clubbing, cyanosis or edema Extremity Narrative: 2+ pedal pulses Neuro moves all extremities and no focal motor deficits Neuro Narrative: Generalized weakness noted Speech: speech normal Psych Psych Narrative: Affect remains slightly flat, eye contact is good and patient interacts appropriately Assessment & Plan Assessment/Plan (1) Mineralocorticoid deficiency: (2) Acute hyperkalemia: (3) Acute hyponatremia: (4) Dysphagia: (5) Urinary retention: PLAN: Plan Hyponatremia secondary to mineralocorticoid deficiency - Appears to be fairly acute as labs from about 1-1/2 to 2 weeks ago sodium was 136 - Patient on fludrocortisone at baseline but does not appear to be taking it - Continue sodium tablets 1 g 3 times daily - Increase fludrocortisone to 0.2 mg daily - Continue fluid restriction - Nephrology is following Troponin elevation - Initial troponin was 57 with delta of -Did also have an elevated D-dimer but with kidney function patient was not a good candidate for a CTA -Patient started on heparin drip in ED - Echocardiogram shows EF of 65% with stage I diastolic dysfunction, moderate left atrial enlargement, moderate mitral valve insufficiency, mild tricuspid valve insufficiency and mildly calcified aortic leaflets with sclerosis and no stenosis -Patient with abnormal chest x-ray with mild scarring at lung bases so unclear accuracy of V/Q scan would be -Lower extremity Dopplers are pending -Maintain heparin drip for now as workup is obtained above D-dimer elevation - Patient has baseline renal dysfunction so not a candidate for CTA and VQ scan will not be helpful given chronic changes in his lungs - Check bilateral lower extremity Dopplers - will continue heparin drip for now but discontinue if lower extremity Dopplers are unremarkable - Elevation is likely related to renal dysfunction and if Dopplers are negative discontinue heparin drip Hiccups - Resolved CKD stage IV - Serum creatinine seems to be running between 1.9 and 2.1 and currently remains at baseline - I's and O's - Nephrology is following - Avoid nephrotoxins Anion gap metabolic acidosis - Evaluation with ABG is not consistent with findings on BMP -pH was 7.43 - Repeat BMP in a.m. - BMP was referred to lab for reevaluation and scrutiny - Lactic acid unremarkable - Beta-hydroxybutyrate at 0.5 consistent with starvation not DKA Slight shortness of breath - Resolved Dysphagia secondary to grade B esophagitis and Schatzki's ring - MBS performed and concern for esophageal narrowing - EGD done on 06/17/2025 that showed grade B erosive esophagitis with no bleeding that was biopsied and Schatzki's ring that was dilated along with a hiatal hernia - Add Protonix 40 mg p.o. 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 DM-2 -Glucose checks and sliding scale insulin - Hold home oral agents DVT prophylaxis - Continue heparin drip with plans to discontinue and transition to subcu heparin if Dopplers are negative CODE STATUS - Full code Charges/Coding Visit Charges Inpatient E&M: 35273 Subs Hosp L2
[2025-06-17 08:01] LABS: BETA-HYDROXYBUTYRATE 0.5 mmol/L (0.0-0.3)
[2025-06-17 08:04] LABS: Base Excess -4 mmol/L (-2 to +2); PO2 76 mmHG (75-100); SITE L Brach; SO2 96 % (95-99)
--- NOTE | 2025-06-17 08:16 | CT_ITS ---
PROCEDURE: CHEST WITHOUT CONTRAST 06/17/2025 REASON FOR EXAM: CHEST PAIN TECHNIQUE: Chest CT without contrast. Coronal and Sagittal reconstruction series were provided. One or more dose reduction techniques were used (e.g., Automated exposure control, adjustment of the mA and/or kV according to patient size, use of iterative reconstruction technique RADIATION DOSE SUMMARY: CTDlvol: 15.61 mGy DLP: 561.88 mGycm COMPARISON: Chest x-ray 06/15/2025. FINDINGS: Hardware: Status post median sternotomy. Lymph nodes: No lymphadenopathy. Heart and Vasculature: Mild cardiomegaly. Coronary Artery Calcifications: Atherosclerotic calcifications of the coronary arteries. Lungs and Airways: Clear. Pleura: No free air or free fluid. Upper Abdomen: Unremarkable. Bones: No acute bony abnormalities. CT/Chest without Contrast IMPRESSION: Coronary artery calcification (CAC) is present No acute chest abnormalities. Reading Location: [id number]
--- NOTE | 2025-06-17 08:16 | CT_ITS ---
PROCEDURE: CHEST WITHOUT CONTRAST 06/17/2025 REASON FOR EXAM: CHEST PAIN TECHNIQUE: Chest CT without contrast. Coronal and Sagittal reconstruction series were provided. One or more dose reduction techniques were used (e.g., Automated exposure control, adjustment of the mA and/or kV according to patient size, use of iterative reconstruction technique RADIATION DOSE SUMMARY: CTDlvol: 15.61 mGy DLP: 561.88 mGycm COMPARISON: Chest x-ray 06/15/2025. FINDINGS: Hardware: Status post median sternotomy. Lymph nodes: No lymphadenopathy. Heart and Vasculature: Mild cardiomegaly. Coronary Artery Calcifications: Atherosclerotic calcifications of the coronary arteries. Lungs and Airways: Clear. Pleura: No free air or free fluid. Upper Abdomen: Unremarkable. Bones: No acute bony abnormalities. CT/Chest without Contrast IMPRESSION: Coronary artery calcification (CAC) is present No acute chest abnormalities. Reading Location: [id number]
--- NOTE | 2025-06-17 08:21 | PN.RENAL_ITS ---
Subjective Subjective clinically unchanged. Sodium 111 last night to 115 this morning, 118 this afternoon. Florinef dose increased. Urine output good with lund to CD. EGD today with CT. Denied chest pain Objective Data Objective Data Vital Signs: Vital Signs Temp Pulse Resp BP Pulse Ox O2 Del Method 97.7 F L 62 17 133/93 H 98 Room Air 06/17/25 06:20 06/17/25 06:20 06/17/25 06:20 06/17/25 06:20 06/17/25 06:20 06/17/25 06:20 Oxygen Delivery Method Room Air Weight: 85 kg Body Mass Index (BMI) 26.9 Intake & Output: Intake and Output for Last 24 Hours 06/15/25 06/16/25 06/17/25 23:59 23:59 23:59 Intake Total 1099.02 / 1099.02 994.73 / 1114.73 220 / 220 Output Total 3250 / 3550 1550 / 1550 Balance 1099.02 / 1099.02 -2255.27 / -2435.27 -1330 / -1330 Lab / Micro Data 06/17/25 04:41 06/17/25 14:07 Labs: Laboratory Results - last 24 hr 06/16/25 12:25: POC Glucose 147 H 06/16/25 12:52: Sodium 114 L*, Potassium 4.9, Chloride 82 L, Carbon Dioxide 19.0 L, Anion Gap 13, BUN 40 H, Creatinine 2.07 H, Estim Creat Clear Calc 28.41 L, E st GFR (MDRD) Non-Af 31 L, BUN/Creatinine Ratio 19.2, Glucose 161 H, Calcium 8.4 06/16/25 14:42: APTT 54.2 H 06/16/25 16:30: POC Glucose 194 H 06/16/25 19:16: Sodium 111 L*, Potassium 4.8, Chloride 81 L, Carbon Dioxide 16.1 L, Anion Gap 14, BUN 40 H, Creatinine 2.06 H, Estim Creat Clear Calc 28.55 L, E st GFR (MDRD) Non-Af 32 L, BUN/Creatinine Ratio 19.3, Glucose 141 H, Calcium 8.3 06/16/25 21:38: APTT 131.0 H*, Sodium 112 L*, Potassium 4.4, Chloride 81 L, C arbon Dioxide 15.1 L, Anion Gap 15, BUN 41 H, Creatinine 2.08 H, Estim Creat Clear Calc 28.27 L, Est GFR (MDRD) Non-Af 31 L, BUN/Creatinine Ratio 19.9, G lucose 124 H, Calcium 8.2 06/16/25 21:54: POC Glucose 122 H 06/17/25 04:41: WBC 8.2, RBC 3.35 L, Hgb 10.5 L, Hct 28.4 L, MCV 84.8, MCH 31.3, MCHC 37.0 H, RDW Std Deviation 37.3, RDW Coeff of Shana 12.4, Plt Count 218, MPV 10.7, Sodium 115 L*, Potassium 4.1, Chloride 85 L, Carbon Dioxide 12.7 L, Anion Gap 17 H, BUN 40 H, Creatinine 2.03 H, Estim Creat Clear Calc 28.97 L, Est GFR (MDRD) Non-Af 32 L, BUN/Creatinine Ratio 19.8, Glucose 97, Calcium 8.1, Phosphorus 4.4, Magnesium 2.0, b-Hydroxybutyric mmol/L 0.5 H 06/17/25 06:10: PT 14.9, INR 1.1, APTT 41.4 H 06/17/25 06:24: POC Glucose 126 H Micro: Microbiology 06/15/25 17:54 Mucosa - Nasopharyngeal Coronavirus COVID-19 PCR - Final 06/15/25 17:54 Mucosa - Nasopharyngeal Respiratory Panel (PCR) - Final ABG Data ABG results: ABG 06/17/25 08:01 Specimen Type ART Sample Site L Brach pH 7.43 Bicarbonate Actual 20.3 L Total CO2 21 Base Excess -4 L O2 Saturation 96 ABG pCO2 30.4 L ABG pO2 76 O2 Delivery Device Room Air Vent Mode Not entered Radiography Diagnostic Testing: Radiology Impression Echocardiogram 06/15/25 17:19 Interpretation Summary Mild concentric left ventricular hypertrophy. The left ventricular ejection fraction is 65 %. Stage 1 diastolic dysfunction. The left atrium is moderately enlarged. Moderate (2+) mitral valve insufficiency. Mild tricuspid valve insufficiency. Mildly calcified aortic valve leaflets. Aortic valve sclerosis without stenosis. Ordering Physician: Francesca Burrell Performed By: Chance Agee RCS Physical Exam Const alert and oriented x3 Constitutional Narrative: poor historian HEENT normocephalic Cardio regular rate GI non-tender and non-distended Auscultation: normoactive bowel sounds Palpation: soft Bladder / Kidney Exam: catheter in place Extremity no clubbing, cyanosis or edema Extremity Narrative: generalized weakness Skin no rashes or lesions noted General Skin Exam: ecchymosis Neuro Sensorium / Orientation: awake and alert Psych cooperative Assessment & Plan Assessment/Plan (1) Acute hyponatremia: PLAN: Increase florinef to 0.2mg daily. Sodium 115 to 118 today (2) Acute hyperkalemia: PLAN: resolved. Mineralocorticoid deficiency vs due to urinary retention or both. TTKG <6 to suggest mineralocorticoid deficiency (3) Chest pain: PLAN: on heparin drip. Hx hiccups with esophageal stricture on swallow evaluation (4) Acute kidney injury: PLAN: Creatinine at baseline (5) CKD stage 3 due to type 2 diabetes mellitus: PLAN: baseline creatinine 1.8 to 2.0 eGFR 30-24cc/min on ARB therapy, SGLT2 inhibitor (6) History of BPH: PLAN: on flomax Urinary retention s/p lund to CD (7) History of hypertension: PLAN: stable (8) Mineralocorticoid deficiency: PLAN: florinef 0.2mg today
--- NOTE | 2025-06-17 10:30 | CASEMGMT ---
CRISTELA DUPREE Face to Face with patient for initial transition planning/care coordination assessment. CRISTELA DUPREE introduced self and role at [facility]. Patient lying in bed, alert and oriented, friend and caregiver at bedside. Patient willing to participate in assessment and is able to answer all questions appropriately. Care providers, pharmacy, and demographics verified. Strata: 3 PCP: Fariha Specialists: Chris, manager union; Shazia, salvage laborer; Preferred Pharmacy: [facility] Insurance: [employer] [facility] Prescription Benefit: yes Living Will/HPOA: yes, son Jorge Luis Hernandez LNOK: son Living Arrangements: Patient lives alone in a single story home with 2 steps and railing to enter the home. Patient states he is independent at home. Transportation: Private aide, DIL, friend Michael DME/HHC: Patient has raised toilet, cane, grab bars, and glucometer at home. Patient denies previous HHC or SNF. Patient has private aide, Zap, that comes M-F 8a-12p. Patient wishes to discharge home. Patient is currently requiring assistance x2 for ADLs with nursing staff. CRISTELA DUPREE discussed SNF at discharge for additional therapy, friend and private aide encouraging patietn to go to SNF for additional therapy, patient agreeable. SNF list to be provided to patient. Patient states he has no further needs or concerns at this time. CRISTELA DUPREE updated DC professor of forest planning to provide SNF list to patient. CM to follow for discharge planning needs that may arise. Disposition Plan: SNF pending acceptance and precert Lena JOE, RN, CM
--- NOTE | 2025-06-17 10:30 | CASEMGMT ---
CRISTELA DUPREE Face to Face with patient for initial transition planning/care coordination assessment. CRISTELA DUPREE introduced self and role at [facility]. Patient lying in bed, alert and oriented, friend and caregiver at bedside. Patient willing to participate in assessment and is able to answer all questions appropriately. Care providers, pharmacy, and demographics verified. Strata: 3 PCP: Fariha Specialists: Chris, senior it engineer; Shazia, assembler 1st shift; Preferred Pharmacy: [facility] Insurance: [employer] [facility] Prescription Benefit: yes Living Will/HPOA: yes, son Jorge Luis Hernandez LNOK: son Living Arrangements: Patient lives alone in a single story home with 2 steps and railing to enter the home. Patient states he is independent at home. Transportation: Private aide, DIL, friend Michael DME/HHC: Patient has raised toilet, cane, grab bars, and glucometer at home. Patient denies previous HHC or SNF. Patient has private aide, Clayton, that comes M-F 8a-12p. Patient wishes to discharge home. Patient is currently requiring assistance x2 for ADLs with nursing staff. CRISTELA DUPREE discussed SNF at discharge for additional therapy, friend and private aide encouraging patietn to go to SNF for additional therapy, patient agreeable. SNF list to be provided to patient. Patient states he has no further needs or concerns at this time. CRISTELA DUPREE updated DC planning lead to provide SNF list to patient. CM to follow for discharge planning needs that may arise. Disposition Plan: SNF pending acceptance and precert Lena JOE, RN, CM
[2025-06-17] MEDS: Pantoprazole Sodium 40 MG in 0.9% Normal Saline (100mL MB+) 100 ML 300 MG IV (10:40)
[2025-06-17] MEDS: 0.9% Saline Lock 10 ML Syringe IV (10:41)
[2025-06-17] MEDS: Lactated Ringers 1,000 ML 15 ML IV (11:48)
--- NOTE | 2025-06-17 11:53 | CASEMGMT ---
Addendum entered by Dafne Atkins 06/17/25 12:21: SNF list was given to RN CM as pt was out of room for procedure. Dafne Atkins DC Planning Asst. Original Note: Discharge Planning A list of?SNF providers including quality and resource use data and consistent with the patient's preferred geographic region, medical needs, and insurance network was created in [employer] Guide.? This list was provided to the patient. Dafne Atkins, Discharge Planning Asst.
--- NOTE | 2025-06-17 12:07 | PRE.ANES_ITS ---
ASA Classification* ASA Classification ASA Classification: 4 and E Assessment & Plan Anesthesia* Anesthesia Assessment Anesthesia Assessment: Discussed sedation and/or anesthesia options, risks, benefits, and alternatives with patient/parents/legal guardian/POA. Questions invited. The patient/parents/legal guardian/POA seems to understand and agrees to proceed with anesthesia plan. Reviewed the physical assessment, medical history, allergy history and patient home medications list prior to surgery/procedure/anesthetic and documented any changes. Performed airway and anesthesia risk assessments. Anesthesia Type Anesthesia Type: MAC (Patient is cleared for this surgery only) History Source History Obtained from:: Patient and Chart Anesthesia Focused Assessment* Temperature: 97.8 F Pulse Rate: 60 Blood Pressure: 138/70 Respiratory Rate: 16 Pulse Ox: 98 Oxygen Delivery Method: Room Air Airway Assessment Mouth opens: >3 cm Mallampati Score: IV Teeth Condition: Intact, Missing (bottom right molar) and Implants (left upper molar) Neck Range of motion (ROM): Limited ROM Comment: facial hair Labs Anesthesia Preop lab: CBC WBC, (4.4-11.0) 8.2 K/mm3 Today, 04:41 RBC, (4.6-6.2) 3.35 M/mm3 L Today, 04:41 Hgb, (13.0-16.5) 10.5 g/dL L Today, 04:41 Hct, (40-54) 28.4 % L Today, 04:41 Plt Count, (150-450) 218 K/mm3 Today, 04:41 CHEMISTRY Potassium, (3.3-5.1) 4.1 mmol/L Today, 04:41 Sodium, (133-145) 115 mmol/L L* Today, 04:41 Magnesium, (1.5-2.2) 2.0 mg/dL Today, 04:41 Phosphorus, (2.7-4.5) 4.4 mg/dL Today, 04:41 BUN, (4-19) 40 mg/dL H Today, 04:41 Creatinine, (0.70-1.20) 2.03 mg/dL H Today, 04:41 Glucose, (70-99) 97 mg/dL Today, 04:41 POC Glucose, (74-106) 126 mg/dL H Today, 06:24 TSH, (0.300-4.200) 3.720 uIU/mL 06/15/25, 15:45 COAG PT, (11.7-14.9) 14.9 SECONDS Today, 06:10 Pre-Assessment Diagnosis/Proposed Procedure Planned Operative Procedure(s): EGD with dilation Anesthesia History Anesthesia History - rigger up: Anesthesia History - rigger up Hx Hospitalization Any Problems With Anesthesia No 06/16/25 19:35 Cholinesterase deficiency No 06/16/25 19:35 You/Your Family Experience No 06/16/25 19:35 fever (hyperthermia) with Relationship Recent Exposure to Contagious No 06/16/25 19:35 Disease Does patient have nerve No 06/16/25 19:35 stimulator Patient instructed to have No 06/16/25 19:35 device shut off --Does patient have Pacemaker or ICD? When Was Last Pacemaker Check QUESTION #4 FULL TEXT: You/Your Family Experience fever (hyperthermia) with Anesthesia Any additional information?: Yes Hx Hospitalization: Yes (06-15-2025 ER C/o hiccups that developed into chest pressure) Any Problems With Anesthesia: No Cholinesterase deficiency: No You/your family experience fever (hyperthermia) with anesthesia: No Recent Exposure to Contagious Disease: No Does patient have nerve stimulator: No Patient instructed to have device shut off: No --Does patient have Pacemaker or ICD?: No Last Oral Intake Last Oral intake: Last Oral Intake NPO since 00:00 06/17/25 06:22 Meds taken in AM with sips of Yes 06/17/25 06:22 water? Meds patient instructed to sodium tab 06/17/25 06:22 take am of surgery Any additional information?: Yes NPO since: 06:22 Meds taken in AM with sips of water?: Yes Meds patient instructed to take am of surgery: sodium tab PONV PONV - rigger up: PONV - rigger up Female HX of Motion Sickness HX of N/V After Surgery Non-Smoker Duration of Surgery greater than 60 minutes Number of Risk Factors PONV Score Any additional information?: Yes Female: No HX of Motion Sickness: No HX of N/V After Surgery: No Non-Smoker: No Duration of Surgery greater than 60 minutes: No Height & Weight Height & Weight: Anesthesia: Height & Weight Height 5 ft 10 in 06/17/25 06:22 Weight: 85 kg 06/17/25 06:22 Body Mass Index (BMI) 26.9 06/17/25 06:22 Respiratory Assessment Respiratory Assessment - rigger up: Respiratory Tract Infection Hx - rigger up Hx Respiratory Tract Infection No 06/16/25 19:35 Any additional information?: No STOP Sleep Apnea STOP Sleep Apnea - rigger up: STOP Sleep Apnea - rigger up Hx Hypertension Yes 06/16/25 15:05 Hx Sleep Apnea No 06/15/25 17:20 CPAP No 06/15/25 17:20 BIPAP No 06/15/25 17:20 Do you snore loudly (louder No 06/15/25 17:20 than talking or can be heard Do you often feel tired/ No 06/15/25 17:20 fatigued/ sleepy during daytime? Has anyone observed you stop No 06/15/25 17:20 breathing during sleep? STOP Results Negative 06/15/25 17:20 QUESTION #5 FULL TEXT : Do you snore loudly (louder than talking or can be heard through closed doors)? 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 Specify any problems Hx of Preganancy in last 3 N/A 06/15/25 17:20 Months Nurse Filling Out Transfusion [id number] 06/15/25 17:20 & Questions: Date: 06/15/25 06/15/25 17:20 Time: 17:24 06/15/25 17:20 Patient unable to answer at this time (ie. confused, unrespo Any additional information?: No /Reproduction History /Reproductive History - rigger up: /Reproductive Hx- rigger up Hx Now No 06/16/25 19:35 Gestational Age (in weeks): EDC: Hx Hx Para Hx Section SAB No 06/16/25 19:35 Any additional information?: No Active Medications Active Medications: Current Medications Generic Name Dose Route Start Last Admin Trade Name Freq PRN Reason Stop Dose Admin Acetaminophen 650 mg 06/15/25 17:19 Acetaminophen 325 Mg Tablet PO Q6H PRN PRN Pain 1-10 Or Fever >100.7 Albuterol Sulfate 2.5 mg 06/15/25 17:19 Albuterol 2.5 Mg/3 Ml Vial.Neb. INHALATION Q2H PRN PRN SOB &/OR WHEEZING Amlodipine Besylate 10 mg 06/16/25 12:00 06/16/25 08:42 Amlodipine 10 Mg Tablet PO 10 mg 1200 JACOB Administration Protocol Ascorbic Acid 500 mg 06/16/25 08:00 06/17/25 10:29 Ascorbic Acid 500 Mg Tablet PO Not Given DAILYCM JACOB Aspirin 81 mg 06/16/25 08:00 06/17/25 10:29 Aspirin 81 Mg Tab.Chew PO Not Given BREAKFAST JACOB Atorvastatin Calcium 40 mg 06/15/25 22:00 06/16/25 21:59 Atorvastatin Calcium 40 Mg Tablet PO 40 mg QHS JACOB Administration Calcitriol 0.25 mcg 06/16/25 17:00 06/16/25 17:45 Calcitriol 0.25 Mcg Capsule PO 0.25 mcg MoWeFr JACOB Administration Cyanocobalamin 1,000 mcg 06/16/25 08:00 06/17/25 10:29 Cyanocobalamin 500 Mcg Tablet PO Not Given DAILYCM JACOB Empagliflozin 25 mg 06/16/25 10:00 06/16/25 08:42 Empagliflozin 25 Mg Tablet PO 25 mg On Hold: 06/17/25 07:23 DAILY JACOB Administration Fludrocortisone Acetate 0.2 mg 06/17/25 12:00 Fludrocortisone Acetate 0.1 Mg Tablet PO 1200 JACOB Gabapentin 100 mg 06/15/25 17:19 06/17/25 06:27 Gabapentin 100 Mg Capsule PO Not Given TID JACOB Glucagon 1 mg 06/15/25 17:19 Glucagon 1 Mg/Ml Syringe IM X1 PRN HYPOGLYCEMIA Protocol Heparin Sodium (Porcine) 0 unit 06/15/25 14:11 Heparin Nomogram Adjustment 5,000 Unit/Ml Vial IV UD PRN Dose Adjustment Protocol Heparin Sodium/Dextrose 25,000 units in 250 mls @ 12.96 mls/hr 06/15/25 14:15 06/16/25 23:03 CONT INF 0 unit/kg/hr .[id number] JACOB 0 mls/hr Protocol Titration 15 UNIT/KG/HR Dextrose 250 mls @ 0 mls/hr 06/15/25 17:19 Dextrose 10%-Water IV .Q0M PRN HYPOGLYCEMIA Protocol As Directed Pantoprazole Sodium 40 mg/ 100 mls @ 300 mls/hr 06/15/25 17:19 06/17/25 11:00 Sodium Chloride IV Infused Q12 JACOB Infusion Sodium Chloride 500 mls @ 15 mls/hr 06/15/25 17:27 IV PRN PRN Blood Transfusion Sodium Chloride 250 mls @ 15 mls/hr 06/16/25 18:22 IV .[id number] PRN Saline Flush Sodium Chloride 250 mls @ 15 mls/hr 06/16/25 18:22 IV .[id number] PRN Additional IVPB Infusion Lactated Ringer's 1,000 mls @ 15 mls/hr 06/17/25 11:45 06/17/25 11:48 IV 15 mls/hr .Q48H JACOB Administration Insulin Human Lispro 0 unit 06/15/25 17:19 06/17/25 06:47 Insulin Lispro 100 Unit/Ml Insuln.Pen SC Not Given ACHS JACOB Protocol Isosorbide Mononitrate 60 mg 06/16/25 10:00 06/16/25 08:41 Isosorbide Mononitrate 60 Mg Tablet PO 60 mg DAILY JACOB Administration Protocol Linagliptin 5 mg 06/16/25 12:00 06/16/25 12:43 Linagliptin 5 Mg Tablet PO 5 mg 1200 JACOB Administration Losartan Potassium 100 mg 06/16/25 10:00 06/16/25 08:41 Losartan Potassium 100 Mg Tablet PO 100 mg DAILY JACOB Administration Protocol Magnesium Chloride 128 mg 06/16/25 10:00 06/16/25 08:41 Magnesium Chloride 64 Mg Delay Rel.Tablet PO 128 mg DAILY JACOB Administration Melatonin 10 mg 06/15/25 17:19 06/16/25 22:41 Melatonin 10 Mg Tablet PO 10 mg QHS PRN PRN Administration INSOMNIA Metoprolol Succinate 100 mg 06/16/25 10:00 06/16/25 12:41 Metoprolol(Xl)Succ 100 Mg Tablet PO 100 mg DAILY JACOB Administration Protocol Senna/Docusate Sodium 2 tablet 06/15/25 17:19 Senna/Docusate Sodium 1 Tablet PO BID PRN PRN Constipation Sertraline HCl 50 mg 06/16/25 10:00 06/16/25 08:52 Sertraline 50 Mg Tablet PO 50 mg DAILY JACOB Administration Sodium Chloride 10 - 40 ml 06/15/25 17:27 06/17/25 10:41 0.9% Saline Lock 10 Ml Syringe IV 10 ml UD PRN Administration SALINE FLUSH Sodium Chloride 1 gm 06/16/25 22:00 06/17/25 06:27 Sodium Chloride 1 Gm Tablet PO 1 gm TID JACOB Administration Sodium Chloride 10 - 40 ml 06/16/25 18:22 0.9% Saline Lock 10 Ml Syringe IV UD PRN SALINE FLUSH Tamsulosin HCl 0.8 mg 06/16/25 22:00 06/16/25 21:59 Tamsulosin Hcl 0.4 Mg Capsule PO 0.8 mg QHS JACOB Administration PFSH Medical History (Updated 06/17/25 @ 12:18 by Padma Tripp CRNA) CAD (coronary artery disease) of artery bypass graft Diabetes mellitus BPH (benign prostatic hyperplasia) Hypertension Medical History no medical history no medical history Home Medications ?Medication ?Instructions ?Recorded ?Last Taken ?Type amlodipine 5 mg tablet 5 mg PO DAILY blood pressure 08/14/19 09/01/19 History atorvastatin 40 mg tablet 40 mg PO QHS cholesterol 08/31/19 History cinnamon bark 500 mg capsule 500 mg PO DAILY supplemen t 08/14/19 09/01/19 History isosorbide mononitrate 60 mg 60 mg PO 1200 heart 08/1409/01/19 History tablet,extended release 24 hr omega-3 fatty acids-fish oil 684 1 cap PO BID suppleme nt 08/14/19 09/01/19 History mg-1,200 mg capsule,delayed release ascorbic acid (vitamin C) 1,000 mg 1,000 mg PO DAILY s upplement 09/01/19 08/31/19 History tablet cyanocobalamin (vitamin B-12) 1,000 mcg PO DAILY suppl ement 09/01/19 08/31/19 History 1,000 mcg capsule magnesium oxide 400 mg (241.3 mg 400 mg PO DAILY suppl ement 09/01/19 08/31/19 History magnesium) tablet tamsulosin 0.4 mg capsule 0.8 mg PO QHS as directed 08/31/19 History UBIDE Q10 50 mg PO 1200 supplement Unknown History amlodipine 10 mg tablet 10 mg PO 1200 BLOOD PRESSURE 06/15/25 Unknown History ascorbic acid (vitamin C) 500 mg 500 mg PO DAILY suppl ement 06/15/25 Unknown History tablet (C-500) aspirin 81 mg tablet,delayed 81 mg PO 1200 DIRECTED 06/15/25 Unknown History release (Adult Aspirin Regimen) atorvastatin 80 mg tablet 80 mg PO QHS CHOLESTEROL Unknown History calcitriol 0.25 mcg capsule 0.25 mcg PO .MWF supplemen t 06/15/25 Unknown History cinnamon bark 500 mg capsule 2,000 mg PO BID supplemen t 06/15/25 Unknown History (Cinnamon) empagliflozin 25 mg tablet 25 mg PO DAILY DIRECTED 06/15/25 Unknown History (Jardiance) fludrocortisone 0.1 mg tablet 0.1 mg PO 1200 DIRECT ED 06/15/25 Unknown History glipizide 2.5 mg tablet, extended 2.5 mg PO DAILY DIAB ETES 06/15/25 Unknown History release 24 hr hydrochlorothiazide 25 mg tablet 25 mg PO 1200 [address]ED 06/15/25 Unknown History losartan 100 mg tablet 100 mg PO DAILY DIRECTED 06/15/25 Unknown History metoprolol succinate 100 mg 100 mg PO DAILY heart/ blo od 06/15/25 Unknown History tablet,extended release 24 hr pressure sertraline 50 mg tablet 50 mg PO DAILY as directed 0 06/15/25 Unknown History sitagliptin phosphate 50 mg tablet 50 mg PO 1200 DI RECTED 06/15/25 Unknown History (Januvia) tumeric 1 tab PO DAILY supplement Unknown History vitamin A 2,400 mcg capsule 2,400 mcg PO DAILY supplem ent 06/15/25 Unknown History vitamin E 180 mg PO DAILY supplement 0 06/15/25 Unknown History Allergy/AdvReac Type Severity Reaction Status Date / Time alprazolam (From Xanax) AdvReac Other Verified 06/15/25 12:36 Surgical History Hx of CABG History of coronary artery stent placement Social History Smoking Status: Never smoker Review of Systems (Anesthesia) ROS Narrative System reviewed and no additional complaints, except as documented. Hyperlipidemia Most Recent Cardiac Tests: Chest X-Ray 06/15/25 Echocardiogram 06/15/25
--- NOTE | 2025-06-17 12:07 | PRE.ANES_ITS ---
ASA Classification* ASA Classification ASA Classification: 4 and E Assessment & Plan Anesthesia* Anesthesia Assessment Anesthesia Assessment: Discussed sedation and/or anesthesia options, risks, benefits, and alternatives with patient/parents/legal guardian/POA. Questions invited. The patient/parents/legal guardian/POA seems to understand and agrees to proceed with anesthesia plan. Reviewed the physical assessment, medical history, allergy history and patient home medications list prior to surgery/procedure/anesthetic and documented any changes. Performed airway and anesthesia risk assessments. Anesthesia Type Anesthesia Type: MAC (Patient is cleared for this surgery only) History Source History Obtained from:: Patient and Chart Anesthesia Focused Assessment* Temperature: 97.8 F Pulse Rate: 60 Blood Pressure: 138/70 Respiratory Rate: 16 Pulse Ox: 98 Oxygen Delivery Method: Room Air Airway Assessment Mouth opens: >3 cm Mallampati Score: IV Teeth Condition: Intact, Missing (bottom right molar) and Implants (left upper molar) Neck Range of motion (ROM): Limited ROM Comment: facial hair Labs Anesthesia Preop lab: CBC WBC, (4.4-11.0) 8.2 K/mm3 Today, 04:41 RBC, (4.6-6.2) 3.35 M/mm3 L Today, 04:41 Hgb, (13.0-16.5) 10.5 g/dL L Today, 04:41 Hct, (40-54) 28.4 % L Today, 04:41 Plt Count, (150-450) 218 K/mm3 Today, 04:41 CHEMISTRY Potassium, (3.3-5.1) 4.1 mmol/L Today, 04:41 Sodium, (133-145) 115 mmol/L L* Today, 04:41 Magnesium, (1.5-2.2) 2.0 mg/dL Today, 04:41 Phosphorus, (2.7-4.5) 4.4 mg/dL Today, 04:41 BUN, (4-19) 40 mg/dL H Today, 04:41 Creatinine, (0.70-1.20) 2.03 mg/dL H Today, 04:41 Glucose, (70-99) 97 mg/dL Today, 04:41 POC Glucose, (74-106) 126 mg/dL H Today, 06:24 TSH, (0.300-4.200) 3.720 uIU/mL 06/15/25, 15:45 COAG PT, (11.7-14.9) 14.9 SECONDS Today, 06:10 Pre-Assessment Diagnosis/Proposed Procedure Planned Operative Procedure(s): EGD with dilation Anesthesia History 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 When Was Last Pacemaker Check QUESTION #4 FULL TEXT: You/Your Family Experience fever (hyperthermia) with Anesthesia Any additional information?: Yes Hx Hospitalization: Yes (06-15-2025 ER C/o hiccups that developed into chest pressure) Any Problems With Anesthesia: No Cholinesterase deficiency: No You/your family experience fever (hyperthermia) with anesthesia: No Recent Exposure to Contagious Disease: No Does patient have nerve stimulator: No Patient instructed to have device shut off: No --Does patient have Pacemaker or ICD?: No Last Oral Intake Last Oral intake: Last Oral Intake NPO since 00:00 06/17/25 06:22 Meds taken in AM with sips of Yes 06/17/25 06:22 water? Meds patient instructed to sodium tab 06/17/25 06:22 take am of surgery Any additional information?: Yes NPO since: 06:22 Meds taken in AM with sips of water?: Yes Meds patient instructed to take am of surgery: sodium tab PONV PONV - mechanical reliability engineer: PONV - mechanical reliability engineer Female HX of Motion Sickness HX of N/V After Surgery Non-Smoker Duration of Surgery greater than 60 minutes Number of Risk Factors PONV Score Any additional information?: Yes Female: No HX of Motion Sickness: No HX of N/V After Surgery: No Non-Smoker: No Duration of Surgery greater than 60 minutes: No Height & Weight Height & Weight: Anesthesia: Height & Weight Height 5 ft 10 in 06/17/25 06:22 Weight: 85 kg 06/17/25 06:22 Body Mass Index (BMI) 26.9 06/17/25 06:22 Respiratory Assessment Respiratory Assessment - mechanical reliability engineer: Respiratory Tract Infection Hx - mechanical reliability engineer Hx Respiratory Tract Infection No 06/16/25 19:35 Any additional information?: No STOP Sleep Apnea STOP Sleep Apnea - mechanical reliability engineer: STOP Sleep Apnea - mechanical reliability engineer Hx Hypertension Yes 06/16/25 15:05 Hx Sleep Apnea No 06/15/25 17:20 CPAP No 06/15/25 17:20 BIPAP No 06/15/25 17:20 Do you snore loudly (louder No 06/15/25 17:20 than talking or can be heard Do you often feel tired/ No 06/15/25 17:20 fatigued/ sleepy during daytime? Has anyone observed you stop No 06/15/25 17:20 breathing during sleep? STOP Results Negative 06/15/25 17:20 QUESTION #5 FULL TEXT : Do you snore loudly (louder than talking or can be heard through closed doors)? 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 Specify any problems Hx of Preganancy in last 3 N/A 06/15/25 17:20 Months Nurse Filling Out Transfusion [id number] 06/15/25 17:20 & Questions: Date: 06/15/25 06/15/25 17:20 Time: 17:24 06/15/25 17:20 Patient unable to answer at this time (ie. confused, unrespo Any additional information?: No /Reproduction History /Reproductive History - mechanical reliability engineer: /Reproductive Hx- mechanical reliability engineer Hx Now No 06/16/25 19:35 Gestational Age (in weeks): EDC: Hx Hx Para Hx Section SAB No 06/16/25 19:35 Any additional information?: No Active Medications Active Medications: Current Medications Generic Name Dose Route Start Last Admin Trade Name Freq PRN Reason Stop Dose Admin Acetaminophen 650 mg 06/15/25 17:19 Acetaminophen 325 Mg Tablet PO Q6H PRN PRN Pain 1-10 Or Fever >100.7 Albuterol Sulfate 2.5 mg 06/15/25 17:19 Albuterol 2.5 Mg/3 Ml Vial.Neb. INHALATION Q2H PRN PRN SOB &/OR WHEEZING Amlodipine Besylate 10 mg 06/16/25 12:00 06/16/25 08:42 Amlodipine 10 Mg Tablet PO 10 mg 1200 JACOB Administration Protocol Ascorbic Acid 500 mg 06/16/25 08:00 06/17/25 10:29 Ascorbic Acid 500 Mg Tablet PO Not Given DAILYCM JACOB Aspirin 81 mg 06/16/25 08:00 06/17/25 10:29 Aspirin 81 Mg Tab.Chew PO Not Given BREAKFAST JACOB Atorvastatin Calcium 40 mg 06/15/25 22:00 06/16/25 21:59 Atorvastatin Calcium 40 Mg Tablet PO 40 mg QHS JACOB Administration Calcitriol 0.25 mcg 06/16/25 17:00 06/16/25 17:45 Calcitriol 0.25 Mcg Capsule PO 0.25 mcg MoWeFr JACOB Administration Cyanocobalamin 1,000 mcg 06/16/25 08:00 06/17/25 10:29 Cyanocobalamin 500 Mcg Tablet PO Not Given DAILYCM JACOB Empagliflozin 25 mg 06/16/25 10:00 06/16/25 08:42 Empagliflozin 25 Mg Tablet PO 25 mg On Hold: 06/17/25 07:23 DAILY JACOB Administration Fludrocortisone Acetate 0.2 mg 06/17/25 12:00 Fludrocortisone Acetate 0.1 Mg Tablet PO 1200 JACOB Gabapentin 100 mg 06/15/25 17:19 06/17/25 06:27 Gabapentin 100 Mg Capsule PO Not Given TID JACOB Glucagon 1 mg 06/15/25 17:19 Glucagon 1 Mg/Ml Syringe IM X1 PRN HYPOGLYCEMIA Protocol Heparin Sodium (Porcine) 0 unit 06/15/25 14:11 Heparin Nomogram Adjustment 5,000 Unit/Ml Vial IV UD PRN Dose Adjustment Protocol Heparin Sodium/Dextrose 25,000 units in 250 mls @ 12.96 mls/hr 06/15/25 14:15 06/16/25 23:03 CONT INF 0 unit/kg/hr .[id number] JACOB 0 mls/hr Protocol Titration 15 UNIT/KG/HR Dextrose 250 mls @ 0 mls/hr 06/15/25 17:19 Dextrose 10%-Water IV .Q0M PRN HYPOGLYCEMIA Protocol As Directed Pantoprazole Sodium 40 mg/ 100 mls @ 300 mls/hr 06/15/25 17:19 06/17/25 11:00 Sodium Chloride IV Infused Q12 JACOB Infusion Sodium Chloride 500 mls @ 15 mls/hr 06/15/25 17:27 IV PRN PRN Blood Transfusion Sodium Chloride 250 mls @ 15 mls/hr 06/16/25 18:22 IV .[id number] PRN Saline Flush Sodium Chloride 250 mls @ 15 mls/hr 06/16/25 18:22 IV .[id number] PRN Additional IVPB Infusion Lactated Ringer's 1,000 mls @ 15 mls/hr 06/17/25 11:45 06/17/25 11:48 IV 15 mls/hr .Q48H JACOB Administration Insulin Human Lispro 0 unit 06/15/25 17:19 06/17/25 06:47 Insulin Lispro 100 Unit/Ml Insuln.Pen SC Not Given ACHS JACOB Protocol Isosorbide Mononitrate 60 mg 06/16/25 10:00 06/16/25 08:41 Isosorbide Mononitrate 60 Mg Tablet PO 60 mg DAILY JACOB Administration Protocol Linagliptin 5 mg 06/16/25 12:00 06/16/25 12:43 Linagliptin 5 Mg Tablet PO 5 mg 1200 JACOB Administration Losartan Potassium 100 mg 06/16/25 10:00 06/16/25 08:41 Losartan Potassium 100 Mg Tablet PO 100 mg DAILY JACOB Administration Protocol Magnesium Chloride 128 mg 06/16/25 10:00 06/16/25 08:41 Magnesium Chloride 64 Mg Delay Rel.Tablet PO 128 mg DAILY JACOB Administration Melatonin 10 mg 06/15/25 17:19 06/16/25 22:41 Melatonin 10 Mg Tablet PO 10 mg QHS PRN PRN Administration INSOMNIA Metoprolol Succinate 100 mg 06/16/25 10:00 06/16/25 12:41 Metoprolol(Xl)Succ 100 Mg Tablet PO 100 mg DAILY JACOB Administration Protocol Senna/Docusate Sodium 2 tablet 06/15/25 17:19 Senna/Docusate Sodium 1 Tablet PO BID PRN PRN Constipation Sertraline HCl 50 mg 06/16/25 10:00 06/16/25 08:52 Sertraline 50 Mg Tablet PO 50 mg DAILY JACOB Administration Sodium Chloride 10 - 40 ml 06/15/25 17:27 06/17/25 10:41 0.9% Saline Lock 10 Ml Syringe IV 10 ml UD PRN Administration SALINE FLUSH Sodium Chloride 1 gm 06/16/25 22:00 06/17/25 06:27 Sodium Chloride 1 Gm Tablet PO 1 gm TID JACOB Administration Sodium Chloride 10 - 40 ml 06/16/25 18:22 0.9% Saline Lock 10 Ml Syringe IV UD PRN SALINE FLUSH Tamsulosin HCl 0.8 mg 06/16/25 22:00 06/16/25 21:59 Tamsulosin Hcl 0.4 Mg Capsule PO 0.8 mg QHS JACOB Administration PFSH Medical History (Updated 06/17/25 @ 12:18 by Padma Tripp CRNA) CAD (coronary artery disease) of artery bypass graft Diabetes mellitus BPH (benign prostatic hyperplasia) Hypertension Medical History no medical history no medical history Home Medications ?Medication ?Instructions ?Recorded ?Last Taken ?Type amlodipine 5 mg tablet 5 mg PO DAILY blood pressure 08/14/19 09/01/19 History atorvastatin 40 mg tablet 40 mg PO QHS cholesterol 08/31/19 History cinnamon bark 500 mg capsule 500 mg PO DAILY supplemen t 08/14/19 09/01/19 History isosorbide mononitrate 60 mg 60 mg PO 1200 heart 08/1409/01/19 History tablet,extended release 24 hr omega-3 fatty acids-fish oil 684 1 cap PO BID suppleme nt 08/14/19 09/01/19 History mg-1,200 mg capsule,delayed release ascorbic acid (vitamin C) 1,000 mg 1,000 mg PO DAILY s upplement 09/01/19 08/31/19 History tablet cyanocobalamin (vitamin B-12) 1,000 mcg PO DAILY suppl ement 09/01/19 08/31/19 History 1,000 mcg capsule magnesium oxide 400 mg (241.3 mg 400 mg PO DAILY suppl ement 09/01/19 08/31/19 History magnesium) tablet tamsulosin 0.4 mg capsule 0.8 mg PO QHS as directed 08/31/19 History UBIDE Q10 50 mg PO 1200 supplement Unknown History amlodipine 10 mg tablet 10 mg PO 1200 BLOOD PRESSURE 06/15/25 Unknown History ascorbic acid (vitamin C) 500 mg 500 mg PO DAILY suppl ement 06/15/25 Unknown History tablet (C-500) aspirin 81 mg tablet,delayed 81 mg PO 1200 DIRECTED 06/15/25 Unknown History release (Adult Aspirin Regimen) atorvastatin 80 mg tablet 80 mg PO QHS CHOLESTEROL Unknown History calcitriol 0.25 mcg capsule 0.25 mcg PO .MWF supplemen t 06/15/25 Unknown History cinnamon bark 500 mg capsule 2,000 mg PO BID supplemen t 06/15/25 Unknown History (Cinnamon) empagliflozin 25 mg tablet 25 mg PO DAILY DIRECTED 06/15/25 Unknown History (Jardiance) fludrocortisone 0.1 mg tablet 0.1 mg PO 1200 DIRECT ED 06/15/25 Unknown History glipizide 2.5 mg tablet, extended 2.5 mg PO DAILY DIAB ETES 06/15/25 Unknown History release 24 hr hydrochlorothiazide 25 mg tablet 25 mg PO 1200 [address]RE CTED 06/15/25 Unknown History losartan 100 mg tablet 100 mg PO DAILY DIRECTED 06/15/25 Unknown History metoprolol succinate 100 mg 100 mg PO DAILY heart/ blo od 06/15/25 Unknown History tablet,extended release 24 hr pressure sertraline 50 mg tablet 50 mg PO DAILY as directed 0 06/15/25 Unknown History sitagliptin phosphate 50 mg tablet 50 mg PO 1200 DI RECTED 06/15/25 Unknown History (Januvia) tumeric 1 tab PO DAILY supplement Unknown History vitamin A 2,400 mcg capsule 2,400 mcg PO DAILY supplem ent 06/15/25 Unknown History vitamin E 180 mg PO DAILY supplement 0 06/15/25 Unknown History Allergy/AdvReac Type Severity Reaction Status Date / Time alprazolam (From Xanax) AdvReac Other Verified 06/15/25 12:36 Surgical History Hx of CABG History of coronary artery stent placement Social History Smoking Status: Never smoker Review of Systems (Anesthesia) ROS Narrative System reviewed and no additional complaints, except as documented. Hyperlipidemia Most Recent Cardiac Tests: Chest X-Ray 06/15/25 Echocardiogram 06/15/25
[2025-06-17] MEDS: 0.9% Normal Saline (1000mL) 1,000 ML 15 ML IV (12:41)
--- NOTE | 2025-06-17 12:45 | EGD_PTH ---
PATIENT: DERRICK BRADSHAW LOC: [facility] U#:[id number] AGE/SX: 84/M ROOM: [facility] RE06/15/[address]: Dr. Ramakrishna Pastrana MD : 1940 BED: 1 DIS: 06/18/2025 SPEC #: [id number] RECD: 06/17/25 13:29 STATUS: NEERAJ REQ #: [id number] RICK: 06/17/25 12:[address]: Manuelito Robins DEPT: SURGICAL PATHOLOGY RECD BY: Arian Gross ENTERED: 06/17/25 14:40 SP TYPE: EGD BIOPSY OT DR: MD Dr. Roseanna Douglas DO Dr. Jayaprakas Dasari, MD Dr. Kathryn Lee, DO Dr. Paige Pierce, MD Tissues: A - Esophagus, NOS Procedures: Special Stain Group I Surgery Specimen Level IV GMS Stain (control) HEADER OPERATION: EGD with biopsy and dilated PRE-OP DIAGNOSIS: Dysphagia TISSUE SUBMITTED: A- Distal esophagus biopsy MICROSCOPIC DIAGNOSIS A. Distal esophagus, biopsy: * Squamous mucosa with mild acute inflammation and mild atypia, favor reactive. * Columnar mucosa negative for goblet cell metaplasia. * PASD stain is negative for fungal organisms. MICROSCOPIC DESCRIPTION Slides are reviewed. All matched controls reacted appropriately. These tests were developed and their performance characteristics determined by [facility]. They may not have been cleared or approved by the U.S. Food and Drug Administration. The FDA has determined that such clearance or approval is not necessary. The above immunohistochemical markers and/or special stains have been reviewed by the Pathologist. GROSS DESCRIPTION A. Received in fixative is one container labeled with the patient's name and designated Distal esophagus biopsy. The specimen consists of four irregular fragments of garvin tissue that measure 0.3 to 0.5 cm. The specimen is totally submitted in one cassette. SD 06/17/2025 CPT:57934 ,78011
--- NOTE | 2025-06-17 12:45 | EGD_PTH ---
PATIENT: DERRICK BRADSHAW LOC: [facility] U#:[id number] AGE/SX: 84/M ROOM: [facility] RE06/15/[address]: Dr. Ramakrishna Pastrana MD : 1940 BED: 1 DIS: 06/18/2025 SPEC #: [id number] RECD: 06/17/25 13:29 STATUS: NEERAJ REQ #: [id number] RICK: 06/17/25 12:[address]: Manuelito Robins DEPT: SURGICAL PATHOLOGY RECD BY: Arian Gross ENTERED: 06/17/25 14:40 SP TYPE: EGD BIOPSY OT DR: MD Dr. Roseanna Douglas DO Dr. Jayaprakas Dasari, MD Dr. Kathryn Lee, DO Dr. Paige Pierce, MD Tissues: A - Esophagus, NOS Procedures: Special Stain Group I Surgery Specimen Level IV GMS Stain (control) HEADER OPERATION: EGD with biopsy and dilated PRE-OP DIAGNOSIS: Dysphagia TISSUE SUBMITTED: A- Distal esophagus biopsy MICROSCOPIC DIAGNOSIS A. Distal esophagus, biopsy: * Squamous mucosa with mild acute inflammation and mild atypia, favor reactive. * Columnar mucosa negative for goblet cell metaplasia. * PASD stain is negative for fungal organisms. MICROSCOPIC DESCRIPTION Slides are reviewed. All matched controls reacted appropriately. These tests were developed and their performance characteristics determined by [facility]. They may not have been cleared or approved by the U.S. Food and Drug Administration. The FDA has determined that such clearance or approval is not necessary. The above immunohistochemical markers and/or special stains have been reviewed by the Pathologist. GROSS DESCRIPTION A. Received in fixative is one container labeled with the patient's name and designated Distal esophagus biopsy. The specimen consists of four irregular fragments of garvin tissue that measure 0.3 to 0.5 cm. The specimen is totally submitted in one cassette. HI 06/17/2025 CPT:00426 ,54934
--- NOTE | 2025-06-17 12:59 | EX.PCM.CON.G ---
HPI Consult Data Date of Consult: 06/17/25 HPI Narrative Reason for Consultation: Dysphagia HPI Narrative: DERRICK BRADSHAW, is a 84-year-old male who presented [facility] ED 06/15/2025 due to chest discomfort that started at 11 AM. Initially started with hiccups that were continuous and then developed the pressure. Sodium 116 with no values since 2022 when that revealed normal sodium, potassium 5.4, BUN of 44 and creatinine 2.30 with no values available since 2022. Troponin found to be 57 and D-dimer 1.48. Chest x-ray with findings suggestive of mild linear scarring at the lung bases. Patient did not have CTA given his kidney dysfunction but with elevated D-dimer and chest pressure he was started on a heparin drip, also given IV fluids for his low sodium. Of note he was given Thorazine for hiccups which did initially resolve his hiccups and at that time the chest pressure went away. He was diagnosed with acute hyponatremia with edema suspect from fluid retention from urinary retention vs mineralocorticoid deficiency. I was asked to see him due to worsening esophageal dysphagia and inability to swallow solid foods. FORMERLY [facility] Medical History CAD (coronary artery disease) of artery bypass graft Diabetes mellitus BPH (benign prostatic hyperplasia) Hypertension Medical History no medical history Home Medications ?Medication ?Instructions ?Recorded ?Last Taken ?Type amlodipine 5 mg tablet 5 mg PO DAILY blood pressure 08/14/19 09/01/19 History atorvastatin 40 mg tablet 40 mg PO QHS cholesterol 08/14/19 08/31/19 History cinnamon bark 500 mg capsule 500 mg PO DAILY supplement 08/14/19 09/01/19 History isosorbide mononitrate 60 mg 60 mg PO 1200 heart 08/14/19 09/01/19 History tablet,extended release 24 hr omega-3 fatty acids-fish oil 684 1 cap PO BID supplement 08/14/19 09/01/19 History mg-1,200 mg capsule,delayed release ascorbic acid (vitamin C) 1,000 mg 1,000 mg PO DAILY supplement 09/01/19 08/31/19 History tablet cyanocobalamin (vitamin B-12) 1,000 mcg PO DAILY supplement 09/01/19 08/31/19 History 1,000 mcg capsule magnesium oxide 400 mg (241.3 mg 400 mg PO DAILY supplement 09/01/19 08/31/19 History magnesium) tablet tamsulosin 0.4 mg capsule 0.8 mg PO QHS as directed 09/01/19 08/31/19 History UBIDE Q10 50 mg PO 1200 supplement 06/15/25 Unknown History amlodipine 10 mg tablet 10 mg PO 1200 BLOOD PRESSURE 06/15/25 Unknown History ascorbic acid (vitamin C) 500 mg 500 mg PO DAILY supplement 06/15/25 Unknown History tablet (C-500) aspirin 81 mg tablet,delayed 81 mg PO 1200 DIRECTED 06/15/25 Unknown History release (Adult Aspirin Regimen) atorvastatin 80 mg tablet 80 mg PO QHS CHOLESTEROL 06/15/25 Unknown History calcitriol 0.25 mcg capsule 0.25 mcg PO .MWF supplement 06/15/25 Unknown History cinnamon bark 500 mg capsule 2,000 mg PO BID supplement 06/15/25 Unknown History (Cinnamon) empagliflozin 25 mg tablet 25 mg PO DAILY DIRECTED 06/15/25 Unknown History (Jardiance) fludrocortisone 0.1 mg tablet 0.1 mg PO 1200 DIRECTED 06/15/25 Unknown History glipizide 2.5 mg tablet, extended 2.5 mg PO DAILY DIABETES 06/15/25 Unknown History release 24 hr hydrochlorothiazide 25 mg tablet 25 mg PO 1200 DIRECTED 06/15/25 Unknown History losartan 100 mg tablet 100 mg PO DAILY DIRECTED 06/15/25 Unknown History metoprolol succinate 100 mg 100 mg PO DAILY heart/ blood 06/15/25 Unknown History tablet,extended release 24 hr pressure sertraline 50 mg tablet 50 mg PO DAILY as directed 06/15/25 Unknown History sitagliptin phosphate 50 mg tablet 50 mg PO 1200 DIRECTED 06/15/25 Unknown History (Januvia) tumeric 1 tab PO DAILY supplement 06/15/25 Unknown History vitamin A 2,400 mcg capsule 2,400 mcg PO DAILY supplement 06/15/25 Unknown History vitamin E 180 mg PO DAILY supplement 06/15/25 Unknown History Allergy/AdvReac Type Severity Reaction Status Date / Time alprazolam (From Xanax) AdvReac Other Verified 06/15/25 12:36 Surgical History Hx of CABG History of coronary artery stent placement Social History Smoking Status: Never smoker ROS Constitutional Constitutional: Denies fatigue, fever(s), poor appetite, weight gain or weight loss Gastrointestinal Gastrointestinal: Denies belching, bloating, change in bowel habits, change in stool character, chewing difficulty, coffee ground emesis, constipation, cramping, diarrhea, dyspepsia, dysphagia, early satiety, excessive flatus, fecal incontinence, heartburn, hematemesis, hematochezia, hemorrhoids, loose stools, melena, nausea, odynophagia, rectal bleeding, tenesmus, vomiting or weight changes Physical Exam Const alert, oriented x3, no apparent distress and healthy appearing General Appearance: cooperative HEENT normocephalic Cardio regular rate GI normal to inspection, nondistended, normoactive bowel sounds, soft to palpation, non-tender and non-distended Auscultation: normoactive bowel sounds Palpation: soft Percussion: normal to percussion Rectal Exam: deferred Bladder / Kidney Exam: catheter in place Extremity no clubbing, cyanosis or edema Extremity Narrative: generalized weakness Skin no rashes or lesions noted General Skin Exam: ecchymosis Neuro Sensorium / Orientation: awake and alert Psych cooperative Lab / Micro Data 06/17/25 04:41 06/17/25 04:41 Labs: Laboratory Results - last 24 hr 06/16/25 12:52: Sodium 114 L*, Potassium 4.9, Chloride 82 L, Carbon Dioxide 19.0 L, Anion Gap 13, BUN 40 H, Creatinine 2.07 H, Estim Creat Clear Calc 28.41 L, Est GFR (MDRD) Non-Af 31 L, BUN/Creatinine Ratio 19.2, Glucose 161 H, Calcium 8.4 06/16/25 14:42: APTT 54.2 H 06/16/25 16:30: POC Glucose 194 H 06/16/25 19:16: Sodium 111 L*, Potassium 4.8, Chloride 81 L, Carbon Dioxide 16.1 L, Anion Gap 14, BUN 40 H, Creatinine 2.06 H, Estim Creat Clear Calc 28.55 L, Est GFR (MDRD) Non-Af 32 L, BUN/Creatinine Ratio 19.3, Glucose 141 H, Calcium 8.3 06/16/25 21:38: APTT 131.0 H*, Sodium 112 L*, Potassium 4.4, Chloride 81 L, Carbon Dioxide 15.1 L, Anion Gap 15, BUN 41 H, Creatinine 2.08 H, Estim Creat Clear Calc 28.27 L, Est GFR (MDRD) Non-Af 31 L, BUN/Creatinine Ratio 19.9, Glucose 124 H, Calcium 8.2 06/16/25 21:54: POC Glucose 122 H 06/17/25 04:41: WBC 8.2, RBC 3.35 L, Hgb 10.5 L, Hct 28.4 L, MCV 84.8, MCH 31.3, MCHC 37.0 H, RDW Std Deviation 37.3, RDW Coeff of Shana 12.4, Plt Count 218, MPV 10.7, Sodium 115 L*, Potassium 4.1, Chloride 85 L, Carbon Dioxide 12.7 L, Anion Gap 17 H, BUN 40 H, Creatinine 2.03 H, Estim Creat Clear Calc 28.97 L, Est GFR (MDRD) Non-Af 32 L, BUN/Creatinine Ratio 19.8, Glucose 97, Calcium 8.1, Phosphorus 4.4, Magnesium 2.0, b-Hydroxybutyric mmol/L 0.5 H 06/17/25 06:10: PT 14.9, INR 1.1, APTT 41.4 H 06/17/25 06:24: POC Glucose 126 H 06/17/25 07:53: Lactic Acid < 1.0 ABG Data ABG results: ABG 06/17/25 08:01 Specimen Type ART Sample Site L Brach pH 7.43 Bicarbonate Actual 20.3 L Total CO2 21 Base Excess -4 L O2 Saturation 96 ABG pCO2 30.4 L ABG pO2 76 O2 Delivery Device Room Air Vent Mode Not entered Imaging Radiology Impression Chest CT 06/17/25 08:16 IMPRESSION: Coronary artery calcification (CAC) is present No acute chest abnormalities. Reading Location: [facility] Assessment & Plan Assessment/Plan (1) Dysphagia: PLAN: The differential diagnosis for esophageal dysphagia does include hyponatremia and mental corticoid deficiency resulting in motility dysfunction. Also on the differential diagnosis is esophageal stricture, esophageal ring, eosinophilic esophagitis, hiatal hernia. The patient will undergo an upper endoscopy to evaluate his upper GI tract. He was explained alternatives, risk, benefits include not withstanding bleeding, infection, sepsis, perforation, need for surgery . He will have an ASA of 3. Charges/Coding Visit Charges Inpatient E&M: 53698 Init Hosp L3
--- NOTE | 2025-06-17 13:22 | OP.EGD_ITS ---
Patient Name: Bahman Hernandez Procedure Date: 06/17/2025 1:04 PM Date of : 1940 Age: 84 Procedure: Upper GI endoscopy Indications: Dysphagia Providers: Manuelito Robins DO Medicines: Monitored Anesthesia Care Patient Profile: This is an 84 year old male. Refer to note in patient chart for documentation of history and physical. Patient has symptoms of dysphagia with solids. Complications: No immediate complications. Procedure: Pre-Anesthesia Assessment: - Prior to the procedure, a History and Physical was performed, and patient medications and allergies were reviewed. The patient is competent. The risks and benefits of the procedure and the sedation options and risks were discussed with the patient. All questions were answered and informed consent was obtained. Patient identification and proposed procedure were verified by the physician in the pre-procedure area. Mental Status Examination: alert and oriented. Airway Examination: normal oropharyngeal airway and neck mobility. Respiratory Examination: clear to auscultation. CV Examination: normal. Prophylactic Antibiotics: The patient does not require prophylactic antibiotics. Prior Anticoagulants: The patient has taken no anticoagulant or antiplatelet agents. ASA Grade Assessment: II - A patient with mild systemic disease. After reviewing the risks and benefits, the patient was deemed in satisfactory condition to undergo the procedure. The anesthesia plan was to use monitored anesthesia care (MAC). Immediately prior to administration of medications, the patient was re-assessed for adequacy to receive sedatives. The heart rate, respiratory rate, oxygen saturations, blood pressure, adequacy of pulmonary ventilation, and response to care were monitored throughout the procedure. The physical status of the patient was re-assessed after the procedure. After obtaining informed consent, the endoscope was passed under direct vision. Throughout the procedure, the patient's blood pressure, pulse, and oxygen saturations were monitored continuously. The gastroscope was introduced through the mouth, and advanced to the second part of duodenum. The upper GI endoscopy was accomplished without difficulty. The patient tolerated the procedure well. Scope In: 1:13:39 PM Scope Out: 1:18:58 PM Total Procedure Duration Time 0 hours 5 minutes 19 seconds Findings: LA Grade B (one or more mucosal breaks greater than 5 mm, not extending between the tops of two mucosal folds) esophagitis with no bleeding was found 39 to 41 cm from the incisors. Biopsies were taken with a cold forceps for histology. Verification of patient identification for the specimen was done. Estimated blood loss was minimal. A moderate Schatzki ring was found at the gastroesophageal junction. A guidewire was placed and the scope was withdrawn. Dilation was performed with a Savary dilator with no resistance at 57 Fr. The dilation site was examined and showed moderate improvement in luminal narrowing. Estimated blood loss was minimal. A hiatal hernia was present. No gross lesions were noted in the entire examined stomach. No gross lesions were noted in the entire examined duodenum. Impression: - LA Grade B erosive esophagitis with no bleeding. Biopsied. - Moderate Schatzki ring. Dilated. - Hiatal hernia. - No gross lesions in the entire stomach. - No gross lesions in the entire examined duodenum. Recommendation: - [facility]. - Resume regular diet today. - Continue present medications. - Await pathology results. - Use Protonix (pantoprazole) 40 mg PO BID indefinitely. Procedure Code(s): --- Professional --- 48824, Esophagogastroduodenoscopy, flexible, transoral; with insertion of guide wire followed by passage of dilator(s) through esophagus over guide wire 72341, 59,51, Esophagogastroduodenoscopy, flexible, transoral; with biopsy, single or multiple CPT copyright 2021 [employer] [place] [employer] [employer]. All rights reserved. The codes documented in this report are preliminary and upon casting house worker review may be revised to meet current compliance requirements. Manuelito Robins DO 06/17/2025 1:21:46 PM This report has been signed electronically. Number of Addenda: 0 Note Initiated On: 06/17/2025 1:04 PM
--- NOTE | 2025-06-17 13:22 | OP.EGD_ITS ---
Patient Name: Bahman Hernandez Procedure Date: 06/17/2025 1:04 PM Date of : 1940 Age: 84 Procedure: Upper GI endoscopy Indications: Dysphagia Providers: Manuelito Robins DO Medicines: Monitored Anesthesia Care Patient Profile: This is an 84 year old male. Refer to note in patient chart for documentation of history and physical. Patient has symptoms of dysphagia with solids. Complications: No immediate complications. Procedure: Pre-Anesthesia Assessment: - Prior to the procedure, a History and Physical was performed, and patient medications and allergies were reviewed. The patient is competent. The risks and benefits of the procedure and the sedation options and risks were discussed with the patient. All questions were answered and informed consent was obtained. Patient identification and proposed procedure were verified by the physician in the pre-procedure area. Mental Status Examination: alert and oriented. Airway Examination: normal oropharyngeal airway and neck mobility. Respiratory Examination: clear to auscultation. CV Examination: normal. Prophylactic Antibiotics: The patient does not require prophylactic antibiotics. Prior Anticoagulants: The patient has taken no anticoagulant or antiplatelet agents. ASA Grade Assessment: II - A patient with mild systemic disease. After reviewing the risks and benefits, the patient was deemed in satisfactory condition to undergo the procedure. The anesthesia plan was to use monitored anesthesia care (MAC). Immediately prior to administration of medications, the patient was re-assessed for adequacy to receive sedatives. The heart rate, respiratory rate, oxygen saturations, blood pressure, adequacy of pulmonary ventilation, and response to care were monitored throughout the procedure. The physical status of the patient was re-assessed after the procedure. After obtaining informed consent, the endoscope was passed under direct vision. Throughout the procedure, the patient's blood pressure, pulse, and oxygen saturations were monitored continuously. The gastroscope was introduced through the mouth, and advanced to the second part of duodenum. The upper GI endoscopy was accomplished without difficulty. The patient tolerated the procedure well. Scope In: 1:13:39 PM Scope Out: 1:18:58 PM Total Procedure Duration Time 0 hours 5 minutes 19 seconds Findings: LA Grade B (one or more mucosal breaks greater than 5 mm, not extending between the tops of two mucosal folds) esophagitis with no bleeding was found 39 to 41 cm from the incisors. Biopsies were taken with a cold forceps for histology. Verification of patient identification for the specimen was done. Estimated blood loss was minimal. A moderate Schatzki ring was found at the gastroesophageal junction. A guidewire was placed and the scope was withdrawn. Dilation was performed with a Savary dilator with no resistance at 57 Fr. The dilation site was examined and showed moderate improvement in luminal narrowing. Estimated blood loss was minimal. A hiatal hernia was present. No gross lesions were noted in the entire examined stomach. No gross lesions were noted in the entire examined duodenum. Impression: - LA Grade B erosive esophagitis with no bleeding. Biopsied. - Moderate Schatzki ring. Dilated. - Hiatal hernia. - No gross lesions in the entire stomach. - No gross lesions in the entire examined duodenum. Recommendation: - [facility] to [facility]. - Resume regular diet today. - Continue present medications. - Await pathology results. - Use Protonix (pantoprazole) 40 mg PO BID indefinitely. Procedure Code(s): --- Professional --- 92441, Esophagogastroduodenoscopy, flexible, transoral; with insertion of guide wire followed by passage of dilator(s) through esophagus over guide wire 92692, 59,51, Esophagogastroduodenoscopy, flexible, transoral; with biopsy, single or multiple CPT copyright 2021 [employer]. All rights reserved. The codes documented in this report are preliminary and upon office supervisor review may be revised to meet current compliance requirements. Manuelito Robins DO 06/17/2025 1:21:46 PM This report has been signed electronically. Number of Addenda: 0 Note Initiated On: 06/17/2025 1:04 PM
--- NOTE | 2025-06-17 13:22 | OP.PROVAT_ITS ---
06/17/2025 Chris Fried Re : Upper GI endoscopy procedure for Bahman Lowryr Fariha This procedure was performed on May. My impressions and recommendations are as follows: Impressions : - LA Grade B erosive esophagitis with no bleeding. Biopsied. - Moderate Schatzki ring. Dilated. - Hiatal hernia. - No gross lesions in the entire stomach. - No gross lesions in the entire examined duodenum. Recommendations : - [facility] patient to [facility]. - Resume regular diet today. - Continue present medications. - Await pathology results. - Use Protonix (pantoprazole) 40 mg PO BID indefinitely. My findings are described in the full procedure note, which is enclosed. If I can be of further assistance, please feel free to contact me at . Sincerely, Manuelito Robins, 06/17/2025 1:21:46 PM This report has been signed electronically.
--- NOTE | 2025-06-17 13:33 | PCM.POST.ANE ---
Anesthesia: Postop Eval I Current Vital Signs Temperature: 97.3 F Pulse Rate: 60 Blood Pressure: 116/69 Respiratory Rate: 16 Pulse Ox: 97 Oxygen Delivery Method: Room Air Assessment Airway patent: Yes Spontaneous unlabored respirations: Yes Mental status: Asleep nausea: No Vomiting: No Anesthesia Complication: No Fluid Hydration Crystalloid volume administer (ml): 200 Total IV fluid infused: 200 Progress Note Anesthesia document: Postop Eval 1 completed: Yes
--- NOTE | 2025-06-17 14:28 | PCM.POSTANE2 ---
Anesthesia Postop Eval I Sum Postop Eval Completion status Anesthesia document: Postop Eval 1 completed: Yes Anesthesia Postop Eval I Summary Anesthesia Postop Eval I Summary: Anesthesia Postop Eval I: Assessment Summary Airway patent Yes 06/17/25 13:34 [email or web address] Spontaneous unlabored Yes 06/17/25 13:34 [email or web address] respirations Mental status Asleep 06/17/25 13:34 [email or web address] nausea No 06/17/25 13:34 [email or web address] Vomiting No 06/17/25 13:34 [email or web address] Anesthesia Postop Eval I: Fluid Summary Crystalloid volume administer 200 06/17/25 13:34 [email or web address] (ml) Colloids volume administered ( ml) Blood Product volume administered (ml) Total IV fluid infused 200 06/17/25 13:34 [email or web address] Anesthesia Postop Eval I: Summary Notes Anesthesia Complication No 06/17/25 13:34 [email or web address] Anesthesia Complication Comment: Post-operative progress note Anesthesia: Postop Eval II Evaluation Mental status: Awake and Calm Pain Level: 0 nausea: No Vomiting: No Complications Anesthesia Complication: No
[2025-06-17 15:09] LABS: Anion Gap 12 (5-15); BUN 39 mg/dL (4-19); BUN/Creat Ratio 19.8 RATIO (10-20); Calcium,Total 8.3 mg/dL (7.6-11.0); Carbon Dioxide 19.2 mmol/L (21.0-32.0); Chloride 87 mmol/L (98-108); Estimated Creatinine Clearance 30.16 ml/min (50-250); Glucose 116 mg/dL (70-99); Potassium 4.4 mmol/L (3.3-5.1)
[2025-06-17] MEDS: Metoprolol(XL)Succ 100 MG Tablet PO (15:22)
[2025-06-17] MEDS: Magnesium Chloride 64 MG Delay Rel.Tablet 128 MG PO (15:22)
[2025-06-17] MEDS: LINAGLIPTIN 5 MG TABLET PO (15:23)
--- NOTE | 2025-06-17 16:01 | CHAPLAIN ---
Type of Pastoral Visit _x__ Initial Visit ___ Follow-up Visit ___ On-call Visit ___ General Patient Visit ___ Spiritual Assessment ___ Family Conference ___ Bereavement ___ Rapid Response ___ Code Blue ___ Other (describe below) Pastoral Care Referral From ___ Patient _x__ Family ___ Nurse ___ Physician ___ Domestic Violence Counselor ___ Fish Pitcher ___ Other (describe below) Sacrament/Intervention _x__ Active listening ___ Anointing ___ Alevism ___ Bereavement ___ Communion ___ Adina exploration ___ _x__ Life review _x__ Prayer ___ Reconciliation ___ Sacrament of Sick _x__ Supportive presence ___ Wedding ___ Other (describe below) Pastoral Comments patient is welcoming but somewhat slow to answer questions and referred to his son and a friend in the room to verify his answers; 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
[2025-06-18 03:20] VITALS: BP 131/78; PULSE 59; RESP 12; TEMP 36.8; O2SAT 96
[2025-06-18 05:30] LABS: Hematocrit 28.0 % (40-54); Hemoglobin 10.3 g/dL (13.0-16.5); Immature Granulocytes Count 0.030 X10^3/uL (0.0-0.0); Mean Corp Hgb Conc 36.8 g/dL (32-36); Mean Corpuscular Volume 86.4 fL (80-94); Mean Platelet Vol. 10.0 fl (6.2-12.0); NRBC Flagged by Analyzer 0 % (0-5); Platelet Count 202 K/mm3 (150-450); RBC Distribution Width CV 12.7 % (11.6-14.6); RBC Distribution Width SD 39.6 fl (35.1-43.9); Red Blood Count 3.24 M/mm3 (4.6-6.2); White Blood Count 8.2 K/mm3 (4.4-11.0)
[2025-06-18 06:17] LABS: AST(SGOT) 29 U/L (<=37); Alanine Aminotransfer ALT/SGPT 15 U/L (<=46); Albumin, Serum 3.9 g/dL (3.4-4.8); Alkaline Phosphatase 57 U/L (40-129); Anion Gap 14 (5-15); BUN 44 mg/dL (4-19); BUN/Creat Ratio 19.4 RATIO (10-20); Calcium,Total 8.2 mg/dL (7.6-11.0); Carbon Dioxide 17.3 mmol/L (21.0-32.0); Chloride 89 mmol/L (98-108); Estimated Creatinine Clearance 26.14 ml/min (50-250); Globulin 3.3 g/dL (2.2-4.2); Glucose 117 mg/dL (70-99); Magnesium 2.2 mg/dL (1.5-2.2); Potassium 4.0 mmol/L (3.3-5.1)
--- NOTE | 2025-06-18 08:57 | PCM.PN.HOSP ---
Reason for Visit Chief Complaint: Hiccups and chest pressure Objective Data Objective Data Vital Signs: Vital Signs Temp Pulse Resp BP Pulse Ox O2 Del Method 98.2 F 59 L 12 131/78 H 96 Room Air 06/18/25 03:20 06/18/25 03:20 06/18/25 03:20 06/18/25 03:20 06/18/25 03:20 06/18/25 07:55 Oxygen Delivery Method Room Air Weight: 187 lb 6.287 oz Body Mass Index (BMI) 26.9 Intake & Output: Intake and Output for Last 24 Hours 06/16/25 06/17/25 06/18/25 23:59 23:59 23:59 Intake Total 994.73 / 1114.73 1332.75 / 1332.75 Output Total 3250 / 3550 3853 / 3853 550 / 550 Balance -2255.27 / -2435.27 -2520.25 / -2520.25 -550 / -550 Lab / Micro Data 06/18/25 05:03 06/18/25 05:03 Labs: Laboratory Results - last 24 hr 06/17/25 14:07: Sodium 118 L*, Potassium 4.4, Chloride 87 L, Carbon Dioxide 19.2 L, Anion Gap 12, BUN 39 H, Creatinine 1.95 H, Estim Creat Clear Calc 30.16 L, Est GFR (MDRD) Non-Af 34 L, BUN/Creatinine Ratio 19.8, Glucose 116 H, Calcium 8.3 06/17/25 17:45: POC Glucose 142 H 06/17/25 22:06: POC Glucose 132 H 06/18/25 05:03: WBC 8.2, RBC 3.24 L, Hgb 10.3 L, Hct 28.0 L, MCV 86.4, MCH 31.8, MCHC 36.8 H, RDW Std Deviation 39.6, RDW Coeff of Shana 12.7, Plt Count 202, MPV 10.0, Immature Gran % (Auto) 0.400, Neut % (Auto) 67.5, Lymph % (Auto) 17.7 L, Harnett % (Auto) 12.2 H, Eos % (Auto) 2.0, Baso % (Auto) 0.2, Absolute Neuts (auto) 5.5, Absolute Lymphs (auto) 1.45, Nucleated RBC % 0, Sodium 120 L, Potassium 4.0, Chloride 89 L, Carbon Dioxide 17.3 L, Anion Gap 14, BUN 44 H, Creatinine 2.25 H, Estim Creat Clear Calc 26.14 L, Est GFR (MDRD) Non-Af 28 L, BUN/Creatinine Ratio 19.4, Glucose 117 H, Calcium 8.2, Phosphorus 4.8 H, Magnesium 2.2, Total Bilirubin 0.88, AST 29, ALT 15, Alkaline Phosphatase 57, Total Protein 7.2, Albumin 3.9, Globulin 3.3, Albumin/Globulin Ratio 1.2 06/18/25 06:27: POC Glucose 117 H Micro: Microbiology 06/15/25 17:54 Mucosa - Nasopharyngeal Coronavirus COVID-19 PCR - Final 06/15/25 17:54 Mucosa - Nasopharyngeal Respiratory Panel (PCR) - Final Radiography Diagnostic Testing: Radiology Impression Venous Doppler Study 06/16/25 21:46 Interpretation Summary Deep veins of the lower extremities are bilaterally patent and compressible segmentally. There is no evidence of deep vein thrombosis on either side. Valvular competence appears intact within the proximal deep venous systems bilaterally. The great saphenous veins appear bilaterally patent and compressible segmentally. Ordering Physician: Sharmila Perez Performed By: Samuel Pineda, RVT Chest CT 06/17/25 08:16 IMPRESSION: Coronary artery calcification (CAC) is present No acute chest abnormalities. Reading Location: [facility] Physical Exam Narrative Patient complaining of sometimes hesitancy and mild frequency. Denies trabeculation. Did not prior urine retention before admission. On the day of admission and 90 required couple of times straight cath and then Jerome catheterization on 06/16. Sodium gradually increased from 115-120. Denies history of smoking but had couple months of pipes in his 30s. No history of PE or DVT Physical exam General: Alert, Oriented x3, Cooperative HEENT: Atraumatic, PERRLA, EOMI, Normocephalic. Oral: No Gingival or Mucosal Lesions/ Ulcerations Neck: Supple, No JVD, Negative Carotid Bruits Chest wall/Lungs: Air entry diminished in bilateral lung bases. No crepitation/rhonchi Cardiovascular: Regular rate and rhythm, Normal S1,S2, No M/G/R Abdomen: Bowel Sounds Present, Soft, Non Tender, Non-Distended : No dysuria. No renal angle tenderness. No suprapubic tenderness. Extremities: No edema, Capillary Refill Less than 3 Seconds Skin: No rashes, No breakdown Musculoskeletal: No Tenderness to Palpation of Joints or Extremities Neurological: Cranial nerves II-XII grossly intact, DTR 2+/4. No acute focal neurological deficit. Psych/Mental Status: Normal Affect, Appropriate. Assessment & Plan Assessment/Plan (1) Mineralocorticoid deficiency: (2) Acute hyperkalemia: (3) Acute hyponatremia: (4) Dysphagia: (5) Urinary retention: PLAN: Plan 84-year-old gentleman came to ED with complaint of chest discomfort since around 11 AM on the day of admission. Initially started with hiccups that are continuing. Chest pain was localized more like a pressure. Hyponatremia secondary to mineralocorticoid deficiency - Appears to be fairly acute as labs from about 1-1/2 to 2 weeks ago sodium was 136 - Patient on fludrocortisone at baseline but does not appear to be taking it - Continue sodium tablets 1 g 3 times daily - Increase fludrocortisone to 0.2 mg daily - Continue fluid restriction - Nephrology is following Troponin elevation and D-dimer elevation - Troponins 57, 52 and 46 decreasing trend. proBNP normal 1109. Mild troponin elevation nonischemic in nature, due to acute myocardial injury from increased cardiac demand. -Patient started was on heparin drip in ED - Echocardiogram shows EF of 65% with stage I diastolic dysfunction, moderate left atrial enlargement, moderate mitral valve insufficiency, mild tricuspid valve insufficiency and mildly calcified aortic leaflets with sclerosis and no stenosis D-dimer elevation probably acute phase reactant from multiple active things including hyponatremia, dysphagia and hiccup with CKD stage IV: He coughed resolved. Chest x-ray shows mild linear scarring but chest CT was done which shows lungs are airways clear. VQ scan ordered though clinically low to moderate probability of of PE. Venous duplex negative - Patient has baseline renal dysfunction so not a candidate for CTA -Venous duplex negative for acute DVT or deep venous valve incompetence - Heparin drip was discontinued and Modified Wells criteria for PE is 0 CKD stage IV - Serum creatinine seems to be running between 1.9 and 2.1 and currently remains at baseline - I's and O's - Nephrology is following - Avoid nephrotoxins Anion gap metabolic acidosis - Evaluation with ABG is not consistent with findings on BMP -pH was 7.43 - Repeat BMP in a.m. - BMP was referred to lab for reevaluation and scrutiny - Lactic acid unremarkable - Beta-hydroxybutyrate at 0.5 consistent with starvation not DKA Dysphagia secondary to grade B esophagitis and Schatzki's ring - MBS performed and concern for esophageal narrowing - EGD done on 06/17/2025 that showed grade B erosive esophagitis with no bleeding that was biopsied and Schatzki's ring that was dilated along with a hiatal hernia - Add Protonix 40 mg p.o. 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 DM-2 -Glucose checks and sliding scale insulin - Hold home oral agents DVT prophylaxis - Continue heparin drip with plans to discontinue and transition to subcu heparin if Dopplers are negative CODE STATUS - Full code
--- NOTE | 2025-06-18 09:00 | NM_ITS ---
PROCEDURE: LUNG SCAN VENT/PERF REASON FOR EXAM: HIGH D-DIMER COMPARISON: Chest CT of 06/17/2025. TECHNIQUE: Procedure Code: NMVLS Modality: MN Procedure: Nuclear medicine lung ventilation perfusion study. 5.8 mCi Tc-99m MAA intravenously for the perfusion component of the examination. Inhalation of 48.5 millicurie technetium 99 M DTPA, for the ventilation component of the examination. Anterior, posterior, right and left lateral, MARCIAL, RAYMUNDO, RPO, and LPO perfusion and ventilation images. FINDINGS: The examination is limited by poor inspiration on the ventilation component of the examination, with extensive central airway deposition, including the trachea. Perfusion images show no significant inhomogeneity or defect. No ventilation perfusion mismatch is seen. NM/Lung Scan Vent/Perf IMPRESSION: Very low probability of acute pulmonary embolism. Reading Location: [address]
--- NOTE | 2025-06-18 09:00 | NM_ITS ---
PROCEDURE: LUNG SCAN VENT/PERF REASON FOR EXAM: HIGH D-DIMER COMPARISON: Chest CT of 06/17/2025. TECHNIQUE: Procedure Code: NMVLS Modality: MT Procedure: Nuclear medicine lung ventilation perfusion study. 5.8 mCi Tc-99m MAA intravenously for the perfusion component of the examination. Inhalation of 48.5 millicurie technetium 99 M DTPA, for the ventilation component of the examination. Anterior, posterior, right and left lateral, MARCIAL, RAYMUNDO, RPO, and LPO perfusion and ventilation images. FINDINGS: The examination is limited by poor inspiration on the ventilation component of the examination, with extensive central airway deposition, including the trachea. Perfusion images show no significant inhomogeneity or defect. No ventilation perfusion mismatch is seen. NM/Lung Scan Vent/Perf IMPRESSION: Very low probability of acute pulmonary embolism. Reading Location: [address]
[2025-06-18] MEDS: Magnesium Chloride 64 MG Delay Rel.Tablet 128 MG PO (09:02)
[2025-06-18 09:10] VITALS: BP 126/63; PULSE 58; RESP 17; TEMP 36.2; O2SAT 98
--- NOTE | 2025-06-18 10:15 | DCINST_ITS ---
Discharge Instructions DC O2, CPAP, BIPAP needs Home O2 Discharge instructions: No Dressing / Incision Discharge Activity: Return to Normal Activity Weight Bearing Status: Weight bearing as tolerated Dressing / Incision Call your doctor if you observe: Fever of 101 or Higher, Coldness, Increased Pain, Numbness or Tingling, Change in Color, Inability to urinate, Inability to have a bowel movement, Shortness of breath, Dizziness, Fainting spells, Swelling in the ankles, Chest pain, Prolonged hiccupping, Increased palpitations (irregular heartbeat) and Calf discomfort Follow Up Care When: IN 2 WEEKS Test Results: Test results from this visit will be discussed in further detail at your follow- up appointment, if applicable. Discharge Plan Admission Admit Date/Time: 06/15/25 15:15 Attending Provider: Ramakrishna Pastrana Primary Care Provider: Chris Fried Consulting Providers: Jeffery Mejía; Francesca Burrell; Roseanna Perez; Sharmila Perez Discharge Orders/Prescriptions Prescriptions: New sennosides-docusate sodium [Stimulant Laxative Plus] 8.6-50 mg Tablet 2 tab PO BID PRN PRN (Reason: Constipation) Qty: 0 0RF pantoprazole 40 mg Tablet,Delayed Release (Dr/Ec) 40 mg PO DAILY 30 Days Qty: 30 3RF fludrocortisone 0.1 mg Tablet 0.2 mg PO 1200 30 Days Qty: 60 2RF sodium chloride 1,000 mg Tablet,Soluble 1,000 mg PO TID 30 Days Qty: 90 0RF Continued atorvastatin 40 MG tablet 40 mg PO QHS isosorbide mononitrate 60 MG tablet 60 mg PO 1200 omega-3 fatty acids-fish oil 1 EACH capsule,delayed release(DR/EC) 1 cap PO BID ascorbic acid (vitamin C) 1,000 MG tablet 1,000 mg PO DAILY tamsulosin 0.4 MG capsule 0.8 mg PO QHS cyanocobalamin (vitamin B-12) 1,000 MCG capsule 1,000 mcg PO DAILY magnesium oxide 400 MG tablet 400 mg PO DAILY cinnamon bark [Cinnamon] 500 mg capsule 2,000 mg PO BID metoprolol succinate 100 mg tablet extended release 24 hr 100 mg PO DAILY sertraline 50 mg tablet 50 mg PO DAILY vitamin A 2,400 mcg capsule 2,400 mcg PO DAILY ascorbic acid (vitamin C) [C-500] 500 mg tablet 500 mg PO DAILY vitamin E 180 mg PO DAILY calcitriol 0.25 mcg capsule 0.25 mcg PO .[facility] Rx Instructions: TAKES IN EVENING glipizide 2.5 mg tablet extended release 24hr 2.5 mg PO DAILY Jardiance 25 mg tablet 25 mg PO DAILY Januvia 50 mg tablet 50 mg PO 1200 losartan 100 mg tablet 100 mg PO DAILY amlodipine 10 mg tablet 10 mg PO 1200 aspirin [Adult Aspirin Regimen] 81 mg tablet,delayed release (DR/EC) 81 mg PO 1200 atorvastatin 80 mg tablet 80 mg PO QHS Discontinued amlodipine 5 MG tablet 5 mg PO DAILY cinnamon bark 500 MG capsule 500 mg PO DAILY tumeric 538 mg 1 tab PO DAILY UBIDE Q10 50 mg PO 1200 fludrocortisone 0.1 mg tablet 0.1 mg PO 1200 hydrochlorothiazide 25 mg tablet 25 mg PO 1200 Referrals / Follow Up: Chris Fried MD [Primary Care Provider, Family Practice] - Within 2 Weeks Roseanna Perez DO [Med Staff - Consulting, Nephrology] - Within 2 Weeks Jeff Armstrong MD [Med Staff - Active Staff, Urology] - Within 1 Week Referral Note: For urine retention. Disposition Disposition (needs filled in before D/C Order can be placed): Home, Self Care
[2025-06-18 11:38] VITALS: PULSE 62
[2025-06-18] MEDS: Metoprolol(XL)Succ 100 MG Tablet PO (11:38)
--- NOTE | 2025-06-18 11:39 | CASEMGMT ---
CRISTELA DUPREE reviewed progress with therapy. Patient did well ambulating 400ft with therapy. CRISTELA DUPREE in to discuss discharge plan with patient, caregiver Sofiya at bedside. CRISTELA DUPREE reviewed C vs outpatient therapy. Patient would like outpatient therapy and would like to schedule on his own. CRISTELA DUPREE discuss walker at discharge, patient agreeable and prefers [employer]. Patient had no further questions or concerns. CRISTELA DUPREE to assist with outpatient therapy and walker at discharge.
[2025-06-18] MEDS: LINAGLIPTIN 5 MG TABLET PO (13:37)
--- NOTE | 2025-06-18 14:33 | DS.PCM_ITS ---
Providers Date of Admission: 06/15/25 Date of Discharge: 06/18/25 Primary Care Physician: Dr. 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 Initially started with hiccups that are continuing. Chest pain was localized more like a pressure. Hyponatremia secondary to mineralocorticoid deficiency - Appears to be fairly acute as labs from about 1-1/2 to 2 weeks ago sodium was 136 - Patient on fludrocortisone at baseline but does not appear to be taking it - Continue sodium tablets 1 g 3 times daily - Increase fludrocortisone to 0.2 mg daily - Continue fluid restriction - 06/18: Shows gradual increase in serum sodium from 115-120. Prescription given for sodium tablet and fludrocortisone 0.2 mg daily. Advised fluid restriction. Follow-up with opinion polls survey worker Dr. Perez in 2 weeks. [employer] note reviewed. TTKG less than 6 suggesting mineralocorticoid deficiency Troponin elevation and D-dimer elevation - Troponins 57, 52 and 46 decreasing trend. proBNP normal 1109. Mild troponin elevation nonischemic in nature, due to acute myocardial injury from increased cardiac demand. -Patient started was on heparin drip in ED - Echocardiogram shows EF of 65% with stage I diastolic dysfunction, moderate left atrial enlargement, moderate mitral valve insufficiency, mild tricuspid valve insufficiency and mildly calcified aortic leaflets with sclerosis and no stenosis D-dimer elevation probably acute phase reactant from multiple active things including hyponatremia, dysphagia and hiccup with CKD stage IV: He coughed resolved. Chest x-ray shows mild linear scarring but chest CT was done which shows lungs are airways clear. VQ scan ordered though clinically low to moderate probability of of PE. Venous duplex negative - Patient has baseline renal dysfunction so not a candidate for CTA -Venous duplex negative for acute DVT or deep venous valve incompetence - Heparin drip was discontinued and Modified Wells criteria for PE is 0 CKD stage IV - Serum creatinine seems to be running between 1.9 and 2.1 and currently remains at baseline - I's and O's - Nephrology is following - Avoid nephrotoxins 06/18 continue follow-up with opinion polls survey worker Possible high anion gap metabolic acidosis difficult to ambulate due to inaccurate bicarb in [facility] - Evaluation with ABG is not consistent with findings on [facility] 06/17-pH was 7.43, pCO2 30.4, low normal, bicarb 21. On 06/15 VBG 7.48, mixed pCO2 28, total CO2 22. These were done on 2 different days. Bicarb on [facility] on 06/17; 19 with AG 12 - Lactic acid unremarkable - Beta-hydroxybutyrate at 0.5 consistent with starvation not DKA Dysphagia secondary to grade B esophagitis and Schatzki's ring - MBS performed and concern for esophageal narrowing - EGD done on 06/17/2025 that showed grade B erosive esophagitis with no bleeding that was biopsied and Schatzki's ring that was dilated along with a hiatal hernia - Add Protonix 40 mg p.o. twice daily--> discontinue IV Protonix - Speech therapy is following - Diet per speech therapy recommendations 06/18 EGD shows LA grade B erosive esophagitis discharged on pantoprazole 40 mg daily. Hx of CAD/essential hypertension/hyperlipidemia -w/ previous stenting and CABG -continue home amlodipine -continue home aspirin - continue home atorvastatin - Continue home Jardiance - Continue home isosorbide mononitrate - Continue home losartan - continue metoprolol Acute urinary retention on chronic BPH with bladder outlet obstruction -06/18: Patient had several episode of urinary retention on day of admission the next day on 06/16 Jerome catheter was inserted. On Flomax 0.8 mg daily. Spontaneous voiding trial and if patient retains will need to catheter and discharged home with Jerome catheter. Follow-up with Dr. Armstrong in 1 week. GERD - Continue PPI but transition to p.o. DM-2 -Glucose checks and sliding scale insulin 06/18: Home medication resumed DVT prophylaxis - Continue heparin drip with plans to discontinue and transition to subcu heparin if Dopplers are negative CODE STATUS - Full code Medications at Discharge Home Medications atorvastatin 40 mg tablet 40 mg PO QHS cholesterol 08/14/19 isosorbide mononitrate 60 mg tablet,extended release 24 hr 60 mg PO 1200 heart 08/14/19 omega-3 fatty acids-fish oil 684 mg-1,200 mg capsule,delayed release 1 cap PO BID supplement 08/14/19 ascorbic acid (vitamin C) 1,000 mg tablet 1,000 mg PO DAILY supplement 09/01/19 cyanocobalamin (vitamin B-12) 1,000 mcg capsule 1,000 mcg PO DAILY supplement 09/01/19 magnesium oxide 400 mg (241.3 mg magnesium) tablet 400 mg PO DAILY supplement 09/01/19 tamsulosin 0.4 mg capsule 0.8 mg PO QHS as directed 09/01/19 amlodipine 10 mg tablet 10 mg PO 1200 BLOOD PRESSURE 06/15/25 ascorbic acid (vitamin C) 500 mg tablet (C-500) 500 mg PO DAILY supplement 06/15/25 aspirin 81 mg tablet,delayed release (Adult Aspirin Regimen) 81 mg PO 1200 DIRECTED 06/15/25 calcitriol 0.25 mcg capsule 0.25 mcg PO .MWF supplement 06/15/25 empagliflozin 25 mg tablet (Jardiance) 25 mg PO DAILY DIRECTED 06/15/25 glipizide 2.5 mg tablet, extended release 24 hr 2.5 mg PO DAILY DIABETES 06/15/25 losartan 100 mg tablet 100 mg PO DAILY DIRECTED 06/15/25 metoprolol succinate 100 mg tablet,extended release 24 hr 100 mg PO DAILY heart/ blood pressure 06/15/25 sertraline 50 mg tablet 50 mg PO DAILY as directed 06/15/25 sitagliptin phosphate 50 mg tablet (Januvia) 50 mg PO 1200 DIRECTED 06/15/25 vitamin A 2,400 mcg capsule 2,400 mcg PO DAILY supplement 06/15/25 vitamin E 180 mg PO DAILY supplement 06/15/25 fludrocortisone 0.1 mg tablet 0.2 mg (2 x 0.1 mg) PO 1200 30 days #60 tabs 06/18/25 pantoprazole 40 mg tablet,delayed release 40 mg PO DAILY 30 days #30 tabs 06/18/25 sennosides 8.6 mg-docusate sodium 50 mg tablet (Stimulant Laxative Plus) 2 tab PO BID PRN PRN Constipation #0 tabs 06/18/25 sodium chloride 1,000 mg soluble tablet 1,000 mg PO TID 30 days #90 tabs 06/18/25 Physical Exam Narrative Patient complaining of sometimes hesitancy and mild frequency. Denies trabeculation. Did not prior urine retention before admission. On the day of admission and 90 required couple of times straight cath and then Jerome catheterization on 06/16. Sodium gradually increased from 115-120. Denies history of smoking but had couple months of pipes in his 30s. No history of PE or DVT Physical exam General: Alert, Oriented x3, Cooperative HEENT: Atraumatic, PERRLA, EOMI, Normocephalic. Oral: No Gingival or Mucosal Lesions/ Ulcerations Neck: Supple, No JVD, Negative Carotid Bruits Chest wall/Lungs: Air entry diminished in bilateral lung bases. No crepitation/rhonchi Cardiovascular: Regular rate and rhythm, Normal S1,S2, No M/G/R Abdomen: Bowel Sounds Present, Soft, Non Tender, Non-Distended : Jerome catheter clear urine no dysuria. No renal angle tenderness. No suprapubic tenderness. Extremities: No edema, Capillary Refill Less than 3 Seconds Skin: No rashes, No breakdown Musculoskeletal: No Tenderness to Palpation of Joints or Extremities Neurological: Cranial nerves II-XII grossly intact, DTR 2+/4. No acute focal neurological deficit. Psych/Mental Status: Normal Affect, Appropriate. Weight / BMI Weight Weight: 187 lb 6.287 oz Body Mass Index (BMI) 26.9 ABG / Lab / Microbiology Data 06/18/25 05:03 06/18/25 05:03 Laboratory: Laboratory Results - last 24 hr 06/17/25 14:07: Sodium 118 L*, Potassium 4.4, Chloride 87 L, Carbon Dioxide 19.2 L, Anion Gap 12, BUN 39 H, Creatinine 1.95 H, Estim Creat Clear Calc 30.16 L, E st GFR (MDRD) Non-Af 34 L, BUN/Creatinine Ratio 19.8, Glucose 116 H, Calcium 8.3 06/17/25 17:45: POC Glucose 142 H 06/17/25 22:06: POC Glucose 132 H 06/18/25 05:03: WBC 8.2, RBC 3.24 L, Hgb 10.3 L, Hct 28.0 L, MCV 86.4, MCH 31.8, MCHC 36.8 H, RDW Std Deviation 39.6, RDW Coeff of Shana 12.7, Plt Count 202, MPV 10.0, Immature Gran % (Auto) 0.400, Neut % (Auto) 67.5, Lymph % (Auto) 17.7 L, M omer % (Auto) 12.2 H, Eos % (Auto) 2.0, Baso % (Auto) 0.2, Absolute Neuts (auto) 5.5, Absolute Lymphs (auto) 1.45, Nucleated RBC % 0, Sodium 120 L, Potassium 4.0, Chloride 89 L, Carbon Dioxide 17.3 L, Anion Gap 14, BUN 44 H, Creatinine 2.25 H, Estim Creat Clear Calc 26.14 L, Est GFR (MDRD) Non-Af 28 L, BUN/Creatinine Ratio 19.4, Glucose 117 H, Calcium 8.2, Phosphorus 4.8 H, Magnesium 2.2, Total Bilirubin 0.88, AST 29, ALT 15, Alkaline Phosphatase 57, Total Protein 7.2, Albumin 3.9, Globulin 3.3, Albumin/Globulin Ratio 1.2 06/18/25 06:27: POC Glucose 117 H 06/18/25 11:17: POC Glucose 149 H Microbiology: Microbiology 06/15/25 17:54 Mucosa - Nasopharyngeal Coronavirus COVID-19 PCR - Final 06/15/25 17:54 Mucosa - Nasopharyngeal Respiratory Panel (PCR) - Final Radiography Diagnostic Testing: Radiology Impression Venous Doppler Study 06/16/25 21:46 Interpretation Summary Deep veins of the lower extremities are bilaterally patent and compressible segmentally. There is no evidence of deep vein thrombosis on either side. Valvular competence appears intact within the proximal deep venous systems bilaterally. The great saphenous veins appear bilaterally patent and compressible segmentally. Ordering Physician: Sharmila Perez Performed By: Samuel Pineda RVT Lung Scan-VQ NM 06/18/25 09:00 IMPRESSION: Very low probability of acute pulmonary embolism. Reading Location: [address] D/C Instructions Weight Bearing Status: Weight bearing as tolerated Call your doctor if you observe: Fever of 101 or Higher, Coldness, Increased Pain, Numbness or Tingling, Change in Color, Inability to urinate, Inability to have a bowel movement, Shortness of breath, Dizziness, Fainting spells, Swelling in the ankles, Chest pain, Prolonged hiccupping, Increased palpitations (irregular heartbeat) and Calf discomfort DC O2, CPAP, BIPAP Needs Home O2 Discharge instructions: No When: IN 2 WEEKS Meaningful Use Info Meaningful Use Meaningful Use Diagnoses (Choose all that apply): None applicable Discharge Plan Admission Admit Date/Time: 06/15/25 15:15 Primary Reason for Your Visit: Severe hyponatremia, hyperkalemia, CKD stage IV Attending Provider: Ramakrishna Pasrtana Primary Care Provider: Chris Fried Consulting Providers: Jeffery Mejía; Francesca Burrell; Roseanna Perez; Sharmila Perez Discharge Orders/Prescriptions Prescriptions: New sennosides-docusate sodium [Stimulant Laxative Plus] 8.6-50 mg Tablet 2 tab PO BID PRN PRN (Reason: Constipation) Qty: 0 0RF pantoprazole 40 mg Tablet,Delayed Release (Dr/Ec) 40 mg PO DAILY 30 Days Qty: 30 3RF fludrocortisone 0.1 mg Tablet 0.2 mg PO 1200 30 Days Qty: 60 2RF sodium chloride 1,000 mg Tablet,Soluble 1,000 mg PO TID 30 Days Qty: 90 0RF Continued atorvastatin 40 MG tablet 40 mg PO QHS isosorbide mononitrate 60 MG tablet 60 mg PO 1200 omega-3 fatty acids-fish oil 1 EACH capsule,delayed release(DR/EC) 1 cap PO BID ascorbic acid (vitamin C) 1,000 MG tablet 1,000 mg PO DAILY tamsulosin 0.4 MG capsule 0.8 mg PO QHS cyanocobalamin (vitamin B-12) 1,000 MCG capsule 1,000 mcg PO DAILY magnesium oxide 400 MG tablet 400 mg PO DAILY metoprolol succinate 100 mg tablet extended release 24 hr 100 mg PO DAILY sertraline 50 mg tablet 50 mg PO DAILY vitamin A 2,400 mcg capsule 2,400 mcg PO DAILY ascorbic acid (vitamin C) [C-500] 500 mg tablet 500 mg PO DAILY vitamin E 180 mg PO DAILY calcitriol 0.25 mcg capsule 0.25 mcg PO .MWF Rx Instructions: TAKES IN EVENING glipizide 2.5 mg tablet extended release 24hr 2.5 mg PO DAILY Jardiance 25 mg tablet 25 mg PO DAILY Januvia 50 mg tablet 50 mg PO 1200 losartan 100 mg tablet 100 mg PO DAILY amlodipine 10 mg tablet 10 mg PO 1200 aspirin [Adult Aspirin Regimen] 81 mg tablet,delayed release (DR/EC) 81 mg PO 1200 Discontinued amlodipine 5 MG tablet 5 mg PO DAILY cinnamon bark 500 MG capsule 500 mg PO DAILY cinnamon bark [Cinnamon] 500 mg capsule 2,000 mg PO BID tumeric 538 mg 1 tab PO DAILY UBIDE Q10 50 mg PO 1200 fludrocortisone 0.1 mg tablet 0.1 mg PO 1200 hydrochlorothiazide 25 mg tablet 25 mg PO 1200 atorvastatin 80 mg tablet 80 mg PO QHS Referrals / Follow Up: Chris Fried MD [Primary Care Provider, Family Practice] - Within 2 Weeks Roseanna Perez DO [Med Staff - Consulting, Nephrology] - Within 2 Weeks Jeff Armstrong MD [Med Staff - Active Staff, Urology] - Within 1 Week Referral Note: For urine retention. Disposition Disposition (needs filled in before D/C Order can be placed): Home, Self Care Charges/Coding Visit Charges Inpatient E&M: 40584 Disch Hosp >30min
[2025-06-18 15:00] VITALS: BP 129/65; PULSE 58; RESP 16; TEMP 36.7; O2SAT 98
--- NOTE | 2025-06-18 15:00 | CASEMGMT ---
CRISTELA DUPREE updated hospitalist regarding outpatient therapy and walker at discharge, scripts received. Referral sent to [facility] and walker provided from [facility]. CRISTELA DUPREE in to provide patient with outpatient therapy script and walker, son and DIL at bedside. Son and daughter in law concerned and states they feel patient is not able to go home with lund. Nurse currently at bedside stating patient voided and currently completing bladder scan and states patient does not need lund at discharge. Patient states he wants to go home. CRISTELA DUPREE reviewed how patient did with therapy and that insurance would not approve patient to go to SNF since he was able to ambulate 400ft twice today. Son and DIL voiced understanding. CRISTELA DUPREE provided DIL with script for outpatient therapy and information for [facility]. Son states he will stay with patient tonight to make sure patient is adjusting to home environment. CRISTELA DUPREE provided private duty list. CRISTELA DUPREE also informed them of respite care at area SNFs and if interested they could call facilities on SNF list that was provided. Son and MANISHA voiced appreciation and had no further questions or concerns.
--- NOTE | 2025-06-18 15:00 | CASEMGMT ---
CRISTELA DUPREE updated hospitalist regarding outpatient therapy and walker at discharge, scripts received. Referral sent to [facility] and walker provided from [facility]. CRISTELA DUPREE in to provide patient with outpatient therapy script and walker, son and DIL at bedside. Son and daughter in law concerned and states they feel patient is not able to go home with lund. Nurse currently at bedside stating patient voided and currently completing bladder scan and states patient does not need lund at discharge. Patient states he wants to go home. CRISTELA DUPREE reviewed how patient did with therapy and that insurance would not approve patient to go to SNF since he was able to ambulate 400ft twice today. Son and DIL voiced understanding. CRISTELA DUPREE provided DIL with script for outpatient therapy and information for [facility] Therapy. Son states he will stay with patient tonight to make sure patient is adjusting to home environment. CRISTELA DUPREE provided private duty list. CRISTELA DUPREE also informed them of respite care at area SNFs and if interested they could call facilities on SNF list that was provided. Son and MANISHA voiced appreciation and had no further questions or concerns.
--- NOTE | 2025-06-18 15:15 | PHA.DC_ITS ---
Pharmacy [facility] has performed discharge medication reconciliation and counseling for this patient. 1. PANTOPRAZOLE 40MG PO DAILY 2. SODIUM CHLORIDE 1GM PO TID 3. SENNA/DOCUSATE 2T PO BID PRN CONSTIPATION 4. FLUDROCORTISONE 0.2MG PO NOON 5. STOP AMLODIPINE, CINNAMON, HCTZ, TURMERIC, UBIDE The patient's discharge medication list was reviewed for discrepancies and discrepancies were resolved. The patient was counseled on the following discharge medications and changes in medications for homegoing were reviewed. The Reason for Use, instructions for use, and potential side effects were reviewed for all new medications. The patient's questions regarding all of their medications were answered. The patient was able to verbally demonstrate an understanding of their discharge medications. Medications at Discharge Home Medications isosorbide mononitrate 60 mg tablet,extended release 24 hr 60 mg PO 1200 heart 08/14/19 omega-3 fatty acids-fish oil 684 mg-1,200 mg capsule,delayed release 1 cap PO BID supplement 08/14/19 ascorbic acid (vitamin C) 1,000 mg tablet 1,000 mg PO DAILY supplement 09/01/19 cyanocobalamin (vitamin B-12) 1,000 mcg capsule 1,000 mcg PO DAILY supplement 09/01/19 magnesium oxide 400 mg (241.3 mg magnesium) tablet 400 mg PO DAILY supplement 09/01/19 tamsulosin 0.4 mg capsule 0.8 mg PO QHS as directed 09/01/19 amlodipine 10 mg tablet 10 mg PO 1200 BLOOD PRESSURE 06/15/25 ascorbic acid (vitamin C) 500 mg tablet (C-500) 500 mg PO DAILY supplement 06/15/25 aspirin 81 mg tablet,delayed release (Adult Aspirin Regimen) 81 mg PO 1200 DIRECTED 06/15/25 calcitriol 0.25 mcg capsule 0.25 mcg PO .MWF supplement 06/15/25 empagliflozin 25 mg tablet (Jardiance) 25 mg PO DAILY DIRECTED 06/15/25 glipizide 2.5 mg tablet, extended release 24 hr 2.5 mg PO DAILY DIABETES 06/15/25 losartan 100 mg tablet 100 mg PO DAILY DIRECTED 06/15/25 metoprolol succinate 100 mg tablet,extended release 24 hr 100 mg PO DAILY heart/ blood pressure 06/15/25 sertraline 50 mg tablet 50 mg PO DAILY as directed 06/15/25 sitagliptin phosphate 50 mg tablet (Januvia) 50 mg PO 1200 DIRECTED 06/15/25 vitamin A 2,400 mcg capsule 2,400 mcg PO DAILY supplement 06/15/25 vitamin E 180 mg PO DAILY supplement 06/15/25 atorvastatin 80 mg tablet 80 mg PO QHS CHOLESTEROL 06/18/25 fludrocortisone 0.1 mg tablet 0.2 mg (2 x 0.1 mg) PO 1200 30 days #60 tabs 06/18/25 pantoprazole 40 mg tablet,delayed release 40 mg PO DAILY 30 days #30 tabs sennosides 8.6 mg-docusate sodium 50 mg tablet (Stimulant Laxative Plus) 2 tab PO BID PRN PRN Constipation #0 tabs 06/18/25 sodium chloride 1,000 mg soluble tablet 1,000 mg PO TID 30 days #90 tabs 06/18/25
== END 2025-06-18 16:53 | disposition home or self-care (01) | DRG 644 ==
LOC: ED 13:07 → PCU 15:18
PROVIDERS: Anesthesiology; Internal Medicine; Internal Medicine Gastroenterology; Internal Medicine Nephrology; Admitting Provider Internal Medicine; Emergency Provider Emergency Medicine; PCP Family Medicine; Visit Provider Internal Medicine
PROC: 0DJ08ZZ Inspection of Upper Intestinal Tract, Via Natural or Artificial Opening Endoscopic (ICD-10-PCS; CPT 43235; principal; 2025-06-17 12:40)
DX: E27.49 Other adrenocortical insufficiency (principal); E87.1 Hypo-osmolality and hyponatremia; I5A Non-ischemic myocardial injury (non-traumatic); K22.10 Ulcer of esophagus without bleeding; N13.8 Other obstructive and reflux uropathy; N18.4 Chronic kidney disease, stage 4 (severe); I25.810 Atherosclerosis of coronary artery bypass graft(s) without angina pectoris; K22.2 Esophageal obstruction; E11.22 Type 2 diabetes mellitus with diabetic chronic kidney disease; I12.9 Hypertensive chronic kidney disease with stage 1 through stage 4 chronic kidney disease, or unspecified chronic kidney disease; E87.5 Hyperkalemia; E78.5 Hyperlipidemia, unspecified; K21.00 Gastro-esophageal reflux disease with esophagitis, without bleeding; K44.9 Diaphragmatic hernia without obstruction or gangrene; N40.1 Benign prostatic hyperplasia with lower urinary tract symptoms; R33.9 Retention of urine, unspecified; Z79.899 Other long term (current) drug therapy; Z79.82 Long term (current) use of aspirin; Z79.84 Long term (current) use of oral hypoglycemic drugs; Z95.5 Presence of coronary angioplasty implant and graft; Z95.1 Presence of aortocoronary bypass graft
CPT/HCPCS: 36415; 36600; 71045; 71250; 74230; 78582; 80048; 80053; 80061; 81001; 82010; 82436; 82533; 82570; 82803; 82962; 83605; 83735; 83880; 83930; 83935; 84100; 84133; 84300; 84443; 84484; 84540; 84550; 85025; 85027; 85379; 85610; 85730; 87633; 87635; 88305; 88312; 92526; 92610; 92611; 93005; 93306; 93970; 97162; 97166; 97530; 97535; 99283; A9540; A9567; Q9957; A4216; C1769; J2405

== ENCOUNTER → 2025-07-07 | Outpatient (CLI) | payer MEDICARE, SELFPAY ==
[2025-07-07 12:56] LABS: Anion Gap 10 (5-15); BUN 29 mg/dL (4-19); BUN/Creat Ratio 12.8 RATIO (10-20); Calcium,Total 8.5 mg/dL (7.6-11.0); Carbon Dioxide 24.7 mmol/L (21.0-32.0); Chloride 104 mmol/L (98-108); Glucose 157 mg/dL (70-99); Potassium 4.6 mmol/L (3.3-5.1)
[2025-07-07 20:02] LABS: Xtra Tube Kwok EXTRA TUBE
== END | disposition home or self-care (01) ==
LOC: POLAB3 12:01
PROVIDERS: PCP Family Medicine; Visit Provider Internal Medicine Nephrology
DX: E87.1 Hypo-osmolality and hyponatremia (principal)
CPT/HCPCS: 36415; 80048